=== PATIENT | male | born 1935 | race Caucasian/White ===

== ENCOUNTER 2016-07-08 11:50 | Observation (INO) ==
[2016-07-08] MEDS ORDERED: 0.9 % Sodium Chloride 1,000 ML ONE (11:58)
[2016-07-08 12:08] LABS: Basophils # 0.1 K/mcL (0.0-0.2); Basophils % 0.5 %; Eosinophils # 0.1 K/mcL (0.0-0.6); Hematocrit 37.6 % (37.5-50.1); Hemoglobin 12.3 g/dL (12.9-16.9); Immature Granulocytes % 4.4 % (0-4); Lymphocytes # 1.1 K/mcL (0.6-4.6); Lymphocytes % 11.1 %; Mean Corpuscular HGB Conc 32.7 g/dL (31.6-35.5); Mean Corpuscular Hemoglobin 31.6 pg (28.0-33.3); Mean Corpuscular Volume 96.7 fL (83.0-100.0); Mean Platelet Volume 10.1 fL (9.4-12.4); Monocytes # 0.7 K/mcL (0.0-1.3); Monocytes % 6.9 %; Neutrophils # 7.6 K/mcL (1.6-8.9); Platelet Count 264 K/mcL (140-400); Red Blood Count 3.89 M/mcL (4.19-5.50); Red Cell Distribution Width 14.6 % (11.5-14.5); Segmented Neutrophils % 76.1 %
[2016-07-08 12:12] LABS: INR 1.3; Prothrombin Time 13.6 Seconds (9.4-12.1)
[2016-07-08 12:14] LABS: Activated Partial Thrombo Time 24.8 Seconds (26.0-36.0)
[2016-07-08] MEDS ORDERED: 0.9 % Sodium Chloride 1,000 ML IVC ONE ×2 (12:16→14:57)
--- NOTE | 2016-07-08 12:17 | Emergency Department Note ---
Disposition Clinical Impression: Syncope, Lumbar transverse process fracture, Lumbar vertebral fracture, Frail elderly, Hypotension, Anemia, Renal failure, Aortic aneurysm, Renal cyst, Pneumobilia, Cerebrovascular disease Disposition: Admitted As Inpatient Condition: Fair Referrals: NO,PCP [Non-Partnered Physician] - Forms: ED Satisfaction Letter General Adult HPI - General Chief complaint: ED Syncope Stated complaint: syncope Time Seen by Provider: 07/08/16 11:57 Source: EMS Limitations: no limitations - History of Present Illness HPI Narrative: 80-year-old male was feeling well this morning, he attended [facility] with his . Apparently he stood up and had a syncopal event. The patient became unresponsive but then revived. There is no history of demetri seizure-like activity. The patient's reports there was a nurse at the [facility] who was at the scene. The was worried about a stroke but the states the nurse at the scene did not think the patient had a stroke. The patient has back pain status post syncope. Per his he has had some sort of large vessel repair in his chest or abdomen. He is not known to be anticoagulated. The patient complains of back pain. There is no history of unilateral arm weakness or numbness no slurred speech or confusion no history of demetri head injury no paresis. No lacerations or bleeding. The patient has had no chest pain shortness breath or abdominal pain no leg swelling or pain no upper or lower extremity pain or injury. No bleeding. The patient was feeling very well this morning and had no antecedent complaints. There is no history of coughing up blood or leg swelling or pain. No coolness or blueness of the extremities. The patient's reports that he appears to be pale. He came in by EMS. Pain Scale: 3 - Related Data Home Medications Medication Instructions Recorded Confirmed Alendronate Sodium [Fosamax] 70 mg PO QWEEK 04/09/15 04/09/15 Aspirin 81 mg PO DAILY 04/09/15 04/09/15 Donepezil [Aricept] 10 mg PO DAILY 04/09/15 04/09/15 InFLIXimab [Remicade] 300 mg IV [id number] 04/09/15 04/09/15 Lisinopril [Zestril] 20 mg PO DAILY 04/09/15 04/09/15 Methotrexate 0.8 ml SQ QWEEK 04/09/15 04/09/15 Metoprolol [Lopressor] 25 mg PO BID 04/09/15 04/09/15 Naproxen Sod/Diphenhydram HCl 1 tab PO BID 04/09/15 04/09/15 [Aleve Pm Caplet] Oxycodone HCl [Oxaydo] 1 - 2 tab-cap PO PRN PRN 04/09/15 04/09/15 Sertraline [Zoloft] 100 mg PO DAILY 04/09/15 04/09/15 Trospium Chloride 20 mg PO HS 04/09/15 04/09/15 Previous Rx's Medication Instructions Recorded Levofloxacin [Levaquin] 500 mg PO DAILY #7 tablet 04/09/15 HYDROcodone/Acet 5/325 mg [[place] 1 tab PO Q6H PRN #20 tab 05/16/16 5-325 mg] Allergies Allergy/AdvReac Type Severity Reaction Status Date / Time No Known Allergies Allergy Verified 04/09/15 02:11 All systems ED: reviewed and negative except as stated. Past Medical History - Past Medical History Medical history: Reports: cancer, coronary artery disease, hyperlipidemia, hypertension, RA, other Surgical history: Reports: non-contributory Psychiatric history: Reports: depression - Social History Smoking Status: Never smoker Smokeless Tobacco Status: No Alcohol use: Reports: occasionally Drug use: Reports: none Physical Exam - General Limitations: no limitations General appearance: alert, in no apparent distress - Head Head exam: atraumatic, normocephalic, normal inspection - Eye Eye exam: Present: normal appearance, PERRL, EOMI, miosis. Absent: scleral icterus, conjunctival injection - ENT ENT exam: normal exam, normal oropharynx, mucous membranes moist, normal external ear exam (Hearing aids bilaterally) - Neck Neck exam: Present: normal inspection, full ROM, trachea midline - Chest Chest inspection: Present: normal inspection, symmetric chest wall rise. Absent : tenderness - Respiratory Respiratory exam: Present: normal lung sounds bilaterally. Absent: respiratory distress, prolonged expiratory phase - Cardiovascular Cardiovascular exam: Present: regular rate, normal rhythm, normal heart sounds - Abdominal Exam Abdominal exam: Present: soft, Non-Tender, normal bowel sounds. Absent: tenderness, distention, guarding, rebound, rigidity, trauma, pulsatile mass - Extremities Exam Extremities exam: Present: normal inspection, full ROM, normal capillary refill. Absent: tenderness, pedal edema, joint swelling, calf tenderness - Expanded Lower Extremity Exam Hip/Pelvis exam: Present: full ROM. Absent: tenderness Upper leg exam: Present: full ROM. Absent: tenderness Knee exam: Present: full ROM. Absent: tenderness Lower leg exam: Present: full ROM. Absent: tenderness, Homans' sign Foot/toe exam: Present: full ROM. Absent: tenderness Neurovascular/Tendon exam: Present: normal capillary refill. Absent: motor deficit, sensory deficit, tendon deficit, extremity cold to touch, pallor - Back Exam Back exam: Present: normal inspection, full ROM, tenderness. Absent: CVA tenderness (R), CVA tenderness (L) - Neurological Exam Neurological exam: Present: alert, oriented X3, CN II-XII intact. Absent: motor sensory deficit - Psychiatric Psychiatric exam: Present: normal affect, normal mood - Skin Skin exam: Present: warm, dry, intact, normal color. Absent: rash, cyanosis, diaphoresis, erythema, pallor, mottled Course Vital Signs Temperature 97.7 F 07/08/16 11:51 Pulse Rate 65 07/08/16 11:51 Respiratory Rate 18 07/08/16 11:51 Blood Pressure 85/54 07/08/16 11:51 O2 Sat by Pulse Oximetry 93 07/08/16 11:51 Temperature 97.7 F 07/08/16 11:51 Pulse Rate 65 07/08/16 11:51 Respiratory Rate 18 07/08/16 11:51 Blood Pressure 85/54 07/08/16 11:51 O2 Sat by Pulse Oximetry 93 07/08/16 11:51 Oxygen Delivery Oxygen Delivery Room Air Medical Decision Making - [facility] Narrative Medical decision making narrative: The patient is elderly and had a syncopal event, his blood pressure was noted to be low here. The patient was given IV fluids, his imaging reveals lumbar compression fracture as well as lumbar spinous process fractures. The patient has a known history of aortic aneurysm, no evidence of dissection at this time. The patient was given fentanyl in the ED for pain control. Based on his syncopal event, multiple comorbidities, acute spinal fractures, and persistent hypotension, I thought it would be appropriate to admit the patient to the hospital. I discussed the case with the hospitalist on all was accepted the patient to their care. - Lab Data Lab results reviewed: Yes I reviewed the patient's lab results. Result diagrams: 07/08/16 12:00 07/08/16 12:00 Lab Results 07/08/16 07/08/16 07/08/16 Range/Units 12:00 12:00 12:00 WBC 10.0 (4.3-11.1) K/mcL RBC 3.89 L (4.19-5.50) M/mcL Hgb 12.3 L (12.9-16.9) g/dL Hct 37.6 (37.5-50.1) % MCV 96.7 (83.0-100.0) fL MCH 31.6 (28.0-33.3) pg MCHC 32.7 (31.6-35.5) g/dL RDW 14.6 H (11.5-14.5) % Plt Count 264 (140-400) K/mcL MPV 10.1 (9.4-12.4) fL Immature Gran % 4.4 H (0-4) % Seg Neutrophils % 76.1 % Lymphocytes % 11.1 % Monocytes % 6.9 % Eosinophils % 1.0 % Basophils % 0.5 % Neutrophils # 7.6 (1.6-8.9) K/mcL Lymphocytes # 1.1 (0.6-4.6) K/mcL Monocytes # 0.7 (0.0-1.3) K/mcL Eosinophils # 0.1 (0.0-0.6) K/mcL Basophils # 0.1 (0.0-0.2) K/mcL PT 13.6 H (9.4-12.1) Seconds INR 1.3 APTT 24.8 L (26.0-36.0) Seconds Sodium 139 (136-145) mEq/L Potassium 3.9 (3.5-4.5) mEq/L Chloride 105 (98-109) mEq/L Carbon Dioxide 23 (19-29) mEq/L BUN 14 (8-26) mg/dL Creatinine 1.40 H (0.72-1.25) mg/dL Est GFR ( Amer) 59 L (> 60) Est GFR (Non-Af Amer) 49 L (> 60) BUN/Creatinine Ratio 10 (6-26) Glucose 118 H (70-99) mg/dL Calculated Osmolality 290 (280-300) Lactic Acid (0.5-2.2) mmol/L Calcium 8.7 (8.6-10.8) mg/dL Total Bilirubin 0.8 (0.2-1.2) mg/dL Direct Bilirubin 0.3 (0.0-0.5) mg/dL Indirect Bilirubin 0.5 (0.0-1.2) mg/dL AST 20 (5-34) Units/L ALT 20 (0-55) Units/L Alkaline Phosphatase 64 (38-126) Units/L Troponin I (0-0.03) ng/mL C-Reactive Protein (Less than 5) mg/L Serum Total Protein 6.3 (6.0-8.3) g/dL Albumin 2.7 L (3.5-5.0) g/dL Globulin 3.6 H (2.4-3.5) g/dL Albumin/Globulin Ratio 0.8 L (1.1-2.2) 07/08/16 07/08/16 07/08/16 Range/Units 12:00 12:00 12:00 WBC (4.3-11.1) K/mcL RBC (4.19-5.50) M/mcL Hgb (12.9-16.9) g/dL Hct (37.5-50.1) % MCV (83.0-100.0) fL MCH (28.0-33.3) pg MCHC (31.6-35.5) g/dL RDW (11.5-14.5) % Plt Count (140-400) K/mcL MPV (9.4-12.4) fL Immature Gran % (0-4) % Seg Neutrophils % % Lymphocytes % % Monocytes % % Eosinophils % % Basophils % % Neutrophils # (1.6-8.9) K/mcL Lymphocytes # (0.6-4.6) K/mcL Monocytes # (0.0-1.3) K/mcL Eosinophils # (0.0-0.6) K/mcL Basophils # (0.0-0.2) K/mcL PT (9.4-12.1) Seconds INR APTT (26.0-36.0) Seconds Sodium (136-145) mEq/L Potassium (3.5-4.5) mEq/L Chloride (98-109) mEq/L Carbon Dioxide (19-29) mEq/L BUN (8-26) mg/dL Creatinine (0.72-1.25) mg/dL Est GFR ( Amer) (> 60) Est GFR (Non-Af Amer) (> 60) BUN/Creatinine Ratio (6-26) Glucose (70-99) mg/dL Calculated Osmolality (280-300) Lactic Acid 1.7 (0.5-2.2) mmol/L Calcium (8.6-10.8) mg/dL Total Bilirubin (0.2-1.2) mg/dL Direct Bilirubin (0.0-0.5) mg/dL Indirect Bilirubin (0.0-1.2) mg/dL AST (5-34) Units/L ALT (0-55) Units/L Alkaline Phosphatase (38-126) Units/L Troponin I 0.00 (0-0.03) ng/mL C-Reactive Protein 33 H (Less than 5) mg/L Serum Total Protein (6.0-8.3) g/dL Albumin (3.5-5.0) g/dL Globulin (2.4-3.5) g/dL Albumin/Globulin Ratio (1.1-2.2) - Radiology Data Radiology results reviewed: Yes I reviewed the patient's radiology results.
[2016-07-08 12:21] LABS: Albumin 2.7 g/dL (3.5-5.0); Albumin/Globulin Ratio 0.8 (1.1-2.2); Bilirubin,Direct 0.3 mg/dL (0.0-0.5); Bilirubin,Indirect 0.5 mg/dL (0.0-1.2); Bilirubin,Total 0.8 mg/dL (0.2-1.2); Calcium 8.7 mg/dL (8.6-10.8); Globulin 3.6 g/dL (2.4-3.5); Potassium 3.9 mEq/L (3.5-4.5); Total Protein 6.3 g/dL (6.0-8.3)
[2016-07-08] MEDS ORDERED: Ondansetron 4 MG/2 ML VIAL IVP ONE (13:37)
[2016-07-08] MEDS ORDERED: *HR* FentaNYL (PF) 100 MCG/2 ML VIAL IVP ONE (13:38)
[2016-07-08 15:19] LABS: Bilirubin,Urine Negative (Negative); Blood,Urine Negative (Negative); Clarity,Urine Clear (Clear); Color,Urine Dark Yellow (Yellow); Glucose,Urine (UA) Normal (Normal); Ketones,Urine Negative (Negative); Leukocyte Esterase,Urine Negative (Negative); Nitrite,Urine Negative (Negative); PH,Urine 6.5 pH Units (5.0-8.0); Protein,Urine 30 mg/dL (Neg-Trace); Specific Gravity,Urine > 1.030 (1.010-1.025); Urobilinogen,Urine Normal (Normal)
[2016-07-08 15:20] LABS: Hyaline Casts,Urine None Seen per lpf (None-Few)
[2016-07-08 15:46] LABS: Squamous Epithelial Cell,Urine Few per lpf (None-Few)
[2016-07-08 15:47] LABS: Bacteria,Urine Few per hpf (None-Few); RBC,Urine 0-3 per hpf (0-3); WBC,Urine 0-3 per hpf (0-3)
[2016-07-08] MEDS ORDERED: Naloxone 0.4 MG/ML INJ IVP PRN (17:56)
[2016-07-08] MEDS ORDERED: Nitroglycerin 0.4 MG TAB.SUBL SL PRN (18:00)
--- NOTE | 2016-07-08 18:17 | Internal Med History&Physical ---
<Faith Nick - Last Filed: 07/08/16 20:08> Date of Encounter: 07/08/16 Time of Encounter: 18:06 Assessment and Plan (1) Syncope Current visit: Yes Status: Acute 1 patient experienced syncopal episode with positional change. 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 According to cardiology notes stress test was positive for ischemia , inferior wall and inferior septum. Suspected related to recent rib fracture. He had evidence of coronary artery calcification on recent chest CT at that time aggressive medical therapy with aspirin and beta raphael and low-dose nitrate therapy was initiated. Patient is on lisinopril metoprolol as well as Isorbid. Upon presentation to the ER patient's blood pressure was 85 systolic EKG sinus rhythm with multiple PVCs. Suspected this episode was related to orthostatic changes , and medications. We will hold antihypertensives for now. Obtain orthostatic vitals 2 we will give IV fluids 3 place patient on fall precautions 4 continuous cardiac monitoring 5 consult cardiology 6 patient to follow-up with [facility] concerning aneurysms as outpatient 7 cardiac echo Qualifiers: Syncope type: unspecified Qualified Code(s): R55 - Syncope and collapse (2) Hypotension Current visit: No Status: Acute 1 patient is on lisinopril I cervicitis as well as metoprolol. He did experience an episode of syncope today during positional change. Upon presentation his systolic pressure is 85. We will hold antihypertensives for now-we will reevaluate and initiate antihypertensives once back to baseline 2 we will give IV fluids 3 plus patient on fall precautions Qualifiers: Hypotension type: hypotension due to drug Qualified Code(s): I95.2 - Hypotension due to drugs (3) CAD (coronary artery disease) Current visit: Yes Status: Acute 1 patient has history of coronary disease he is chest pain free we will continue with aspirin and statin we will hold lisinopril, nitrates and beta raphael for now due to hypotension and syncope. 2 cardiac diet Qualifiers: Coronary Disease-Associated Artery/Lesion type: [place] artery [place] vs. 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 Will have patient follow-up and monitor as outpatient with [facility] Qualifiers: Aortic location: abdominal aorta Presence of rupture: without rupture Qualified Code(s): I71.4 - Abdominal aortic aneurysm, without rupture (6) Lumbar transverse process fracture Current visit: Yes Status: Acute 1 continue with pain medications 2 PT consult 3 consult spine as needed Qualifiers: Encounter type: initial encounter Fracture type: closed Qualified Code(s) : S32.008A - Other fracture of unspecified lumbar vertebra, initial encounter for closed fracture (7) DVT prophylaxis Current visit: Yes Status: Acute GABRIEL coppola Internal Medicine - H&P: HPI Chief complaint: syncope Admitted From: Emergency Dept Plans for Post Hospital Care: Home History of present illness: Mr. 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 Information obtained from medical record. Apparently the patient was [facility] this [facility] when he stood up and experienced a syncopal episode. He was unresponsive however revived within a few minutes, awake and appropriate. He did not display any seizure activity or loss of bowel or bladder during the episode. Patient denies any chest pain palpitations lightheadedness dizziness prior to the episode. He did complain of back pain status post syncope. He experienced no arm weakness numbness or speech confusion or headache injury. Denies any recent illness fevers chills nausea vomiting chest pain cough or shortness of breath. He presented to ER with above complaints. CT of patient' s head was negative for any intercurrent abnormalities. Cervical spine was negative. Lumbar spine revealed acute supine endplate fracture of L1. CTA chest abdomen revealed stable [place] type B dissection of descending thoracic aorta similar in comparison with prior exam. Stable mild basilar airspace disease.. Multiple left renal cysts. Atherosclerotic disease of the abdominal aorta with a 2.8 cm infrarenal AAA. Acute fractures of the right transverse process of L1 and L2. Mild wedge compression deformities of this. End plates of L3 and L4 which are likely chronic. Lab work was unremarkable troponin 0. Patient was given IV fluids as well as pain medication. EKG did reveal sinus rhythm with PVCs which appears to be similar to previous EKG. Patient was admitted for further workup and evaluation. Presently patient denies any chest pain shortness of breath and lightheadedness. He is alert appropriate following commands, cranial nerves II through XII intact equal strength 4. Sinus rhythm on the monitor hemodynamic stable at this time. Reviewed with Dr Thomas who agrees with plan Past Med Surg Social Fam HX - Past Medical History Medical history: cancer, coronary artery disease, hyperlipidemia, hypertension, RA, other Psychiatric history: depression - Past Surgical History Surgical History: non-contributory - Social History Smoking Status: Never smoker Smokeless Tobacco Status: No Alcohol use: occasionally Drug use: none - Family History Son Living Status: Still Living Hx Family Endocrine Disorder: Yes (dm) Internal Medicine - H&P: Meds Alendronate Sodium [Fosamax] 70 mg PO QWEEK 04/09/15 [History] Aspirin 81 mg PO DAILY 04/09/15 [History] Donepezil [Aricept] 10 mg PO DAILY 04/09/15 [History] Methotrexate 0.8 ml SQ QWEEK 04/09/15 [History] Metoprolol [Lopressor] 25 mg PO BID 04/09/15 [History] Sertraline [Zoloft] 100 mg PO DAILY 04/09/15 [History] Cholecalciferol (D-3) [Vitamin D] 1,000 unit PO DAILY 07/08/16 [History] Isosorbide MONOnitrate (24 HR) [Imdur] 30 mg PO DAILY 07/08/16 [History] Lisinopril [Zestril] 10 mg PO DAILY PRN 07/08/16 [History] Nitroglycerin [Nitrostat] 0.4 mg SL Q5M PRN 07/08/16 [History] [place]-3/Dha/Epa/Fish Oil [Fish Oil 1,000 mg Softgel] 1,000 mg PO DAILY 07/08/16 [History] Simvastatin [Zocor] 20 mg PO HS 07/08/16 [History] riTUXimab [Rituxan] 100 mg IV [id number] 07/08/16 [History] Allergies No Known Allergies Allergy (Verified 04/09/15 02:11) All Systems PM: A 10-system review of systems was performed and is negative for pertinent findings except as documented above in the HPI. - Constitutional Constitutional: no chills, no fever(s), no night sweats - Cardiovascular Cardiovascular ROS IM: syncope, no chest pain, no diaphoresis, no dyspnea, no lightheadedness, no palpitations - Respiratory Respiratory: no cough, no dyspnea, no wheezing, no excessive phlegm production - Gastrointestinal Gastrointestinal: no abdominal pain, no diarrhea, no hematemesis, no hematochezia, no melena, no nausea, no vomiting - Musculoskeletal Musculoskeletal ROS IM: back pain - Integumentary Integumentary IM: no rash, no unusual bruising - Neurological Neurological ROS: weakness - Constitutional Vitals: Temp Pulse Resp BP Pulse Ox 98.3 F 87 16 118/63 97 07/08/16 17:10 07/08/16 17:10 07/08/16 17:10 07/08/16 17:10 07/08/16 17:10 General appearance: Present: A&O X 3 - Head Head exam: Present: atraumatic, normocephalic - Neck Neck exam general surgery: Present: supple, trachea midline. Absent: lymphadenopathy - Respiratory Respiratory exam: Present: CTAB. Absent: accessory muscle use, rales, rhonchi, wheezes - Cardiovascular Cardiovascular exam: Present: RRR, +S1, +S2. Absent: diastolic murmur, gallop, rubs, systolic murmur - GI/Abdominal GI/Abdominal exam: Present: normal bowel sounds, soft, no peritoneal signs. Absent: distended, tenderness - Extremities Exam Extremities exam: Present: warm, radial pulses palpable and symetrical. Absent : calf tenderness, cyanotic, pedal edema - Neurological Exam Neurological exam: Present: CN II-XII intact, oriented X3, no focal deficits, strengths equal and symetr throughout. Absent: pronater drift, facial droop, speech deficit - Skin Skin exam: Present: dry, intact Internal Med - H&P Results - Labs CBC & Chem 7: 07/08/16 12:00 07/08/16 12:00 - EKG Data EKG shows normal: sinus rhythm - EKG Data Prior EKG available for review: yes When compared to previous EKG: there is no significant change EKG comments: 07/08/16 18:28 Frequent PVCs - Diagnostic Studies Other Images Additional comments: Head CT 07/08/16 12:01 IMPRESSION: No evidence of acute intracranial hemorrhage or mass effect. Stable mild cerebral white matter disease. D/ / Troy Abdalla MD / Troy Abdalla MD Interpreting Provider: Troy Abdalla MD Thoracic Spine CT 07/08/16 12:11 IMPRESSION: No evidence of acute fracture or subluxation in the thoracic spine. D/ / Troy Abdalla MD / Troy Abdalla MD Interpreting Provider: Troy Abdalla MD Lumbar Spine CT 07/08/16 12:12 IMPRESSION: Extensive osteopenia limits evaluation. Suspect acute superior endplate fracture of L1 without significant height loss or dorsal osseous retropulsion. D/ / Troy Abdalla MD / Troy Abdalla MD Interpreting Provider: Troy Abdalla MD Abdomen/Pelvis CTA 07/08/16 12:15 IMPRESSION: 1. 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 There is no evidence of thoracic aortic leak or rupture. 2. Stable mild bibasilar airspace disease likely reflects atelectasis, less likely aspiration or pneumonia. 3. No acute abnormality within the abdomen or pelvis. 4. Mild nonspecific left-sided pneumobilia. 5. Nonvisualization of the right kidney, likely either surgically or congenitally absent. 6. Multiple left renal cysts. 7. Atherosclerotic disease of the abdominal aorta, with a 2.8 cm infrarenal AAA. Further follow-up of this abnormality is as suggested below. 8. Acute fractures of the right transverse processes of L1 and L2. There are mild wedge compression deformities of the superior endplates of L3 and L4, which are likely chronic, however, will be fully detailed on today's lumbar CT report. RECOMMENDATIONS: Managing Abdominal Aortic Aneurysms 2.6-2.9 cm: 5 year follow up. Reference: Meera et al. The care of patients with an abdominal aortic aneurysm: The Society of Vascular Surgery practice guidelines. Journal of Vascular Surgery. Vol 50, Number 85. Khosa et al. Managing Incidental Findings on Abdominal and Pelvic CT and MRI, Part 2: White Paper of the ACR Incidental Findings Committee II on Vascular Findings. J Am Donya Radiol 2013;10:789-794 D/ / 07/08/2016 14:29:39 Bart Rios MD / Neema Ahuja Interpreting Provider: Bart Rios MD Chest CTA 07/08/16 12:15 IMPRESSION: 1. 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 There is no evidence of thoracic aortic leak or rupture. 2. Stable mild bibasilar airspace disease likely reflects atelectasis, less likely aspiration or pneumonia. 3. No acute abnormality within the abdomen or pelvis. 4. Mild nonspecific left-sided pneumobilia. 5. Nonvisualization of the right kidney, likely either surgically or congenitally absent. 6. Multiple left renal cysts. 7. Atherosclerotic disease of the abdominal aorta, with a 2.8 cm infrarenal AAA. Further follow-up of this abnormality is as suggested below. 8. Acute fractures of the right transverse processes of L1 and L2. There are mild wedge compression deformities of the superior endplates of L3 and L4, which are likely chronic, however, will be fully detailed on today's lumbar CT report. RECOMMENDATIONS: Managing Abdominal Aortic Aneurysms 2.6-2.9 cm: 5 year follow up. Reference: Meera et al. The care of patients with an abdominal aortic aneurysm: The Society of Vascular Surgery practice guidelines. Journal of Vascular Surgery. Vol 50, Number 85. Khosa et al. Managing Incidental Findings on Abdominal and Pelvic CT and MRI, Part 2: White Paper of the ACR Incidental Findings Committee II on Vascular Findings. J Am Donya Radiol 2013;10:789-794 D/ / 07/08/2016 14:29:39 Bart Rios MD / Neema Ahuja Interpreting Provider: Bart Rios MD Cervical Spine CT 07/08/16 12:16 IMPRESSION: 1. No evidence of an acute fracture in the cervical spine. D/ / 07/08/2016 14:19:44 Luigi Pack MD / Neema Ahuja Interpreting Provider: Luigi Pack MD <Chet Thomas - Last Filed: 07/08/16 21:53> Date of Encounter: 07/08/16 - Constitutional Vitals: Temp Pulse Resp BP Pulse Ox 98.6 F 70 16 119/69 93 07/08/16 20:50 07/08/16 20:50 07/08/16 20:50 07/08/16 20:50 07/08/16 20:50 General appearance: Present: A&O X 3, no acute distress - Head Head exam: Present: atraumatic, normocephalic - Expanded Head Exam Head exam expanded: Absent: abrasion, contusion, general tenderness - Respiratory Respiratory exam: Present: CTAB - Cardiovascular Cardiovascular exam: Present: RRR, +S1, +S2. Absent: diastolic murmur, JVD, systolic murmur - GI/Abdominal GI/Abdominal exam: Present: soft. Absent: tenderness - Neurological Exam Neurological exam: Present: alert, CN II-XII intact, oriented X3, no focal deficits Internal Med - H&P Results - Labs CBC & Chem 7: 07/08/16 12:00 07/08/16 12:00 Labs: Cardiac Enzymes 07/08/16 Range/Units 18:43 Troponin I 0.00 (0-0.03) ng/mL - EKG Data Prior EKG available for review: yes EKG comments: 07/08/16 21:48 Sinus rhythm with PVC's - Attending Attestation I discussed the patient COEUR D'ALENE, PMH, ROS, lab data, and exam findings with Faith Nick. I then saw and examined patient independently as well. Patient is comfortable and has no complaints. He denies any presyncopal symptoms. His BP was low upon arrival to ER. History suggests orthostatic hypotension likely related to his new meds. I agree with Faith's plan to hold Lisinopril and Imdur. I agree with ECHO and cardiology consultation given recent + stress test. Patient may not tolerate medical management and may warrant LHC. However , I'll defer to cardiology. Other than my comments and noted exam findings, I agree with Faith's assessment and plan.
[2016-07-08] MEDS: 0.9 % Sodium Chloride 1,000 ML IVC SCH (18:41)
[2016-07-08] MEDS ORDERED: Acetaminophen 325 MG TABLET PO PRN (20:09)
[2016-07-08] MEDS ORDERED: *HR* HYDROcodone/Acet 5/325 mg TABLET PO PRN (20:09)
[2016-07-09 01:16] LABS: BUN/Creatinine Ratio 12 (6-26); Blood Urea Nitrogen 14 mg/dL (8-26); Calcium 7.9 mg/dL (8.6-10.8); Carbon Dioxide 21 mEq/L (19-29); Chloride 108 mEq/L (98-109); Glucose 81 mg/dL (70-99); Osmolality,Calculated 282 (280-300); Sodium 136 mEq/L (136-145); eGFR For African Americans > 60 (> 60); eGFR For Non-African Americans > 60 (> 60)
[2016-07-09 01:26] LABS: Basophils % 0.3 %; Eosinophils # 0.1 K/mcL (0.0-0.6); Hematocrit 29.3 % (37.5-50.1); Hemoglobin 9.7 g/dL (12.9-16.9); Immature Granulocytes % 1.7 % (0-4); Lymphocytes % 10.7 %; Mean Corpuscular HGB Conc 33.1 g/dL (31.6-35.5); Mean Corpuscular Hemoglobin 31.9 pg (28.0-33.3); Mean Corpuscular Volume 96.4 fL (83.0-100.0); Mean Platelet Volume 10.6 fL (9.4-12.4); Monocytes # 0.7 K/mcL (0.0-1.3); Monocytes % 7.6 %; Neutrophils # 7.6 K/mcL (1.6-8.9); Platelet Count 177 K/mcL (140-400); Red Blood Count 3.04 M/mcL (4.19-5.50); Red Cell Distribution Width 14.4 % (11.5-14.5); Segmented Neutrophils % 78.7 %
[2016-07-09 05:57] LABS: Hematocrit 30.2 % (37.5-50.1)
[2016-07-09] MEDS: Cholecalciferol (D-3) 1,000 UNIT TABLET PO SCH (08:40)
[2016-07-09] MEDS: Aspirin 81 MG TAB.CHEW PO SCH (08:40)
[2016-07-09] MEDS ORDERED: (Omega-3/Dha/Epa/Fish Oil [Fish Oil 1,000 Mg Softgel] PO SCH (09:00)
[2016-07-09] MEDS: 0.9 % Sodium Chloride 1,000 ML IVC SCH (09:06)
--- NOTE | 2016-07-09 11:10 | Cardiology Consult Note ---
Addendum entered and electronically signed by Brad Tai CNP 07/09/16 14:19: Echo resulted--EF 50-55%, mild diastolic dysfunction. Mild TR and RI. Anticipate sign off once seen by Dr. Moyer. If systolic BP is persistently <100, then recommend decreasing his BB. Will schedule outpt follow-up with Dr. Marlena De Santiago in 2-3 weeks. Continue keeping BP log. Carotid dopplers ordered- -not yet complete. Original Note: Date of Encounter: 07/09/16 Time of Encounter: 11:02 Assessment and Plan (1) Syncope Current Visit: Yes Status: Acute Syncope likely vasovagal. Syncopal event was upon standing. BP was 85/54 on presentation. Orthostatic vitals were obtained--positive at 4AM. BP was 112/56 lying, 115/59 sitting, 94/47 standing. Orthostatics negative at 10AM. Recommend IV hydration and increased PO hydration at home, as reports he does not drink much water. 24 hour tele reviewed--AVG HR 71, PVCs, but no significant pauses or ventricular arrhythmias noted. Echo pending to evaluate structure and function. Most recent echo 03/29/15 EF 50 % with mild diastolic dysfunction. Recent stress test 06/05/16 could not rule out ischemia. Visual evidence of TID. Medical management was recommended and Imdur was started 30mg daily. Pt has been chest pain free. Does report exertional dyspnea, but no worsening. BP was noted to be lower since starting Imdur. Will discontinue Imdur. Check carotid dopplers. Carotid duplex 03/2015 showed a left mid ICA severe 60- 79% stenosis by velocity criteria but no significant plaque. Await echo results for further recommendations. 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 BP controlled. Follows with [facility]S at [facility] as outpatient (3) Carotid stenosis Current Visit: Yes Status: Chronic 03/2015 carotid dopplers showed left mid ICA severe 60-79% stenosis by velocity criteria, but no significant plaque. Recheck carotid dopplers. Reports has not been checked since 12/2015 at [facility]. Follows with PVS at [facility]. Continue ASA, Statin. Qualifiers: Laterality: left Qualified Code(s): I65.22 - Occlusion and stenosis of left carotid artery Discussion w patient/family: The assessment and plan as outlined above was discussed with the patient and/or family members who expressed understanding and agreement. All questions were answered. Thank you for involving us in the care of your patient. Please call with any questions. I will discuss all the above with Dr. Moyer and make changes as necessary. History of Present Illness Consult date: 07/09/16 Requesting physician: Chet Thomas Consult reason: syncope Chief complaint: syncope History of present illness: Mr. Escalona is a 80 year old male with PMH of HTN, dissecting aneurysm thoracic aorta [place] type B, RA, HLD, congenital solitary kidney. Patient was at [employer] yesterday morning when he stood up and experienced a syncopal episode. He is unsure if he had dizziness or lightheadedness, stating he does not remember anything from the event. He was unresponsive, but regained consciousness within a few minutes. He did not display any seizure activity or loss of bowel or bladder during the episode. He denies chest pain. Reports exertional dyspnea, but no recent worsening. CT of head was negative for any acute abnormalities. Cervical spine was negative. Lumbar spine revealed acute supine endplate fracture of L1. CTA chest abdomen revealed stable [place] type B dissection of descending thoracic aorta similar in comparison with prior exam. Atherosclerotic disease of the abdominal aorta with a 2.8 cm infrarenal AAA. Acute fractures of the right transverse process of L1 and L2. Mild wedge compression deformities of this. End plates of L3 and L4 which are likely chronic. BP was 85/54 on presentation to ED. Troponins negative x 3. Recent stress test 06/05/16 showed hypoperfusion on rest and stress images in the inferior wall, inferior septum and inferolateral ang with normal wall motion, findings of which are consistent with artifact. However, there may be mild worsening of perfusion on stress images. Ischemia cannot be ruled out on this study. Visual evidence of TID. Pt saw Dr. Marlena De Santiago 06/20/16 and Imdur was started--recommended medical therapy as initial tx, as CP was thought to be mostly secondary to rib fractures, although his anginal equivalent may be dyspnea. After starting Imdur, reports BP was lower than usual and he also had the flu, was not eating or drinking much. Over the past week she reports appetite has improved and BP has been okay, only one reading <100 systolic. Past Med Surg Social Fam HX - Past Medical History Medical history: cancer, coronary artery disease, hyperlipidemia, hypertension, RA, other Psychiatric history: depression - Past Surgical History Surgical History: non-contributory - Social History Smoking Status: Never smoker Smokeless Tobacco Status: No Alcohol use: occasionally Drug use: none - Family History Son Living Status: Still Living Hx Family Endocrine Disorder: Yes (dm) Medications and Allergies Alendronate Sodium [Fosamax] 70 mg PO QWEEK 04/09/15 [History] Aspirin 81 mg PO DAILY 04/09/15 [History] Donepezil [Aricept] 10 mg PO DAILY 04/09/15 [History] Methotrexate 0.8 ml SQ QWEEK 04/09/15 [History] Metoprolol [Lopressor] 25 mg PO BID 04/09/15 [History] Sertraline [Zoloft] 100 mg PO DAILY 04/09/15 [History] Cholecalciferol (D-3) [Vitamin D] 1,000 unit PO DAILY 07/08/16 [History] Isosorbide MONOnitrate (24 HR) [Imdur] 30 mg PO DAILY 07/08/16 [History] Lisinopril [Zestril] 10 mg PO DAILY PRN 07/08/16 [History] Nitroglycerin [Nitrostat] 0.4 mg SL Q5M PRN 07/08/16 [History] [place]-3/Dha/Epa/Fish Oil [Fish Oil 1,000 mg Softgel] 1,000 mg PO DAILY 07/08/16 [History] Simvastatin [Zocor] 20 mg PO HS 07/08/16 [History] riTUXimab [Rituxan] 100 mg IV [id number] 07/08/16 [History] Allergies No Known Allergies Allergy (Verified 04/09/15 02:11) All Systems Review: A 10-system review of systems was performed and is negative for pertinent findings except as documented above in the HPI. - Cardiovascular Cardiovascular: dyspnea on exertion, syncope - Respiratory Respiratory: dyspnea - Musculoskeletal Musculoskeletal: back pain - Neurological Neurological: syncope Physical Examination Vital Signs, Last 4 Hours Temp Pulse Resp BP BP BP BP 07/09/16 10:34 110/55 96/51 96/55 04/10/17 08:05 98.6 F 72 18 126/72 Pulse Ox 07/09/16 10:34 07/09/16 08:05 95 Vital Signs Temp Pulse Resp BP BP BP BP 07/09/16 10:34 110/55 96/51 96/55 07/09/16 08:05 98.6 F 72 18 126/72 07/09/16 06:43 98.8 F 72 18 129/74 07/09/16 04:58 94/47 07/09/16 04:57 115/59 07/09/16 04:56 98.7 F 69 18 112/56 07/09/16 00:00 98.6 F 74 18 124/67 07/08/16 20:50 98.6 F 70 16 119/69 07/08/16 17:10 98.3 F 87 16 118/63 07/08/16 16:30 18 97/77 07/08/16 14:21 68 18 97/77 07/08/16 13:21 62 18 95/72 07/08/16 11:51 97.7 F 65 18 85/54 Pulse Ox 07/09/16 10:34 07/09/16 08:05 95 07/09/16 06:43 95 07/09/16 04:58 07/09/16 04:57 07/09/16 04:56 96 07/09/16 00:00 94 07/08/16 20:50 93 07/08/16 17:10 97 07/08/16 16:30 07/08/16 14:21 97 07/08/16 13:21 97 07/08/16 11:51 93 Intake and Output 07/08/16 07/09/16 07/09/16 23:59 07:59 15:59 Intake Total 1200 / 1200 1190 / 1190 Output Total 150 / 150 100 / 100 Balance 1050 / 1050 -100 / -100 1190 / 1190 Intake: IV Fluids 1000 / 1000 950 / 950 0.9 % Sodium Chloride 1, 1000 / 1000 950 / 950 000 ML @ 75 mls/hr IVC . [id number] ТАТЬЯНА Rx#: [id number] Oral 200 / 200 240 / 240 Output: Urine 150 / 150 100 / 100 Other: Meal Breakfast Percent of Meal Consumed 50% # Voids 1 Blood Glucose* 72 General: Conversant, No Apparent Distress HEENT: Atraumatic, Normocephaly, Mucus Membranes Moist Neck: No JVD, Normal carotid pulses Cardiac: Reg Rate and Rhythm, Normal S1 and S2, No Murmur Lungs: Normal Breath Sounds, No Wheeze, Rales, Rhonchi Neuro: Alert and responsive, No focal deficits noted Abdomen: Soft, Non-Tender Skin: No rashes noted on visualized skin Musculoskeletal: No Chest Wall Tenderness Extremities: No Clubbing, No Cyanosis, No Edema, Normal Pulses Results 07/09/16 05:34 07/09/16 00:55 Lab Results 07/08/16 07/09/16 07/09/16 18:43 00:55 00:55 WBC 9.7 Hgb 9.7 L D Hct 29.3 L Plt Count 177 Sodium Potassium Chloride Carbon Dioxide BUN Creatinine Glucose Calcium Troponin I 0.00 0.00 07/09/16 07/09/16 00:55 05:34 WBC Hgb 10.0 L Hct 30.2 L Plt Count Sodium 136 Potassium 4.0 Chloride 108 Carbon Dioxide 21 BUN 14 Creatinine 1.15 Glucose 81 Calcium 7.9 L Troponin I Short CBC 07/09/16 07/09/16 07/08/16 Range/Units 05:34 00:55 12:00 WBC 9.7 10.0 (4.3-11.1) K/mcL Hgb 10.0 L 9.7 L D 12.3 L (12.9-16.9) g/dL Hct 30.2 L 29.3 L 37.6 (37.5-50.1) % Plt Count 177 264 (140-400) K/mcL Neutrophils # 7.6 7.6 (1.6-8.9) K/mcL BMP 07/09/16 07/08/16 Range/Units 00:55 12:00 Sodium 136 139 (136-145) mEq/L Potassium 4.0 3.9 (3.5-4.5) mEq/L Chloride 108 105 (98-109) mEq/L Carbon Dioxide 21 23 (19-29) mEq/L BUN 14 14 (8-26) mg/dL Creatinine 1.15 1.40 H (0.72-1.25) mg/dL Glucose 81 118 H (70-99) mg/dL Calcium 7.9 L 8.7 (8.6-10.8) mg/dL Cardiac Enzymes 07/09/16 07/08/16 07/08/16 Range/Units 00:55 18:43 12:00 Troponin I 0.00 0.00 0.00 (0-0.03) ng/mL Liver Function 07/08/16 Range/Units 12:00 Total Bilirubin 0.8 (0.2-1.2) mg/dL Direct Bilirubin 0.3 (0.0-0.5) mg/dL AST 20 (5-34) Units/L ALT 20 (0-55) Units/L Alkaline Phosphatase 64 (38-126) Units/L Albumin 2.7 L (3.5-5.0) g/dL Urine 07/08/16 Range/Units 14:45 Urine Color Dark Yellow (Yellow) Urine Clarity Clear (Clear) Urine pH 6.5 (5.0-8.0) pH Units Ur Specific [place] > 1.030 H (1.010-1.025) Urine Protein 30 H (Neg-Trace) mg/dL Urine Glucose (UA) Normal (Normal) mg/dL Impressions Head CT 07/08/16 12:01 IMPRESSION: No evidence of acute intracranial hemorrhage or mass effect. Stable mild cerebral white matter disease. D/ / Troy Abdalla MD / Troy Abdalla MD Interpreting Provider: Troy Abdalla MD Thoracic Spine CT 07/08/16 12:11 IMPRESSION: No evidence of acute fracture or subluxation in the thoracic spine. D/ / Troy Abdalla MD / Troy Abdalla MD Interpreting Provider: Troy Abdalla MD Lumbar Spine CT 07/08/16 12:12 IMPRESSION: Extensive osteopenia limits evaluation. Suspect acute superior endplate fracture of L1 without significant height loss or dorsal osseous retropulsion. D/ / Troy Abdalla MD / Troy Abdalla MD Interpreting Provider: Troy Abdalla MD Abdomen/Pelvis CTA 07/08/16 12:15 IMPRESSION: 1. Stable [place] type B dissection of the descending thoracic aorta, which appears similar in comparison with prior exams, and no evidence of intrathoracic or intra-abdominal extension. There is no evidence of thoracic aortic leak or rupture. 2. Stable mild bibasilar airspace disease likely reflects atelectasis, less likely aspiration or pneumonia. 3. No acute abnormality within the abdomen or pelvis. 4. Mild nonspecific left-sided pneumobilia. 5. Nonvisualization of the right kidney, likely either surgically or congenitally absent. 6. Multiple left renal cysts. 7. Atherosclerotic disease of the abdominal aorta, with a 2.8 cm infrarenal AAA. Further follow-up of this abnormality is as suggested below. 8. Acute fractures of the right transverse processes of L1 and L2. There are mild wedge compression deformities of the superior endplates of L3 and L4, which are likely chronic, however, will be fully detailed on today's lumbar CT report. RECOMMENDATIONS: Managing Abdominal Aortic Aneurysms 2.6-2.9 cm: 5 year follow up. Reference: Meera et al. The care of patients with an abdominal aortic aneurysm: The Society of Vascular Surgery practice guidelines. Journal of Vascular Surgery. Vol 50, Number 85. Jay et al. Managing Incidental Findings on Abdominal and Pelvic CT and MRI, Part 2: White Paper of the ACR Incidental Findings Committee II on Vascular Findings. J Am Donya Radiol 2013;10:789-794 D/ / 07/08/2016 14:29:39 Bart Rios MD / Neema Ahuja Interpreting Provider: Bart Rios MD Chest CTA 07/08/16 12:15 IMPRESSION: 1. Stable [place] type B dissection of the descending thoracic aorta, which appears similar in comparison with prior exams, and no evidence of intrathoracic or intra-abdominal extension. There is no evidence of thoracic aortic leak or rupture. 2. Stable mild bibasilar airspace disease likely reflects atelectasis, less likely aspiration or pneumonia. 3. No acute abnormality within the abdomen or pelvis. 4. Mild nonspecific left-sided pneumobilia. 5. Nonvisualization of the right kidney, likely either surgically or congenitally absent. 6. Multiple left renal cysts. 7. Atherosclerotic disease of the abdominal aorta, with a 2.8 cm infrarenal AAA. Further follow-up of this abnormality is as suggested below. 8. Acute fractures of the right transverse processes of L1 and L2. There are mild wedge compression deformities of the superior endplates of L3 and L4, which are likely chronic, however, will be fully detailed on today's lumbar CT report. RECOMMENDATIONS: Managing Abdominal Aortic Aneurysms 2.6-2.9 cm: 5 year follow up. Reference: Meera et al. The care of patients with an abdominal aortic aneurysm: The Society of Vascular Surgery practice guidelines. Journal of Vascular Surgery. Vol 50, Number 85. Jay et al. Managing Incidental Findings on Abdominal and Pelvic CT and MRI, Part 2: White Paper of the ACR Incidental Findings Committee II on Vascular Findings. J Am Donya Radiol 2013;10:789-794 D/ / 07/08/2016 14:29:39 Bart Rios MD / Neema Ahuja Interpreting Provider: Bart Rios MD Cervical Spine CT 07/08/16 12:16 IMPRESSION: 1. No evidence of an acute fracture in the cervical spine. D/ / 07/08/2016 14:19:44 Luigi Pack MD / Neema Ahuja Interpreting Provider: Luigi Pack MD Active Medications Acetaminophen (Tylenol) 650 mg PO Q6HR PRN PRN Reason: Mild Pain/Fever Stop: 01/07/17 20:10 Acetaminophen/Hydrocodone Bitart ([place] 5-325 Mg) 1 tab PO Q6HR PRN PRN Reason: Moderate Pain Stop: 01/07/17 20:10 Last Admin: 07/08/16 21:08 Dose: 1 tab Aspirin (Aspirin) 81 mg PO DAILY ТАТЬЯНА Stop: 10/10/17 09:01 Last Admin: 07/09/16 08:40 Dose: 81 mg Donepezil HCl (Aricept) 10 mg PO DAILY ТАТЬЯНА Stop: 01/08/17 09:01 Last Admin: 07/09/16 08:40 Dose: 10 mg Sodium Chloride (0.9 % Sodium Chloride) 1,000 mls @ 75 mls/hr IVC .[id number] ТАТЬЯНА Stop: 01/07/17 18:01 Last Admin: 07/09/16 09:06 Dose: 75 mls/hr Metoprolol Tartrate (Lopressor) 25 mg PO BID ТАТЬЯНА Stop: 01/08/17 09:01 Last Admin: 07/09/16 08:40 Dose: 25 mg Naloxone HCl (Narcan) 0.4 mg IVP Q2MIN PRN PRN Reason: Opioid Reversal Stop: 01/07/17 17:57 Nitroglycerin (Nitroglycerin) 0.4 mg SL Q5M PRN PRN Reason: Chest Pain Stop: 01/07/17 18:01 Pharmacy Profile Note (Patient Taking Own Medication) 0 each PO DAILY ТАТЬЯНА Stop: 01/08/17 09:01 Last Admin: 07/09/16 08:41 Dose: Not Given Sertraline HCl (Zoloft) 100 mg PO DAILY [facility] Stop: 01/08/17 09:01 Last Admin: 07/09/16 08:40 Dose: 100 mg Simvastatin (Zocor) 20 mg PO HS ТАТЬЯНА PRN Reason: Protocol Stop: 01/07/17 21:01 Last Admin: 07/08/16 21:02 Dose: 20 mg Vitamin D (Vitamin D) 1,000 unit PO DAILY ТАТЬЯНА Stop: 01/08/17 09:01 Last Admin: 07/09/16 08:40 Dose: 1,000 unit - Imaging and Cardiology Chest Xray: report reviewed Stress Test: report reviewed Echo: pending - EKG Interpretation EKG results cardiology: personally reviewed, other (24 hour tele AVG HR 71, SR, PVCs, no significant pauses) Consult Discharge Plan - Plan Referrals: Marlena Babcock MD [Primary Care Provider] -
--- NOTE | 2016-07-09 13:30 | ECHO - Doppler Report ---
Echocardiogram Name: Feliciano Escalona Date of Study: 07/09/2016 Date: 1935 Ht: 74.0 in Medical Record#: [id number] Age: 80 Wt: 210.0 lb Gender: Male BSA: 2.22 Order #: [id number] Location: [facility] Room #: [facility] Reading Physician: Saad Gudino DO, FAISAL, BEBE BLANCA Water Resource Consultant: Andrea Borja RN Ordering Physician: Faith Nick CNP Primary Physician: Marlena Babcock MD Indications: Syncope Impressions: LVEF 50-55%. Normal LV chamber size, wall thickness and low normal function. Mild left ventricular diastolic dysfunction. Atypical septal motion of unclear etiology. Normal right ventricular structure and function. Mild tricuspid regurgitation. Mild pulmonary hypertension. Estimated RVSP is 42 mmHg. Left Ventricular Wall Motion: Rest Echo Findings All wall segments showed normal motion. Findings: Study Quality * Technically adequate exam. ECG Findings * Normal sinus rhythm. Left Ventricle * LVEF 50-55%. * Normal LV chamber size, wall thickness and low normal function. * Mild left ventricular diastolic dysfunction. * Atypical septal motion of unclear etiology. Right Ventricle * Normal right ventricular structure and function. Left Atrium * Not well visualized. Right Atrium * Not well visualized. Interatrial Septum * Interatrial septum not well evaluated. Aortic Valve * Trileaflet aortic valve with normal function. * No aortic stenosis. * Trace aortic regurgitation. Mitral Valve * Normal mitral valve structure and function. * No mitral stenosis. * No mitral regurgitation. Tricuspid Valve * Normal tricuspid valve structure. * Mild tricuspid regurgitation. * Mild pulmonary hypertension. * Estimated RVSP is 42 mmHg. * Estimated RA pressure is 5 mmHg. Pulmonic Valve * Pulmonic valve not well visualized. * Trace pulmonic regurgitation. Aorta * Normally sized aortic root. Pericardium * The pericardium appears normal. IVC * The IVC is not well evaluated. Pulmonary Artery * Pulmonary artery not well visualized. History Hypertension Family History of CAD 03/29/2015 a Previous Echo was performed. Measurements: BP: 126/ 72 2D Normal Values IVSd: 1.30 cm 0.6 - 1.0 cm LVIDd: 4.00 cm 3.7 - 5.6 cm LVPWd: 1.30 cm 0.6 - 1.1 cm LVIDs: 2.80 cm 1.5 - 3.6 cm LA: 3.20 cm 2.0 - 4.0cm %FS: 30.00 cm >25 % LVOT Diam: 2.00 cm LA volume: Mitral Valve Peak E:.64 m/sec Peak A:.77 m/sec E/A Ratio:0.8 Peak E' Lat Jonathan:8.77 cm/s Peak E' Med Jonathan:6.43 cm/s E/E' Lat Ratio:7.3 E/E' Med Ratio:9.9 Aortic Valve AI pressure Half-time: 564.00 msec Tricuspid Valve TV Regurg Peak Grad: 37.00mmHg TV Regurg Peak Jonathan: 3.06m/sec Updated by Saad Gudino DO, FACChace, BEBE BLANCA on 07/09/2016 1:25:23 PM electronically signed on 07/09/2016 1:25:50 PM with status of Final Wall Motion Jhaveri: 1=Normal, 2=Hypokinesis, 3=Akinesis, 4=Dyskinesis, 5=Aneurysmal, 6=Hyperkinetic, X=Not Visualized (Blank)=Missing
--- NOTE | 2016-07-09 16:03 | Internal Med Progress Note ---
Date of Encounter: 07/09/16 Time of Encounter: 10:20 - Assessment and plan (1) Syncope Current Visit: Yes Status: Acute Assessment and plan: Likely vasovagal 2D echo report noted Imdur discontinued cardiology consultation appreciated awaiting carotid dopplers no recurrent episodes reported will continue to monitor Qualifiers: Syncope type: unspecified Qualified Code(s): R55 - Syncope and collapse (2) Hypotension Current Visit: No Status: Acute Assessment and plan: resolved at this time discontinued home dose of Imdur restarted home medications with parameters continue to closely monitor Qualifiers: Hypotension type: hypotension due to drug Qualified Code(s): I95.2 - Hypotension due to drugs (3) Lumbar transverse process fracture Current Visit: Yes Status: Chronic Assessment and plan: continue home pain medications Qualifiers: Encounter type: initial encounter Fracture type: closed Qualified Code(s) : S32.008A - Other fracture of unspecified lumbar vertebra, initial encounter for closed fracture (4) CAD (coronary artery disease) Current Visit: Yes Status: Chronic Assessment and plan: no signs of angina present at this time cardiology input appreciated continue home medications at this time Qualifiers: Coronary Disease-Associated Artery/Lesion type: [place] artery [place] vs. 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 Resting in bed with present at bedside. Reports of having decreased BP readings since initiation of Imdur. No prior episodes of syncope reported. Denies any headache, lightheadedness, chest pain, palpatations, sob at this time. Patient to undergo cardiac work, if negative, likely d/c in am. - Constitutional Vitals: Temp Pulse Resp BP Pulse Ox 98.9 F 71 18 144/81 97 07/09/16 14:30 07/09/16 14:30 07/09/16 14:30 07/09/16 14:30 07/09/16 14:30 General appearance: Present: A&O X 3, no acute distress - Head Head exam: Present: atraumatic, normocephalic - Eye Eye exam: Present: conjuntiva pink, sclera anicteric - Respiratory Respiratory exam: Present: CTAB. Absent: accessory muscle use, rales, rhonchi, wheezes - Cardiovascular Cardiovascular exam: Present: RRR, +S1, +S2. Absent: diastolic murmur, gallop, rubs, systolic murmur - GI/Abdominal GI/Abdominal exam: Present: normal bowel sounds, soft, no peritoneal signs. Absent: distended, tenderness - Extremities Exam Extremities exam: Present: warm, radial pulses palpable and symetrical. Absent : calf tenderness, cyanotic, pedal edema - Neurological Exam Neurological exam: Present: alert, oriented X3 - Psychiatric Psychiatric exam: Present: normal affect, normal mood Internal Medicine: Result - Labs CBC & Chem 7: 07/09/16 05:34 07/09/16 00:55 Labs: Short CBC 07/09/16 07/09/16 Range/Units 00:55 05:34 WBC 9.7 (4.3-11.1) K/mcL Hgb 9.7 L D 10.0 L (12.9-16.9) g/dL Hct 29.3 L 30.2 L (37.5-50.1) % Plt Count 177 (140-400) K/mcL Neutrophils # 7.6 (1.6-8.9) K/mcL BMP 07/09/16 00:55 Sodium 136 Potassium 4.0 Chloride 108 Carbon Dioxide 21 BUN 14 Creatinine 1.15 Glucose 81 Calcium 7.9 L Cardiac Enzymes 07/08/16 07/09/16 Range/Units 18:43 00:55 Troponin I 0.00 0.00 (0-0.03) ng/mL - ABG Interpretation ABG results: PT/INR, D-dimer PT 13.6 Seconds (9.4-12.1) H 07/08/16 12:00 - VTE Documentation of Mechanical Device: Graduated compression elastic hosiery Consult Discharge Plan - Plan Referrals: Marlena Babcock MD [Primary Care Provider] -
--- NOTE | 2016-07-09 17:47 | Electrocardiograph Report ---
[place] [id number] Test Date: 2016-07-08 Pat Name: Feliciano Escalona Department: 103 Room: 3A11 Gender: M [employer]: : 1935 Requested By: oDnis Robb Order Number: [id number] Reading MD: Boo De Santiago Measurements Intervals [place] Rate: 62 P: 61 IN: 174 QRS: 14 QRSD: 105 T: 38 QT: 390 QTc: 396 Interpretive Statements SINUS RHYTHM WITH OCCASIONAL VENTRICULAR PREMATURE COMPLEXES Electronically Signed On 07-09-2016 17:46:18 EDT by Boo De Santiago
[2016-07-10] MEDS: 0.9 % Sodium Chloride 1,000 ML IVC SCH (02:46)
[2016-07-10 05:37] LABS: Basophils # 0.1 K/mcL (0.0-0.2); Basophils % 0.5 %; Eosinophils # 0.2 K/mcL (0.0-0.6); Eosinophils % 1.9 %; Hematocrit 32.6 % (37.5-50.1); Hemoglobin 10.9 g/dL (12.9-16.9); Immature Granulocytes % 1.8 % (0-4); Lymphocytes # 0.9 K/mcL (0.6-4.6); Lymphocytes % 7.9 %; Mean Corpuscular HGB Conc 33.4 g/dL (31.6-35.5); Mean Corpuscular Hemoglobin 31.9 pg (28.0-33.3); Mean Corpuscular Volume 95.3 fL (83.0-100.0); Monocytes % 8.8 %; Neutrophils # 8.8 K/mcL (1.6-8.9); Platelet Count 167 K/mcL (140-400); Red Blood Count 3.42 M/mcL (4.19-5.50); Red Cell Distribution Width 14.3 % (11.5-14.5); Segmented Neutrophils % 79.1 %
[2016-07-10 06:01] LABS: BUN/Creatinine Ratio 10 (6-26); Blood Urea Nitrogen 10 mg/dL (8-26); Calcium 8.2 mg/dL (8.6-10.8); Carbon Dioxide 20 mEq/L (19-29); Chloride 105 mEq/L (98-109); Glucose 81 mg/dL (70-99); Magnesium 1.5 mg/dL (1.6-2.6); Osmolality,Calculated 276 (280-300); Phosphorous 1.7 mg/dL (2.3-4.7); Potassium 3.7 mEq/L (3.5-4.5); Sodium 134 mEq/L (136-145); eGFR For African Americans > 60 (> 60); eGFR For Non-African Americans > 60 (> 60)
--- NOTE | 2016-07-10 09:01 | Discharge Summary ---
Date of Encounter: 07/10/16 Time of Encounter: 08:30 - Discharge Diagnosis (1) Syncope Priority: Primary Status: Acute Qualifiers: Syncope type: unspecified Qualified Code(s): R55 - Syncope and collapse (2) Dehydration Priority: Primary Status: Acute (3) Hypotension Priority: Primary Status: Acute Qualifiers: Hypotension type: orthostatic hypotension Qualified Code(s): I95.1 - Orthostatic hypotension (4) Acute kidney injury Priority: Primary Status: Acute (5) Dementia Priority: Secondary Status: Chronic Qualifiers: Dementia type: unspecified type Dementia behavioral disturbance: without behavioral disturbance Qualified Code(s): F03.90 - Unspecified dementia without behavioral disturbance (6) Carotid stenosis Priority: Secondary Status: Chronic Qualifiers: Laterality: left Qualified Code(s): I65.22 - Occlusion and stenosis of left carotid artery (7) Dissecting aneurysm of thoracic aorta, [place]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 (8) Hypertension Priority: Secondary Status: Chronic Qualifiers: Hypertension type: essential hypertension Qualified Code(s): I10 - Essential (primary) hypertension (9) Lumbar transverse process fracture Priority: Secondary Status: Chronic Qualifiers: Encounter type: initial encounter Fracture type: closed Qualified Code(s) : S32.008A - Other fracture of unspecified lumbar vertebra, initial encounter for closed fracture (10) Rheumatoid arthritis Priority: Secondary Status: Chronic Qualifiers: Rheumatoid arthritis location: unspecified site Rheumatoid factor presence : unspecified presence Qualified Code(s): M06.9 - Rheumatoid arthritis, unspecified - Discharge Medications Prescriptions: Cane - Quad [QUAD CANE] 1 each .ROUTE AD #1 each Lisinopril [Zestril] 2.5 mg PO HS #30 tablet Walker W Wheels [WHEELED WALKER] 1 each .ROUTE AD #1 each Home Medications: Alendronate Sodium [Fosamax] 70 mg PO QWEEK 04/09/15 [History] Aspirin 81 mg PO DAILY 04/09/15 [History] Donepezil [Aricept] 10 mg PO DAILY 04/09/15 [History] Methotrexate 0.8 ml SQ QWEEK 04/09/15 [History] Metoprolol [Lopressor] 25 mg PO BID 04/09/15 [History] Sertraline [Zoloft] 100 mg PO DAILY 04/09/15 [History] Cholecalciferol (D-3) [Vitamin D] 1,000 unit PO DAILY 07/08/16 [History] Nitroglycerin [Nitrostat] 0.4 mg SL Q5M PRN 07/08/16 [History] [place]-3/Dha/Epa/Fish Oil [Fish Oil 1,000 mg Softgel] 1,000 mg PO DAILY 07/08/16 [History] Simvastatin [Zocor] 20 mg PO HS 07/08/16 [History] riTUXimab [Rituxan] 100 mg IV [id number] 07/08/16 [History] Cane - Quad [QUAD CANE] 1 each .ROUTE AD #1 each 07/10/16 [Rx] Lisinopril [Zestril] 2.5 mg PO HS #30 tablet 07/10/16 [Rx] Walker W Wheels [WHEELED WALKER] 1 each .ROUTE AD #1 each 07/10/16 [Rx] Allergies/Adverse Reactions: Allergies No Known Allergies Allergy (Verified 04/09/15 02:11) Procedures/tests Complete & Pending: Procedures Performed prior 72 hours Category Date Time Status ECG 12 lead ECG [ECG] AM 0600 Y 07/09/16 06:00 Ordered EV carotid duplex imaging BI Routine Y 07/10/16 11:50 Completed EV echocardiogram Routine Y 07/09/16 20:05 Completed Date of admission: 07/08/16 15:46 Primary care physician: Marlena Babcock MD Consults: 07/08/16 17:59 Consult to Physical Therapy [CONS] Routine Comment: Evaluate, develop and implement POC 07/08/16 20:05 Consult to Cardiology [CONS] Routine Comment: Consulting Provider: Cardiology Keila Reason for Consult: syncope Time Notified: 20:05 Call Completed: No - Patient Status Disposition: Home Health Service Condition: Good Functional capacity at discharge: uses cane/walker Overall status at discharge: patient is back to baseline - Discharge Instructions Instructions: Syncope (DC), Hypotension (DC) Follow Up With: Marlena Babcock MD [Primary Care Provider] - 07/16/16 10:20 am (f/u in 1 week) Additional Instructions: CHECK YOUR BLOOD PRESSURE AT LEAST TWICE DAILY (SAME TIME EVERY DAY), MAKE A LOG AND BRING NUMBERS TO DOCTOR APPOINTMENT. USE ALWAYS YOUR WALKER FOLLOW UP WITH DOCTOR AT [facility] FOR AORTIC ANEURYSM DRINK FLUIDS AT HOME, AT LEAST 2 LITERS A DAY - Diet and Activity Activity: ambulate only with your walker Diet: low fat, low cholesterol, low salt diet Interval History: Patient denies any chest pain, shortness of breath, or dizziness. He is ambulating to the bathroom without any issues. He is eating well. Hospital course: Mr. Escalona is a 80 year old male with past medical history of CAD, CVA, hypertension and hyperlipidemia who presented after a syncopal episode. He was admitted with diagnoses of hypotension secondary to dehydration and was started with IV fluids. His home dose of oral Imdur was stopped and his lisinopril was decreased to 2.5 mg as needed for systolic blood pressure above 130. Patient had no more syncopal episodes during this hospitalization. Doppler of carotid was unremarkable. Echocardiogram revealed LVEF 50%, mild diastolic dysfunction. Chest CTA shows a stable dissecting aneurysm of the thoracic aorta. PLAN: Patient instructed to drink plenty of fluids. Check blood pressure at least twice daily. Follow-up at [facility] for aortic aneurysm as scheduled. - Time Spent with Patient Total time spent providing and/or coordinating discharge services: - Constitutional Vitals: Temp Pulse Resp BP Pulse Ox 97.6 F 67 16 139/74 94 07/10/16 06:47 07/10/16 06:47 07/10/16 06:47 07/10/16 06:47 07/10/16 06:47 General appearance: Present: cooperative, A&O X 3, pleasant, no acute distress, answers questions appropriately - Eye Eye exam: Present: PERRL, sclera anicteric - Neck Neck exam general surgery: Present: supple, trachea midline. Absent: lymphadenopathy - Respiratory Respiratory exam: Present: CTAB - Cardiovascular Cardiovascular exam: Present: RRR - GI/Abdominal GI/Abdominal exam: Present: normal bowel sounds, soft. Absent: distended, tenderness - Extremities Exam Extremities exam: Absent: pedal edema - Back Exam Back exam: Absent: CVA tenderness (L), CVA tenderness (R) - Neurological Exam Neurological exam: Present: alert, oriented X3, no focal deficits, strengths equal and symetr throughout. Absent: facial droop, speech deficit - Skin Skin exam: Absent: rash - VTE Documentation of Mechanical Device: Graduated compression elastic hosiery
[2016-07-10] MEDS ORDERED: Magnesium Oxide 400 MG TABLET PO STA (09:10)
[2016-07-10] MEDS: Aspirin 81 MG TAB.CHEW PO SCH (09:13)
[2016-07-10] MEDS: Cholecalciferol (D-3) 1,000 UNIT TABLET PO SCH (09:13)
--- NOTE | 2016-07-10 09:16 | Physician Discharge Referral ---
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 For more information, call the [place] Tobacco Quit Line at 5-171-[facility]-NOW. - Diet/Nutrition Diet/Nutrition Orders: No Added Salt (REBECCA), Cardiac - Activity Activity Orders: Walker - Services Needed Following services are medically necessary services: Physical Therapy, Occupational Therapy - Transfer Medications Prescriptions: Lisinopril [Zestril] 2.5 mg PO HS #30 tablet Home Medications: Alendronate Sodium [Fosamax] 70 mg PO QWEEK 04/09/15 [History] Aspirin 81 mg PO DAILY 04/09/15 [History] Donepezil [Aricept] 10 mg PO DAILY 04/09/15 [History] Methotrexate 0.8 ml SQ QWEEK 04/09/15 [History] Metoprolol [Lopressor] 25 mg PO BID 04/09/15 [History] Sertraline [Zoloft] 100 mg PO DAILY 04/09/15 [History] Cholecalciferol (D-3) [Vitamin D] 1,000 unit PO DAILY 07/08/16 [History] Nitroglycerin [Nitrostat] 0.4 mg SL Q5M PRN 07/08/16 [History] [place]-3/Dha/Epa/Fish Oil [Fish Oil 1,000 mg Softgel] 1,000 mg PO DAILY 07/08/16 [History] Simvastatin [Zocor] 20 mg PO HS 07/08/16 [History] riTUXimab [Rituxan] 100 mg IV [id number] 07/08/16 [History] Lisinopril [Zestril] 2.5 mg PO HS #30 tablet 07/10/16 [Rx] Allergies/Adverse Reactions: Allergies No Known Allergies Allergy (Verified 04/09/15 02:11) Certification: Further, I certify that my clinical findings support that this patient is homebound (i.e. absences from home require considerable and taxing effort and are for medical reasons or orthodox services or infrequently or short duration when for other reasons) because: Homebound Reason: Patient requires assistance of a person or device to safely leave home Attestation: My signature below is to certify that this patient is under my care and that I, or nurse practitioner, or a physician's assistant executive housekeeper working with me, has a face-to -face encounter with this patient.
[2016-07-10 11:23] VITALS: BP 139/74
--- NOTE | 2016-07-10 18:08 | Carotid Imaging Report ---
Carotid Duplex Patient Name:Feliciano Escalona Order Number:[id number] Procedure Date:07/10/2016 Date:1935ge:80 yrs Gender:Male Lt BP:139 / 84 mmHg Rt.BP:131 / 82 mmHgHeart Rate: Location:[facility] Room #: 3A11 Change Person:Andrea Borja RN Referring MD:Brad Tai CNP mechanical manufacturing technician:Marlena Babcock MD Reading MD:Iker Leal MD Primary Indications:Syncope Risk Factors Yes/No Hypertension Yes Diabetes No Hypercholesterolemia Yes Smoker Previous No Hx of TIA No Hx of CVA No Anticoagulants No Hx of CAD/PTCA Yes Previous Vascular Surgery No Impressions: The bilateral carotid arteries have minimal plaque throughout. Recommendations: Test completed on 07/10/2016 at 7:45:00 am. Findings Carotid Duplex: Right: The right proximal common carotid artery has a PSV of 71 cm/s and a EDV of 9 cm/s. There is nonstenotic plaque in the right mid common carotid artery with a PSV of 52 cm/s and a EDV of 8 cm/s. There is smooth homogeneous plaque. There is nonstenotic plaque in the right distal common carotid artery with a PSV of 39 cm/s and a EDV of 11 cm/s. There is smooth homogeneous plaque. There is nonstenotic plaque in the right bifurcation with a PSV of 38 cm/s and a EDV of 10 cm/s. There is smooth homogeneous plaque. The right proximal internal carotid artery has a PSV of 58 cm/s and a EDV of 16 cm/s. The right mid internal carotid artery has a PSV of 71 cm/s and a EDV of 21 cm/s. The right distal internal carotid artery has a PSV of 79 cm/s and a EDV of 22 cm/s. The right eca has a PSV of 106 cm/s and a EDV of 13 cm/s. The right vertebral artery has a PSV of 64 cm/s and a EDV of 15 cm/s. Left: The left proximal common carotid artery has a PSV of 75 cm/s and a EDV of 11 cm/s. There is nonstenotic plaque in the left mid common carotid artery with a PSV of 50 cm/s and a EDV of 9 cm/s. There is smooth homogeneous plaque. There is nonstenotic plaque in the left distal common carotid artery with a PSV of 60 cm/s and a EDV of 10 cm/s. There is smooth homogeneous plaque. There is nonstenotic plaque in the left bifurcation with a PSV of 52 cm/s and a EDV of 10 cm/s. There is smooth homogeneous plaque. The left proximal internal carotid artery has a PSV of 44 cm/s and a EDV of 11 cm/s. The left mid internal carotid artery has a PSV of 93 cm/s and a EDV of 27 cm/s. The left distal internal carotid artery has a PSV of 102 cm/s and a EDV of 34 cm/s. The left eca has a PSV of 103 cm/s and a EDV of 9 cm/s. The left vertebral artery has a PSV of 47 cm/s and a EDV of 11 cm/s. Prior Study: Changes noted compared to prior study dated: 03/30/2015. Carotid Results Right PSV EDV Assessment Proximal CCA 71 9 Normal Mid CCA 52 8 Non Stenotic Plaque Distal CCA 39 11 Non Stenotic Plaque Bifurcation 38 10 Non Stenotic Plaque Proximal ICA 58 16 Normal Mid ICA 71 21 Normal Distal ICA 79 22 Normal ECA 106 13 Normal Vertebral Artery 64 15 Normal Left PSV EDV Assessment Proximal CCA 75 11 Normal Mid CCA 50 9 Non Stenotic Plaque Distal CCA 60 10 Non Stenotic Plaque Bifurcation 52 10 Non Stenotic Plaque Proximal ICA 44 11 Normal Mid ICA 93 27 Normal Distal ICA 102 34 Normal ECA 103 9 Normal Vertebral Artery 47 11 Normal Ratio's Right ICA/CCA Ratio: 1.52 ICA/CCA Values: 79/52 Left ICA/CCA Ratio: 2.04 ICA/CCA Values: 102/50 Updated by Iker Leal MD on 07/10/2016 6:02:25 PM electronically signed on 07/10/2016 6:02:46 PM with status of Final
== END 2016-07-10 13:19 | disposition home health service (06) ==
LOC: EMEROO 11:50 → 3NENU 11:50 → SUATTDRO 15:46 → 3NENU 16:35 → 3ANU 07-09 15:25
PROVIDERS: ADMIT Nurse Practitioner Acute Care; ATTEND Internal Medicine

== ENCOUNTER 2018-10-08 15:26 | Inpatient (IN) ==
[2018-10-08] MEDS ORDERED: 0.9 % Sodium Chloride 1,000 ML IVC ONE (15:38)
--- NOTE | 2018-10-08 15:58 | Emergency Department Note ---
Disposition Clinical Impression: Generalized weakness Sepsis Qualifiers: Sepsis type: sepsis due to unspecified organism Qualified Code(s): A41.9 - Sepsis, unspecified organism Disposition: Admitted As Inpatient Condition: Fair Referrals: Brayden Quinonez MD [Primary Care Provider] - Time of Disposition: 15:58 General Adult HPI - General Chief complaint: ED Weakness Stated complaint: Weakness Time Seen by Provider: 10/08/18 15:37 Source: patient Mode of arrival: wheelchair Limitations: altered mental status Nursing Notes Reviewed: Yes Vital Signs Reviewed: Yes - History of Present Illness HPI Narrative: Attestation note: Patient was seen with the emergency medicine resident/nurse practitioner/physician endodontic assistant/transitional resident/medical student: Dr. WILMA BIRD. I was present for the significant portions of the performance and interpretation of procedures and EKGs. I have personally performed a face to face evaluation on this patient. I have reviewed and agree with history and physical examination patient management and disposition. BRIEFLY: A 2-year-old male brought in by for profound weakness normal exam of torsion getting out of the car adhesive diaper because he so weak to get around had fever up to 100.9. Patient is just kind of fatigued but not somnolent undergo sepsis workup. Patient will be admitted. Provided 45 minutes critical care service this patient. Disposition pending Pain Scale: 0 - Related Data Home Medications Medication Instructions Recorded Confirmed Aspirin 81 mg PO DAILY 04/09/15 05/27/18 Donepezil [Aricept] 10 mg PO HS 04/09/15 05/27/18 Methotrexate 0.5 mg SQ QWEEK 04/09/15 05/27/18 Sertraline [Zoloft] 100 mg PO DAILY 04/09/15 05/27/18 Cholecalciferol (D-3) [Vitamin D] 1,000 unit PO DAILY 07/08/16 05/27/18 Simvastatin [Zocor] 20 mg PO HS 07/08/16 05/27/18 riTUXimab [Rituxan] 100 mg IV [id number] 07/08/16 05/27/18 Cyanocobalamin (Vitamin B-12) 1,000 mcg PO DAILY 05/27/18 05/27/18 [Vitamin B12] Denosumab [Prolia (For Outpatient 60 mg SQ 05/27/18 Infusion)] Folic Acid 0.8 mg PO DAILY 05/27/18 05/27/18 Previous Rx's Medication Instructions Recorded Metoprolol [Lopressor] 12.5 mg PO BID #30 tablet 06/01/18 Allergies Allergy/AdvReac Type Severity Reaction Status Date / Time No Known Allergies Allergy Verified 09/20/17 15:00 Past Medical History - Past Medical History Medical history: Reports: atrial fibrillation, coronary artery disease, dementia, hyperlipidemia, hypertension, RA Surgical history: Reports: non-contributory Psychiatric history: Reports: depression - Social History Smoking Status: Never smoker Smokeless Tobacco Status: No Alcohol use: Reports: rarely Drug use: Reports: none Physical Exam - General Limitations: altered mental status General appearance: alert Course Vital Signs Temperature 100.9 F H 10/08/18 15:33 Pulse Rate 101 10/08/18 15:33 Respiratory Rate 24 10/08/18 15:33 Blood Pressure 94/77 10/08/18 15:33 O2 Sat by Pulse Oximetry 99 10/08/18 15:33 Temperature 100.9 F H 10/08/18 15:33 Pulse Rate 101 10/08/18 15:33 Respiratory Rate 24 10/08/18 15:33 Blood Pressure 94/77 10/08/18 15:33 O2 Sat by Pulse Oximetry 99 10/08/18 15:33 Oxygen Delivery Oxygen Delivery Room Air
[2018-10-08 16:13] LABS: Basophils % 0.3 %
[2018-10-08 16:15] LABS: Eosinophils % 5.4 %; Immature Granulocytes % 3.6 % (0-4); Immature Platelets 9.5 % (1.1-6.1); Lymphocytes % 7.2 %; Monocytes % 5.1 %; Red Cell Distribution Width 16.6 % (11.5-14.5); Segmented Neutrophils % 78.4 %
[2018-10-08 16:18] LABS: Eosinophils # 0.2 K/mcL (0.0-0.6); Hematocrit 30.3 % (37.5-50.1); Lymphocytes # 0.3 K/mcL (0.6-4.6); Mean Corpuscular Volume 105.9 fL (83.0-100.0); Monocytes # 0.2 K/mcL (0.0-1.3); Neutrophils # 2.7 K/mcL (1.6-8.9); Red Blood Count 2.86 M/mcL (4.19-5.50); White Blood Count 3.5 K/mcL (4.3-11.1)
[2018-10-08 16:24] LABS: INR 1.3; Prothrombin Time 14.9 Seconds (9.4-12.1)
[2018-10-08] MEDS ORDERED: Acetaminophen 325 MG TABLET PO ONE (16:29)
[2018-10-08 16:33] LABS: BUN/Creatinine Ratio 16 (6-26); Blood Urea Nitrogen 22 mg/dL (8-23); Carbon Dioxide 24 mEq/L (23-29); Chloride 106 mEq/L (98-107); Glucose 108 mg/dL (70-105); Osmolality,Calculated 286 (280-300); Potassium 3.8 mEq/L (3.5-5.1); Sodium 136 mEq/L (136-145); Troponin I < 0.03 ng/mL (< 0.04); eGFR For African Americans > 60 (> 60); eGFR For Non-African Americans 51 (> 60)
[2018-10-08 16:36] LABS: Platelet Count 82 K/mcL (140-400)
--- NOTE | 2018-10-08 16:36 | Emergency Department Note ---
Disposition Clinical Impression: Generalized weakness, Thrombocytopenia Sepsis Qualifiers: Sepsis type: sepsis due to unspecified organism Qualified Code(s): A41.9 - Se psis, unspecified organism Right middle lobe pneumonia Qualifiers: Pneumonia type: due to unspecified organism Qualified Code(s): J18.1 - Lobar pneumonia, unspecified organism Disposition: Admitted As Inpatient Condition: Fair Referrals: Brayden Quinonez MD [Primary Care Provider] - Forms: ED Satisfaction Letter Time of Disposition: 17:14 General Adult HPI - General Chief complaint: ED Weakness Stated complaint: Weakness Time Seen by Provider: 10/08/18 15:37 Source: patient Mode of arrival: wheelchair Limitations: altered mental status Nursing Notes Reviewed: Yes Vital Signs Reviewed: Yes - History of Present Illness HPI Narrative: Patient is an 82-year-old male with a past medical history including atrial fibrillation not on anticoagulation or antiplatelet therapy, coronary artery disease, hypertension, dementia, presenting with his with a chief complaint of generalized weakness. states as of lately, his heart rate has been running around 100 and his blood pressures have been low. She states systolic is 90-100. She has followed up with his food photographer, Dr. Mancia, about this. She states for the past week she notes increasing generalized weakness. She is having a difficult time ambulating the patient from room to room. She is put on diapers she has a difficult time getting him to the bathroom. He is not incontinent she states. She denies any fevers, cough, chest pain, abdominal pain, nausea or vomiting, diarrhea, blood in his stool. She states she just appears to be generally weak. He had an appointment today for his rheumatoid arthritis in [place]. When they got home, she had a difficult time getting him out of the car so she called EMS to bring him here for further evaluation. On arrival, he is febrile. When asking the patient if he is in any pain, he denies any pain. He denies any acute complaints and states he feels fine. Notes a history of melanoma, no chemotherapy or cancer. Full Code Pain Scale: 0 - Related Data Home Medications Medication Instructions Recorded Confirmed Aspirin 81 mg PO DAILY 04/09/15 05/27/18 Donepezil [Aricept] 10 mg PO HS 04/09/15 05/27/18 Methotrexate 0.5 mg SQ QWEEK 04/09/15 05/27/18 Sertraline [Zoloft] 100 mg PO DAILY 04/09/15 05/27/18 Cholecalciferol (D-3) [Vitamin D] 1,000 unit PO DAILY 07/08/16 05/27/18 Simvastatin [Zocor] 20 mg PO HS 07/08/16 05/27/18 riTUXimab [Rituxan] 100 mg IV [id number] 07/08/16 05/27/18 Cyanocobalamin (Vitamin B-12) 1,000 mcg PO DAILY 05/27/18 05/27/18 [Vitamin B12] Denosumab [Prolia (For Outpatient 60 mg SQ 05/27/18 Infusion)] Folic Acid 0.8 mg PO DAILY 05/27/18 05/27/18 Previous Rx's Medication Instructions Recorded Metoprolol [Lopressor] 12.5 mg PO BID #30 tablet 06/01/18 Allergies Allergy/AdvReac Type Severity Reaction Status Date / Time No Known Allergies Allergy Verified 09/20/17 15:00 All systems ED: reviewed and negative except as stated. Review of Systems: As Per HPI Constitutional: Reports: weakness. Denies: fever, chills Eyes: Denies: vision change ENT ED: Denies: congestion Cardiovascular: Denies: chest pain, palpitations Respiratory: Denies: cough, dyspnea Gastrointestinal: Denies: abdominal pain, nausea, vomiting, diarrhea Genitourinary: Denies: dysuria, hematuria Neurological: Denies: weakness, numbness Past Medical History - Past Medical History Attestation: Yes The following information was validated with the patient. Source: patient Medical history: Reports: atrial fibrillation, coronary artery disease, dementia, hyperlipidemia, hypertension, RA Surgical history: Reports: non-contributory Psychiatric history: Reports: depression - Social History Smoking Status: Never smoker Smokeless Tobacco Status: No Alcohol use: Reports: rarely Drug use: Reports: none Physical Exam - General Limitations: altered mental status General appearance: alert, in no apparent distress - Head Head exam: atraumatic, normocephalic - Eye Eye exam: Present: normal appearance, PERRL, EOMI. Absent: nystagmus - ENT ENT exam: normal exam, mucous membranes dry, other (oreo crumbs around mouth) - Neck Neck exam: Present: normal inspection, trachea midline - Chest Chest inspection: Present: normal inspection, symmetric chest wall rise - Respiratory Respiratory exam: Present: normal lung sounds bilaterally. Absent: respiratory distress, wheezes - Cardiovascular Cardiovascular exam: Present: tachycardia, irregular rhythm, other (bialteral radial pulses equal) - Abdominal Exam Abdominal exam: Present: soft, Non-Tender. Absent: distention - Extremities Exam Extremities exam: Present: full ROM, normal capillary refill. Absent: pedal edema, calf tenderness - Neurological Exam Neurological exam: Present: alert, CN II-XII intact, other (Oriented to person and place but not time, states this is his baseline as he has dementia.). Absent: motor sensory deficit - Expanded Neurological Exam Speech: Present: fluid speech Cerebellar function: finger to nose: Normal Motor strength - LUE: 5/5 Motor strength - RUE: 5/5 Motor strength - LLE: 5/5 Motor strength - RLE: 5/5 Upper motor neuron exam: iain neglect: Absent bilaterally Sensory exam upper extremity: light touch: Normal Sensory exam lower extremity: light touch: Normal - Psychiatric Psychiatric exam: Present: normal affect, normal mood - Skin Skin exam: Present: warm, dry. Absent: diaphoresis, pallor Course Vital Signs Temperature 100.9 F H 10/08/18 15:33 Pulse Rate 101 10/08/18 15:33 Respiratory Rate 24 10/08/18 15:33 Blood Pressure 94/77 10/08/18 15:33 O2 Sat by Pulse Oximetry 99 10/08/18 15:33 Temperature 100.9 F H 10/08/18 15:33 Pulse Rate 100 10/08/18 17:07 Respiratory Rate 24 10/08/18 17:07 Blood Pressure 106/56 10/08/18 17:07 O2 Sat by Pulse Oximetry 97 10/08/18 17:07 Oxygen Delivery Oxygen Delivery Room Air Medical Decision Making - [facility] Narrative Medical decision making narrative: Patient is presenting with generalized weakness and is febrile. This has been progressively worsening for the past week. He has a nonfocal neurologic examination. He is alert and oriented to person and place but not time. states this is his baseline. He has dementia and is on donepezil. also states that his heart rate and blood pressure is his baseline. He is in atrial fibrillation with heart rate in the 90s to 100s. We will give him 1 L IV fluid bolus and reevaluate. Do not want to give the 30 mL/kg for sepsis as patient has cardiac dysrhythmia and concerned about fluid overload and CHF. We will obtain CBC, BMP, troponin, EKG, urinalysis, chest x-ray, CT head. Tylenol for fever 16:50 Patient has sepsis secondary to right middle lobe pneumonia. We will start Rocephin and azithromycin for community-acquired pneumonia. CT head shows no acute intracranial abnormality and he has chronic changes. Lactate is normal. We will obtain procalcitonin. He remains stable and has no acute complaints, Blood pressure 105 systolic. 17:[address] Braden, hospitalist, who accepts admission. - Medical Records Medical records reviewed: Yes I reviewed the patient's medical records. - Lab Data Lab results reviewed: Yes I reviewed the patient's lab results. Result diagrams: 10/08/18 15:50 10/08/18 15:50 Lab Results 10/08/18 10/08/18 10/08/18 Range/Units 15:50 15:50 15:50 WBC 3.5 L (4.3-11.1) K/mcL RBC 2.86 L (4.19-5.50) M/mcL Hgb 10.0 L (12.9-16.9) g/dL Hct 30.3 L (37.5-50.1) % MCV 105.9 H (83.0-100.0) fL MCH 35.0 H (28.0-33.3) pg MCHC 33.0 (31.6-35.5) g/dL RDW 16.6 H (11.5-14.5) % Plt Count 82 L (140-400) K/mcL MPV 13.0 H (9.4-12.4) fL Immature Gran % 3.6 (0-4) % Seg Neutrophils % 78.4 % Lymphocytes % 7.2 % Monocytes % 5.1 % Eosinophils % 5.4 % Basophils % 0.3 % Neutrophils # 2.7 (1.6-8.9) K/mcL Lymphocytes # 0.3 L (0.6-4.6) K/mcL Monocytes # 0.2 (0.0-1.3) K/mcL Eosinophils # 0.2 (0.0-0.6) K/mcL Basophils # 0.0 (0.0-0.2) K/mcL Platelet Estimate Decreased L (Normal) Immature Plt Fraction 9.5 H (1.1-6.1) % PT 14.9 H (9.4-12.1) Seconds INR 1.3 Sodium 136 (136-145) mEq/L Potassium 3.8 (3.5-5.1) mEq/L Chloride 106 (98-107) mEq/L Carbon Dioxide 24 (23-29) mEq/L BUN 22 (8-23) mg/dL Creatinine 1.34 H (0.70-1.30) mg/dL Est GFR ( Amer) > 60 (> 60) Est GFR (Non-Af Amer) 51 L (> 60) BUN/Creatinine Ratio 16 (6-26) Glucose 108 H (70-105) mg/dL Calculated Osmolality 286 (280-300) Lactic Acid (0.5-2.2) mmol/L Calcium 8.0 L (8.6-10.3) mg/dL Troponin I < 0.03 (< 0.04) ng/mL Blood Type Antibody Screen 10/08/18 10/08/18 Range/Units 15:50 15:50 WBC (4.3-11.1) K/mcL RBC (4.19-5.50) M/mcL Hgb (12.9-16.9) g/dL Hct (37.5-50.1) % MCV (83.0-100.0) fL MCH (28.0-33.3) pg MCHC (31.6-35.5) g/dL RDW (11.5-14.5) % Plt Count (140-400) K/mcL MPV (9.4-12.4) fL Immature Gran % (0-4) % Seg Neutrophils % % Lymphocytes % % Monocytes % % Eosinophils % % Basophils % % Neutrophils # (1.6-8.9) K/mcL Lymphocytes # (0.6-4.6) K/mcL Monocytes # (0.0-1.3) K/mcL Eosinophils # (0.0-0.6) K/mcL Basophils # (0.0-0.2) K/mcL Platelet Estimate (Normal) Immature Plt Fraction (1.1-6.1) % PT (9.4-12.1) Seconds INR Sodium (136-145) mEq/L Potassium (3.5-5.1) mEq/L Chloride (98-107) mEq/L Carbon Dioxide (23-29) mEq/L BUN (8-23) mg/dL Creatinine (0.70-1.30) mg/dL Est GFR ( Amer) (> 60) Est GFR (Non-Af Amer) (> 60) BUN/Creatinine Ratio (6-26) Glucose (70-105) mg/dL Calculated Osmolality (280-300) Lactic Acid 1.4 (0.5-2.2) mmol/L Calcium (8.6-10.3) mg/dL Troponin I (< 0.04) ng/mL Blood Type O POSITIVE Antibody Screen NEGATIVE - Radiology Data Radiology results reviewed: Yes I reviewed the patient's radiology results. Chest X-Ray 10/08/18 15:39 IMPRESSION: Focal increased opacity within the right midlung, concerning for pneumonia. That should be followed to resolution. D/ / Jose Manuel Alanis MD / Jose Manuel Alanis MD Interpreting Provider: Jose Manuel Alanis MD Head CT 10/08/18 15:39 IMPRESSION: 1. No acute intracranial abnormality. 2. [id number] global parenchymal volume loss with chronic microvascular ischemic changes. 3. Scattered sinusitis including air-fluid levels within the maxillary sinuses bilaterally. 4. Bilateral mastoid effusions. D/ / Nate Lopez MD / Nate Lopez MD Interpreting Provider: Nate Lopez MD
[2018-10-08 16:40] LABS: Platelet Estimate Decreased (Normal)
[2018-10-08] MEDS ORDERED: cefTRIAXone 1,000 MG in Water for inj. (sterile) 10 ML IVP ONE (16:56)
[2018-10-08] MEDS ORDERED: Azithromycin 500 MG in D5% in Water 250 ML IVPB ONE (16:56)
[2018-10-08] MEDS ORDERED: Naloxone 0.4 MG/ML INJ IVP PRN (17:28)
[2018-10-08] MEDS ORDERED: Acetaminophen 325 MG TABLET PO PRN (17:29)
[2018-10-08] MEDS ORDERED: traMADol 50 MG TABLET PO PRN (17:29)
--- NOTE | 2018-10-08 17:30 | Internal Med History&Physical ---
Date of Encounter: 10/08/18 Time of Encounter: 17:45 Internal Medicine - H&P: HPI Chief complaint: Generalized weakness, cough Admitted From: Emergency Dept Plans for Post Hospital Care: Home History of present illness: Mr. Escalona is a 82 year old male patient with history of atrial fibrillation, not on anticoagulation due to high risk for falls, coronary artery disease, hypertension, dementia who presented to the ER with complaints of generalized weakness. This has been going on for the past 2-3 weeks. He initially had an episode of cough and shortness of breath and was placed on ciprofloxacin by his primary care provider for 10 days. He finished that course but his symptoms continued and so he came to the ER. Patient apparently had a fall earlier this morning and has been unable to take care of himself at home. He denies any chest pain or palpitations. He reportedly had a brief episode of chest pain couple of weeks back which resolved after he took nitroglycerin. He followed up with cardiology after that and was recommended outpatient stress test. Patient was noted to have fever on arrival to the ER. He has not had any Hematemesis or melena. No other bleeding reported. No nausea or vomiting. Past Med Surg Social Fam HX - Past Medical History Attestation: Yes The following information was validated with the patient. Source: patient Medical history: atrial fibrillation, coronary artery disease, dementia, hyperlipidemia, hypertension, RA Additional medical history: AAA, Skin cancer Psychiatric history: depression - Past Surgical History Surgical History: non-contributory Additional surgical history: Melanoma removal - Social History Smoking Status: Never smoker Smokeless Tobacco Status: No Alcohol use: rarely Drug use: none - Family History Son Living Status: Still Living Hx Family Endocrine Disorder: Yes (dm) Internal Medicine - H&P: Meds Aspirin 81 mg PO DAILY 04/09/15 [History] Donepezil [Aricept] 10 mg PO HS 04/09/15 [History] Methotrexate 0.5 mg SQ QWEEK 04/09/15 [History] Sertraline [Zoloft] 100 mg PO DAILY 04/09/15 [History] Cholecalciferol (D-3) [Vitamin D] 1,000 unit PO DAILY 07/08/16 [History] Simvastatin [Zocor] 20 mg PO HS 07/08/16 [History] riTUXimab [Rituxan] 100 mg IV [id number] 07/08/16 [History] Cyanocobalamin (Vitamin B-12) [Vitamin B12] 1,000 mcg PO DAILY 05/27/18 [History] Denosumab [Prolia (For Outpatient Infusion)] 60 mg SQ 05/27/18 [History] Folic Acid 0.8 mg PO DAILY 05/27/18 [History] Metoprolol [Lopressor] 12.5 mg PO BID #30 tablet 06/01/18 [Rx] Memantine [Namenda] 10 mg PO BID 10/08/18 [History] Trospium Chloride 20 mg PO BID 10/08/18 [History] Allergy/AdvReac Type Severity Reaction Status Date / Time No Known Allergies Allergy Verified 09/20/17 15:00 All Systems PM: A 10-system review of systems was performed and is negative for pertinent findings except as documented above in the HPI. - Constitutional Constitutional: fatigue, fever(s), malaise, weakness, no chills, no night sweats - EENT Eyes: no change in vision, no discharge, no pain, no photophobia Ears: no ear discharge, no ear pain, no tinnitus Nose, mouth and throat: no dysphagia, no nasal discharge, no neck pain, no sore throat - Cardiovascular Cardiovascular ROS IM: no chest pain, no diaphoresis, no dyspnea, no lightheadedness, no palpitations, no syncope - Respiratory Respiratory: cough, dyspnea, no wheezing, no excessive phlegm production - Gastrointestinal Gastrointestinal: no abdominal pain, no diarrhea, no hematemesis, no hematochezia, no melena, no nausea, no vomiting - Musculoskeletal Musculoskeletal ROS IM: no numbness, no tingling - Integumentary Integumentary IM: no rash, no unusual bruising - Neurological Neurological ROS: no confusion, no convulsions, no focal weakness, no numbness, no tingling, no tremor(s) - Hematologic/Lymphatic Hematologic/Lymphatic: no easy bruising - Constitutional Vitals: Temp Pulse Resp BP Pulse Ox 100.9 F H 100 24 106/56 97 10/08/18 15:33 10/08/18 17:07 10/08/18 17:07 10/08/18 17:07 10/08/18 17:07 General appearance: Present: cooperative, A&O X 2, pleasant, answers questions appropriately Exam: General: Patient is alert, no acute distress, oriented x 2 Head: atraumatic, normocephalic, ENT: Mucous membranes dry Eye: normal appearance, PERRL, no scleral icterus, no conjunctival injection Neck: normal inspection, trachea midline, full ROM, no carotid bruits Chest: normal inspection, symmetric chest rise Respiratory: Coarse breath sounds bilaterally. Cardiovascular: Irregularly irregular rhythm. s1 and s2 normal No clicks, rubs, gallops, or murmurs. No pedal edema Abdomen: Abdomen is soft, nontender. Bowel sounds are present Musculoskeletal: Spontaneously moving all extremities Skin: warm, dry, intact. Neuro: Alert oriented x 2 normal cranial nerves, no focal deficits Psych: Patient's affect is normal Internal Med - H&P Results - Labs CBC & Chem 7: 10/08/18 15:50 10/08/18 15:50 Labs: Short CBC 10/08/18 Range/Units 15:50 WBC 3.5 L (4.3-11.1) K/mcL Hgb 10.0 L (12.9-16.9) g/dL Hct 30.3 L (37.5-50.1) % Plt Count 82 L (140-400) K/mcL Neutrophils # 2.7 (1.6-8.9) K/mcL BMP 10/08/18 15:50 Sodium 136 Potassium 3.8 Chloride 106 Carbon Dioxide 24 BUN 22 Creatinine 1.34 H Glucose 108 H Calcium 8.0 L Cardiac Enzymes 10/08/18 Range/Units 15:50 Troponin I < 0.03 (< 0.04) ng/mL - Impressions ITS Impressions Chest X-Ray 10/08/18 15:39 IMPRESSION: Focal increased opacity within the right midlung, concerning for pneumonia. That should be followed to resolution. D/ / Jose Manuel Alanis MD / Jose Manuel Alanis MD Interpreting Provider: Jose Manuel Alanis MD Head CT 10/08/18 15:39 IMPRESSION: 1. No acute intracranial abnormality. 2. [id number] global parenchymal volume loss with chronic microvascular ischemic changes. 3. Scattered sinusitis including air-fluid levels within the maxillary sinuses bilaterally. 4. Bilateral mastoid effusions. D/ / Nate Lopez MD / Nate Lopez MD Interpreting Provider: Nate Lopez MD - Assessment and Plan (1) Right middle lobe pneumonia Current Visit: Yes Status: Suspected Qualifiers: Pneumonia type: due to Pneumococcus Qualified Code(s): J13 - Pneumonia due to Streptococcus pneumoniae (2) Pancytopenia Current Visit: Yes Status: Acute (3) Generalized weakness Current Visit: Yes Status: Acute (4) Sepsis Current Visit: Yes Status: Suspected Qualifiers: Sepsis type: Pneumococcus Qualified Code(s): A40.3 - Sepsis due to Streptococcus pneumoniae (5) CAD (coronary artery disease) Current Visit: Yes Status: Chronic Qualifiers: Coronary Disease-Associated Artery/Lesion type: [place] artery [place] vs. transplanted heart: [place] heart Associated angina: without angina Qualified Code(s): I25.10 - Atherosclerotic heart disease of [place] coronary artery without angina pectoris (6) Dementia Current Visit: Yes Status: Chronic Qualifiers: Dementia type: unspecified type Dementia behavioral disturbance: without behavioral disturbance Qualified Code(s): F03.90 - Unspecified dementia without behavioral disturbance (7) Hypertension Current Visit: Yes Status: Chronic Qualifiers: Hypertension type: essential hypertension Qualified Code(s): I10 - Essential (primary) hypertension (8) Atrial fibrillation Current Visit: Yes Status: Chronic Qualifiers: Atrial fibrillation type: chronic Qualified Code(s): I48.2 - Chronic atrial fibrillation - Summary of Assessment and Plan Summary of Assessment and Plan: Sepsis with right middle lobe pneumonia: Possibly pneumococcal pneumonia/atypical. Patient has signs and symptoms of pneumonia along with chest x-ray findings of right middle lobe pneumonia. Continue Rocephin and azithromycin. He had completed course ciprofloxacin about 5 days back. Will send urine for streptococcal and legionella antigens. Follow blood cultures. procalcitonin level is elevated at 0.28. Generalized weakness: Likely due to pneumonia. We will consult physical therapy for evaluation. Mild acute kidney injury: Creatinine 1.34. Will treat with gentle IV hydration. Follow renal function closely. Coronary artery disease: Continue aspirin for now. We will monitor platelet levels. Dementia: Continue Aricept and Namenda. Patient apparently has history of delirium during hospital stays. We will monitor and treat accordingly. Pancytopenia: Patient takes methotrexate weekly which may be the cause of his pancytopenia. Hold this week's dose. It could also be due to sepsis. Monitor blood counts closely. Patient's home medication list also states that he takes Rituxan 100 mg IV every 6 months. Will need to clarify when he received this medication last. Chronic atrial fibrillation: Rate controlled. Continue metoprolol. Monitor blood pressure closely. DVT prophylaxis with SCDs alone due to thrombocytopenia. - Time Spent With Patient Total time spent is greater than 50% in coordination of care (as documented) at patient's floor/unit and/or counseling patient:
[2018-10-08 21:34] LABS: Bilirubin,Urine Negative (Negative); Blood,Urine Negative (Negative); Clarity,Urine Clear (Clear); Color,Urine Yellow (Yellow); Glucose,Urine (UA) Normal (Normal); Ketones,Urine Negative (Negative); Leukocyte Esterase,Urine Negative (Negative); Nitrite,Urine Negative (Negative); PH,Urine 6.5 pH Units (5.0-8.0); Protein,Urine Negative (Neg-Trace); Specific Gravity,Urine 1.013 (1.010-1.025); Urobilinogen,Urine Normal (Normal)
[2018-10-09 02:30] LABS: Basophils % 0.4 %; Hemoglobin 9.1 g/dL (12.9-16.9); Red Cell Distribution Width 16.8 % (11.5-14.5)
[2018-10-09 02:32] LABS: Eosinophils # 0.2 K/mcL (0.0-0.6); Eosinophils % 8.8 %; Hematocrit 28.2 % (37.5-50.1); Immature Granulocytes % 5.8 % (0-4); Immature Platelets 8.6 % (1.1-6.1); Lymphocytes # 0.3 K/mcL (0.6-4.6); Lymphocytes % 10.2 %; Mean Corpuscular HGB Conc 32.3 g/dL (31.6-35.5); Mean Corpuscular Volume 105.2 fL (83.0-100.0); Mean Platelet Volume 13.5 fL (9.4-12.4); Monocytes # 0.2 K/mcL (0.0-1.3); Monocytes % 5.5 %; Neutrophils # 1.9 K/mcL (1.6-8.9); Red Blood Count 2.68 M/mcL (4.19-5.50); Segmented Neutrophils % 69.3 %; White Blood Count 2.7 K/mcL (4.3-11.1)
[2018-10-09 02:38] LABS: Platelet Count 63 K/mcL (140-400)
[2018-10-09 02:46] LABS: BUN/Creatinine Ratio 16 (6-26); Blood Urea Nitrogen 20 mg/dL (8-23); Calcium 7.8 mg/dL (8.6-10.3); Carbon Dioxide 24 mEq/L (23-29); Chloride 107 mEq/L (98-107); Glucose 90 mg/dL (70-105); Osmolality,Calculated 286 (280-300); Potassium 4.1 mEq/L (3.5-5.1); Sodium 137 mEq/L (136-145); eGFR For African Americans > 60 (> 60); eGFR For Non-African Americans 56 (> 60)
[2018-10-09 03:04] LABS: Hypochromasia Present (Not Present); Platelet Estimate Decreased (Normal)
[2018-10-09] MEDS ORDERED: Aspirin 81 MG TAB.CHEW PO SCH (09:00)
[2018-10-09] MEDS: Cyanocobalamin (B-12) 1,000 MCG TABLET PO SCH (10:26)
[2018-10-09] MEDS: Folic Acid 1 MG TABLET PO SCH (10:26)
[2018-10-09] MEDS: cefTRIAXone 1,000 MG in Water for inj. (sterile) 10 ML IVP SCH (10:27)
[2018-10-09] MEDS: Azithromycin 250 MG TABLET PO SCH (10:27)
--- NOTE | 2018-10-09 11:14 | Internal Med Progress Note ---
Hospitalist Progress Note - Encounter Date of Encounter: 10/09/18 Time of Encounter: 09:10 - Subjective Interval History: Patient reports feeling better today. Denies any new complaints. No fever reported last night. No nausea/ vomiting. No chest pain. - Exam Vitals: Temp Pulse Resp BP Pulse Ox 98.7 F 90 16 105/67 96 10/09/18 10:20 10/09/18 10:20 10/09/18 10:20 10/09/18 10:20 10/09/18 10:20 Exam: General: Patient is alert, no acute distress, oriented x 3 Respiratory: rhonchi mainly in right lung. Cardiovascular: Regular rate and rhythm. s1 and s2 normal No clicks, rubs, gallops, or murmurs. No pedal edema Abdomen: Abdomen is soft, nontender. Bowel sounds are present Musculoskeletal: Spontaneously moving all extremities Skin: warm, dry, intact. Neuro: Alert oriented x 3 normal cranial nerves, no focal deficits - Assessment and Plan (1) Right middle lobe pneumonia Current Visit: Yes Status: Suspected (2) Pancytopenia Current Visit: Yes Status: Acute (3) Generalized weakness Current Visit: Yes Status: Acute (4) Sepsis Current Visit: Yes Status: Suspected (5) CAD (coronary artery disease) Current Visit: Yes Status: Chronic (6) Dementia Current Visit: Yes Status: Chronic (7) Hypertension Current Visit: Yes Status: Chronic (8) Atrial fibrillation Current Visit: Yes Status: Chronic DVT Prophylaxis: On SCDs alone due to anemia and thrombocytopenia - Summary of Assessment and Plan Summary of Assessment and Plan: Sepsis with right middle lobe pneumonia: Urine antigens negative for legionella and Streptococcus pneumonia. Continue current antibiotics. No new episodes of fever reported. Follow culture results. Generalized weakness: Await physical therapy evaluation.. Mild acute kidney injury: Resolved. Coronary artery disease: Hold aspirin due to persistent thrombocytopenia. Dementia: Continue Aricept and Namenda. Continue to monitor for delirium Pancytopenia: Patient takes methotrexate weekly which may be the cause of his pancytopenia. He also received Prolia yesterday which may cause thrombocytopenia and anemia. We will continue to monitor blood counts. Check peripheral smear. Chronic atrial fibrillation: Rate controlled. Continue metoprolol. Monitor blood pressure closely. Not currently on anticoagulation due to underlying dementia and high risk for fall DVT prophylaxis with SCDs alone due to thrombocytopenia. - Time Spent with Patient Total time spent is greater than 50% in coordination of care (as documented) at patient's floor/unit and/or counseling patient: Internal Medicine: Result - Labs CBC & Chem 7: 10/09/18 01:46 10/09/18 01:46 Labs: Short CBC 10/08/18 10/09/18 Range/Units 15:50 01:46 WBC 3.5 L 2.7 L (4.3-11.1) K/mcL Hgb 10.0 L 9.1 L (12.9-16.9) g/dL Hct 30.3 L 28.2 L (37.5-50.1) % Plt Count 82 L 63 L (140-400) K/mcL Neutrophils # 2.7 1.9 (1.6-8.9) K/mcL BMP 10/08/18 10/09/18 15:50 01:46 Sodium 136 137 Potassium 3.8 4.1 Chloride 106 107 Carbon Dioxide 24 24 BUN 22 20 Creatinine 1.34 H 1.23 Glucose 108 H 90 Calcium 8.0 L 7.8 L Cardiac Enzymes 10/08/18 Range/Units 15:50 Troponin I < 0.03 (< 0.04) ng/mL Urine 10/08/18 Range/Units 21:23 Urine Color Yellow (Yellow) Urine Clarity Clear (Clear) Urine pH 6.5 (5.0-8.0) pH Units Ur Specific [place] 1.013 (1.010-1.025) Urine Protein Negative (Neg-Trace) mg/dL Urine Glucose (UA) Normal (Normal) mg/dL - ABG Interpretation ABG results: PT/INR, D-dimer PT 14.9 Seconds (9.4-12.1) H 10/08/18 15:50 - Impressions Impressions Chest X-Ray 10/08/18 15:39 IMPRESSION: Focal increased opacity within the right midlung, concerning for pneumonia. That should be followed to resolution. D/ / Jose Manuel Alanis MD / Jose Manuel Alanis MD Interpreting Provider: Jose Manuel Alanis MD Head CT 10/08/18 15:39 IMPRESSION: 1. No acute intracranial abnormality. 2. [id number] global parenchymal volume loss with chronic microvascular ischemic changes. 3. Scattered sinusitis including air-fluid levels within the maxillary sinuses bilaterally. 4. Bilateral mastoid effusions. D/ / Nate Lopez MD / Nate Lopez MD Interpreting Provider: Nate Lopez MD Consult Discharge Plan - Plan Referrals: Brayden Quinonez MD [Primary Care Provider] - (1) Right middle lobe pneumonia Qualifiers: Pneumonia type: due to Pneumococcus Qualified Code(s): J13 - Pneumonia due to Streptococcus pneumoniae (4) Sepsis Qualifiers: Sepsis type: Pneumococcus Qualified Code(s): A40.3 - Sepsis due to Streptococcus pneumoniae (5) CAD (coronary artery disease) Qualifiers: Coronary Disease-Associated Artery/Lesion type: [place] artery [place] vs. transplanted heart: [place] heart Associated angina: without angina Qualified Code(s): I25.10 - Atherosclerotic heart disease of [place] coronary artery without angina pectoris (6) Dementia Qualifiers: Dementia type: unspecified type Dementia behavioral disturbance: without behavioral disturbance Qualified Code(s): F03.90 - Unspecified dementia without behavioral disturbance (7) Hypertension Qualifiers: Hypertension type: essential hypertension Qualified Code(s): I10 - Essential (primary) hypertension (8) Atrial fibrillation Qualifiers: Atrial fibrillation type: chronic Qualified Code(s): I48.2 - Chronic atrial fibrillation
[2018-10-09] MEDS ORDERED: *HR* Heparin 5,000 UNIT/ML VIAL SQ SCH (18:00)
[2018-10-10 07:39] LABS: Basophils % 0.9 %; Eosinophils # 0.2 K/mcL (0.0-0.6); Hematocrit 29.3 % (37.5-50.1); Hemoglobin 9.6 g/dL (12.9-16.9); Immature Granulocytes % 4.6 % (0-4); Immature Platelets 7.8 % (1.1-6.1); Lymphocytes # 0.3 K/mcL (0.6-4.6); Lymphocytes % 11.4 %; Mean Corpuscular HGB Conc 32.8 g/dL (31.6-35.5); Mean Corpuscular Hemoglobin 34.4 pg (28.0-33.3); Mean Platelet Volume 12.7 fL (9.4-12.4); Monocytes # 0.2 K/mcL (0.0-1.3); Monocytes % 9.1 %; Neutrophils # 1.4 K/mcL (1.6-8.9); Red Blood Count 2.79 M/mcL (4.19-5.50); Red Cell Distribution Width 16.4 % (11.5-14.5); White Blood Count 2.2 K/mcL (4.3-11.1)
[2018-10-10 08:08] LABS: Platelet Count 62 K/mcL (140-400)
[2018-10-10] MEDS: Azithromycin 250 MG TABLET PO SCH (09:20)
[2018-10-10] MEDS: Folic Acid 1 MG TABLET PO SCH (09:20)
[2018-10-10] MEDS: Cyanocobalamin (B-12) 1,000 MCG TABLET PO SCH (09:20)
[2018-10-10] MEDS: cefTRIAXone 1,000 MG in Water for inj. (sterile) 10 ML IVP SCH (09:21)
--- NOTE | 2018-10-10 16:24 | Internal Med Progress Note ---
Hospitalist Progress Note - Encounter Date of Encounter: 10/10/18 Time of Encounter: 16:22 - Subjective Interval History: Patient is awake and alert. His been having diarrhea since this morning. Continues to have some cough. No episodes of agitation and delirium. - Exam Vitals: Temp Pulse Resp BP Pulse Ox 98.8 F 97 16 92/57 100 10/10/18 15:23 10/10/18 15:23 10/10/18 15:23 10/10/18 15:23 10/10/18 15:23 Exam: General: Patient is alert, no acute distress, oriented x 2 Respiratory: Coarse breath sounds bilaterally Cardiovascular: Regular rate and rhythm. s1 and s2 normal No clicks, rubs, gallops, or murmurs. No pedal edema Abdomen: Abdomen is soft, nontender. Bowel sounds are present Musculoskeletal: Spontaneously moving all extremities Skin: warm, dry, intact. Neuro: Alert oriented x 2 normal cranial nerves, no focal deficits - Assessment and Plan (1) Right middle lobe pneumonia Current Visit: Yes Status: Acute (2) Pancytopenia Current Visit: Yes Status: Acute (3) Generalized weakness Current Visit: Yes Status: Acute (4) Sepsis Current Visit: Yes Status: Suspected (5) CAD (coronary artery disease) Current Visit: Yes Status: Chronic (6) Dementia Current Visit: Yes Status: Chronic (7) Hypertension Current Visit: Yes Status: Chronic (8) Atrial fibrillation Current Visit: Yes Status: Chronic DVT Prophylaxis: On SCDs alone due to anemia and thrombocytopenia - Summary of Assessment and Plan Summary of Assessment and Plan: Sepsis with right middle lobe pneumonia: Blood cultures have been negative. We will continue current antibiotics. Transition to oral antibiotics. Diarrhea: Will check stool for C. difficile as patient has been on antibiotics. Generalized weakness: Physical therapy evaluation pending... Mild acute kidney injury: Resolved. Coronary artery disease: Continue to hold aspirin. Continue statin and beta raphael. Will decrease beta raphael dosage to 12.5 once daily of Toprol-XL. As patient has been having low normal Blood pressure. Dementia: Continue Aricept and Namenda. Continue to monitor for delirium Pancytopenia: Appears to be stabilizing. Peripheral smear reviewed. Most likely related to recent use of prolia and also chronic methotrexate therapy. Would recommend to hold upcoming dose of Rituxan for about 2 weeks. Chronic atrial fibrillation: Remains rate controlled. Patient not on anticoagulation due to high risk for falls and underlying dementia along with thrombocytopenia. DVT prophylaxis with SCDs alone due to thrombocytopenia. - Time Spent with Patient Total time spent is greater than 50% in coordination of care (as documented) at patient's floor/unit and/or counseling patient: Internal Medicine: Result - Labs CBC & Chem 7: 10/10/18 07:13 10/09/18 01:46 Labs: Short CBC 10/10/18 Range/Units 07:13 WBC 2.2 L (4.3-11.1) K/mcL Hgb 9.6 L (12.9-16.9) g/dL Hct 29.3 L (37.5-50.1) % Plt Count 62 L (140-400) K/mcL Neutrophils # 1.4 L (1.6-8.9) K/mcL - ABG Interpretation ABG results: PT/INR, D-dimer PT 14.9 Seconds (9.4-12.1) H 10/08/18 15:50 Consult Discharge Plan - Plan Referrals: Brayden Quinonez MD [Primary Care Provider] - 10/21/18 2:15 pm (1) Right middle lobe pneumonia Qualifiers: Pneumonia type: due to unspecified organism Qualified Code(s): J18.1 - Lobar pneumonia, unspecified organism (4) Sepsis Qualifiers: Sepsis type: Pneumococcus Qualified Code(s): A40.3 - Sepsis due to Streptococcus pneumoniae (5) CAD (coronary artery disease) Qualifiers: Coronary Disease-Associated Artery/Lesion type: [place] artery [place] vs. transplanted heart: [place] heart Associated angina: without angina Qualified Code(s): I25.10 - Atherosclerotic heart disease of [place] coronary artery without angina pectoris (6) Dementia Qualifiers: Dementia type: unspecified type Dementia behavioral disturbance: without behavioral disturbance Qualified Code(s): F03.90 - Unspecified dementia without behavioral disturbance (7) Hypertension Qualifiers: Hypertension type: essential hypertension Qualified Code(s): I10 - Essential (primary) hypertension (8) Atrial fibrillation Qualifiers: Atrial fibrillation type: chronic Qualified Code(s): I48.2 - Chronic atrial fibrillation
[2018-10-11 02:54] LABS: Hemoglobin 9.3 g/dL (12.9-16.9)
[2018-10-11 02:56] LABS: Basophils % 0.4 %; Eosinophils # 0.3 K/mcL (0.0-0.6); Hematocrit 28.5 % (37.5-50.1); Immature Granulocytes % 1.7 % (0-4); Immature Platelets 9.1 % (1.1-6.1); Lymphocytes # 0.2 K/mcL (0.6-4.6); Lymphocytes % 10.3 %; Mean Corpuscular HGB Conc 32.6 g/dL (31.6-35.5); Mean Corpuscular Hemoglobin 34.3 pg (28.0-33.3); Mean Corpuscular Volume 105.2 fL (83.0-100.0); Mean Platelet Volume 13.3 fL (9.4-12.4); Monocytes # 0.2 K/mcL (0.0-1.3); Monocytes % 7.7 %; Neutrophils # 1.6 K/mcL (1.6-8.9); Red Blood Count 2.71 M/mcL (4.19-5.50); Red Cell Distribution Width 16.6 % (11.5-14.5); Segmented Neutrophils % 67.9 %; White Blood Count 2.3 K/mcL (4.3-11.1)
[2018-10-11 03:16] LABS: BUN/Creatinine Ratio 12 (6-26); Blood Urea Nitrogen 14 mg/dL (8-23); Calcium 7.7 mg/dL (8.6-10.3); Carbon Dioxide 24 mEq/L (23-29); Chloride 104 mEq/L (98-107); Glucose 91 mg/dL (70-105); Osmolality,Calculated 278 (280-300); Potassium 3.9 mEq/L (3.5-5.1); Sodium 134 mEq/L (136-145); eGFR For African Americans > 60 (> 60); eGFR For Non-African Americans > 60 (> 60)
[2018-10-11 03:18] LABS: Platelet Count 66 K/mcL (140-400)
[2018-10-11 03:19] LABS: Platelet Estimate Decreased (Normal)
[2018-10-11] MEDS: Azithromycin 250 MG TABLET PO SCH (10:01)
[2018-10-11] MEDS: Folic Acid 1 MG TABLET PO SCH (10:01)
[2018-10-11] MEDS: Cyanocobalamin (B-12) 1,000 MCG TABLET PO SCH (10:02)
[2018-10-11] MEDS: Metoprolol XL (24 HR) Succ 25 MG TAB.ER.24H PO SCH (10:02)
[2018-10-11] MEDS: cefTRIAXone 1,000 MG in Water for inj. (sterile) 10 ML IVP SCH (10:02)
--- NOTE | 2018-10-11 14:35 | Internal Med Progress Note ---
Hospitalist Progress Note - Encounter Date of Encounter: 10/11/18 Time of Encounter: 14:33 - Subjective Interval History: Patient feels better overall. Denies any new complaints. He has not had any further episodes of diarrhea since yesterday morning. Tolerating oral diet well. Does have some cough. No chest pain or palpitations. No nausea or vomi ting. - Exam Vitals: Temp Pulse Resp BP Pulse Ox 97.9 F 95 16 97/67 99 10/11/18 11:42 10/11/18 11:42 10/11/18 11:42 10/11/18 11:42 10/11/18 11:42 Exam: General: Patient is alert, no acute distress, oriented x2 Respiratory: Coarse breath sounds especially over the right lung Cardiovascular: Regular rate and rhythm. s1 and s2 normal No clicks, rubs, gallops, or murmurs. No pedal edema Abdomen: Abdomen is soft, nontender. Bowel sounds are present Musculoskeletal: Spontaneously moving all extremities Skin: warm, dry, intact. Neuro: Alert oriented x 2 normal cranial nerves, no focal deficits - Assessment and Plan (1) Right middle lobe pneumonia Current Visit: Yes Status: Acute (2) Pancytopenia Current Visit: Yes Status: Acute (3) Generalized weakness Current Visit: Yes Status: Acute (4) Sepsis Current Visit: Yes Status: Suspected (5) CAD (coronary artery disease) Current Visit: Yes Status: Chronic (6) Dementia Current Visit: Yes Status: Chronic (7) Hypertension Current Visit: Yes Status: Chronic (8) Atrial fibrillation Current Visit: Yes Status: Chronic DVT Prophylaxis: On SCDs alone due to anemia and thrombocytopenia - Summary of Assessment and Plan Summary of Assessment and Plan: Sepsis with right middle lobe pneumonia: Continue azithromycin and Omnicef. Diarrhea: No further episodes of diarrhea. We will cancel stool studies. Generalized weakness: Patient evaluated by physical therapy and recommended placement to inpatient rehabilitation/swing bed. [employer] worker will work on this on Saturday. Mild acute kidney injury: Resolved. Coronary artery disease: Thrombocytopenia appears to be slowly improving. We will hold aspirin for today. If platelet counts continue to improve, will resume tomorrow. Continue metoprolol and statin. Dementia: Continue Aricept and Namenda. Continue to monitor for delirium Pancytopenia: Appears to be improving, WBC 2.3, platelets 66 today. Recommend to hold next dose of methotrexate and Rituxan Chronic atrial fibrillation: Remains rate controlled. Patient not on anticoagulation due to high risk for falls and underlying dementia along with thrombocytopenia. DVT prophylaxis with SCDs alone due to thrombocytopenia. - Time Spent with Patient Total time spent is greater than 50% in coordination of care (as documented) at patient's floor/unit and/or counseling patient: Internal Medicine: Result - Labs CBC & Chem 7: 10/11/18 02:05 10/11/18 02:05 Labs: Short CBC 10/11/18 Range/Units 02:05 WBC 2.3 L (4.3-11.1) K/mcL Hgb 9.3 L (12.9-16.9) g/dL Hct 28.5 L (37.5-50.1) % Plt Count 66 L (140-400) K/mcL Neutrophils # 1.6 (1.6-8.9) K/mcL BMP 10/11/18 02:05 Sodium 134 L Potassium 3.9 Chloride 104 Carbon Dioxide 24 BUN 14 Creatinine 1.16 Glucose 91 Calcium 7.7 L - ABG Interpretation ABG results: PT/INR, D-dimer PT 14.9 Seconds (9.4-12.1) H 10/08/18 15:50 Consult Discharge Plan - Plan Referrals: Brayden Quinonez MD [Primary Care Provider] - 10/21/18 2:15 pm (1) Right middle lobe pneumonia Qualifiers: Pneumonia type: due to unspecified organism Qualified Code(s): J18.1 - Lobar pneumonia, unspecified organism (4) Sepsis Qualifiers: Sepsis type: Pneumococcus Qualified Code(s): A40.3 - Sepsis due to Streptococcus pneumoniae (5) CAD (coronary artery disease) Qualifiers: Coronary Disease-Associated Artery/Lesion type: [place] artery [place] vs. transplanted heart: [place] heart Associated angina: without angina Qualified Code(s): I25.10 - Atherosclerotic heart disease of [place] coronary artery without angina pectoris (6) Dementia Qualifiers: Dementia type: unspecified type Dementia behavioral disturbance: without behavioral disturbance Qualified Code(s): F03.90 - Unspecified dementia without behavioral disturbance (7) Hypertension Qualifiers: Hypertension type: essential hypertension Qualified Code(s): I10 - Essential (primary) hypertension (8) Atrial fibrillation Qualifiers: Atrial fibrillation type: chronic Qualified Code(s): I48.2 - Chronic atrial fibrillation
[2018-10-11] MEDS ORDERED: Nitroglycerin 0.4 MG TAB.SUBL SL PRN (18:02)
[2018-10-11] MEDS ORDERED: MEMANTINE HCL 10 MG PO SCH (21:00)
[2018-10-11] MEDS: Lactobacillus 1 EACH CAP.SPRINK PO SCH (21:01)
[2018-10-11] MEDS: Cefdinir 300 MG CAPSULE PO SCH (21:01)
[2018-10-12 04:20] LABS: Basophils % 0.7 %; Mean Platelet Volume 13.1 fL (9.4-12.4)
[2018-10-12 04:21] LABS: Eosinophils # 0.4 K/mcL (0.0-0.6); Eosinophils % 14.1 %; Hematocrit 27.7 % (37.5-50.1); Hemoglobin 9.1 g/dL (12.9-16.9); Immature Granulocytes % 7.4 % (0-4); Immature Platelets 9.8 % (1.1-6.1); Lymphocytes # 0.4 K/mcL (0.6-4.6); Mean Corpuscular HGB Conc 32.9 g/dL (31.6-35.5); Mean Corpuscular Hemoglobin 34.2 pg (28.0-33.3); Mean Corpuscular Volume 104.1 fL (83.0-100.0); Monocytes # 0.2 K/mcL (0.0-1.3); Neutrophils # 1.6 K/mcL (1.6-8.9); Red Blood Count 2.66 M/mcL (4.19-5.50); Red Cell Distribution Width 16.5 % (11.5-14.5); Segmented Neutrophils % 57.8 %; White Blood Count 2.8 K/mcL (4.3-11.1)
[2018-10-12 04:25] LABS: Platelet Count 76 K/mcL (140-400)
[2018-10-12 04:39] LABS: BUN/Creatinine Ratio 11 (6-26); Blood Urea Nitrogen 13 mg/dL (8-23); Calcium 7.7 mg/dL (8.6-10.3); Carbon Dioxide 23 mEq/L (23-29); Chloride 103 mEq/L (98-107); Glucose 91 mg/dL (70-105); Osmolality,Calculated 274 (280-300); Potassium 4.1 mEq/L (3.5-5.1); Sodium 132 mEq/L (136-145); eGFR For African Americans > 60 (> 60); eGFR For Non-African Americans > 60 (> 60)
[2018-10-12 05:23] LABS: Platelet Estimate Decreased (Normal); Reactive Lymphocytes Present (Not Present)
[2018-10-12] MEDS: Cefdinir 300 MG CAPSULE PO SCH ×2 (09:35→21:08)
[2018-10-12] MEDS: Cyanocobalamin (B-12) 1,000 MCG TABLET PO SCH (09:35)
[2018-10-12] MEDS: Folic Acid 1 MG TABLET PO SCH (09:36)
[2018-10-12] MEDS: Lactobacillus 1 EACH CAP.SPRINK PO SCH ×2 (09:36→21:08)
[2018-10-12] MEDS: Metoprolol XL (24 HR) Succ 25 MG TAB.ER.24H PO SCH (09:36)
[2018-10-12] MEDS: Azithromycin 250 MG TABLET PO SCH (09:36)
--- NOTE | 2018-10-12 11:02 | Internal Med Progress Note ---
Hospitalist Progress Note - Encounter Date of Encounter: 10/12/18 Time of Encounter: 09:10 - Subjective Interval History: Patient is awake and alert. Denies any new complaints at this time. No chest pain or palpitations. Continues to have cough. No fevers reported overnight - Exam Vitals: Temp Pulse Resp BP Pulse Ox 98.2 F 94 16 114/72 100 10/12/18 08:09 10/12/18 08:09 10/12/18 08:09 10/12/18 08:09 10/12/18 08:09 Exam: General: Patient is alert, no acute distress, oriented x 3 Respiratory: Coarse breath sounds bilaterally Cardiovascular: Regular rate and rhythm. s1 and s2 normal No clicks, rubs, gallops, or murmurs. No pedal edema Abdomen: Abdomen is soft, nontender. Bowel sounds are present Musculoskeletal: Spontaneously moving all extremities Skin: warm, dry, intact. Neuro: Alert oriented x 3 normal cranial nerves, no focal deficits - Assessment and Plan (1) Right middle lobe pneumonia Current Visit: Yes Status: Acute (2) Pancytopenia Current Visit: Yes Status: Acute (3) Generalized weakness Current Visit: Yes Status: Acute (4) Sepsis Current Visit: Yes Status: Suspected (5) CAD (coronary artery disease) Current Visit: Yes Status: Chronic (6) Dementia Current Visit: Yes Status: Chronic (7) Hypertension Current Visit: Yes Status: Chronic (8) Atrial fibrillation Current Visit: Yes Status: Chronic DVT Prophylaxis: On SCDs alone due to anemia and thrombocytopenia - Summary of Assessment and Plan Summary of Assessment and Plan: Sepsis with right middle lobe pneumonia: Continue azithromycin and Omnicef. Complete 7 day course of antibiotics Diarrhea: Appears to have resolved now Generalized weakness: Patient evaluated by physical therapy and recommended placement to inpatient rehabilitation/swing bed. [place] worker will work on this on Saturday. Mild acute kidney injury: Resolved. Coronary artery disease: Improving thrombocytopenia. Will place patient back on aspirin. Continue other medications. Dementia: Continue Namenda and Aricept. No signs of delirium. Pancytopenia: Improving. We will continue to monitor. Hold next dose of methotrexate due to pancytopenia. Chronic atrial fibrillation: Remains rate controlled. Patient not on anticoagulation due to high risk for falls and underlying dementia along with thrombocytopenia. DVT prophylaxis with SCDs alone due to thrombocytopenia. - Time Spent with Patient Total time spent is greater than 50% in coordination of care (as documented) at patient's floor/unit and/or counseling patient: Internal Medicine: Result - Labs CBC & Chem 7: 10/12/18 03:25 10/12/18 03:25 Labs: Short CBC 10/12/18 Range/Units 03:25 WBC 2.8 L (4.3-11.1) K/mcL Hgb 9.1 L (12.9-16.9) g/dL Hct 27.7 L (37.5-50.1) % Plt Count 76 L (140-400) K/mcL Neutrophils # 1.6 (1.6-8.9) K/mcL BMP 10/12/18 03:25 Sodium 132 L Potassium 4.1 Chloride 103 Carbon Dioxide 23 BUN 13 Creatinine 1.16 Glucose 91 Calcium 7.7 L - ABG Interpretation ABG results: PT/INR, D-dimer PT 14.9 Seconds (9.4-12.1) H 10/08/18 15:50 Consult Discharge Plan - Plan Referrals: Brayden Quinonez MD [Primary Care Provider] - 10/21/18 2:15 pm (1) Right middle lobe pneumonia Qualifiers: Pneumonia type: due to unspecified organism Qualified Code(s): J18.1 - Lobar pneumonia, unspecified organism (4) Sepsis Qualifiers: Sepsis type: Pneumococcus Qualified Code(s): A40.3 - Sepsis due to Streptococcus pneumoniae (5) CAD (coronary artery disease) Qualifiers: Coronary Disease-Associated Artery/Lesion type: [place] artery [place] vs. transplanted heart: [place] heart Associated angina: without angina Qualified Code(s): I25.10 - Atherosclerotic heart disease of [place] coronary artery without angina pectoris (6) Dementia Qualifiers: Dementia type: unspecified type Dementia behavioral disturbance: without behavioral disturbance Qualified Code(s): F03.90 - Unspecified dementia without behavioral disturbance (7) Hypertension Qualifiers: Hypertension type: essential hypertension Qualified Code(s): I10 - Essential (primary) hypertension (8) Atrial fibrillation Qualifiers: Atrial fibrillation type: chronic Qualified Code(s): I48.2 - Chronic atrial fibrillation
--- NOTE | 2018-10-12 18:01 | Electrocardiograph Report ---
[facility] Test Date: 2018-10-08 Pat Name: Feliciano Escalona Department: [id number] Room: 3B63 Gender: M Personal Injury Law Specialist: : [id number] Requested By: Yosef Christianson Order Number: [id number] Reading MD: Yrn Cummings Measurements Intervals [place] Rate: 96 P: [place]: QRS: -11 QRSD: 92 T: 47 QT: 342 QTc: 433 Interpretive Statements Atrial fibrillation Electronically Signed On 10-12-2018 17:59:47 EDT by Yrn Cummings
[2018-10-13 05:09] LABS: Hematocrit 30.2 % (37.5-50.1); Hemoglobin 9.8 g/dL (12.9-16.9); Mean Corpuscular HGB Conc 32.5 g/dL (31.6-35.5); Mean Corpuscular Hemoglobin 34.5 pg (28.0-33.3); Mean Corpuscular Volume 106.3 fL (83.0-100.0); Mean Platelet Volume 12.4 fL (9.4-12.4); Platelet Count 109 K/mcL (140-400); Red Blood Count 2.84 M/mcL (4.19-5.50); Red Cell Distribution Width 16.8 % (11.5-14.5)
[2018-10-13 05:32] LABS: Anisocytosis 1+ (Not Present); Eosinophils # 0.2 K/mcL (0.0-0.6); Lymphocytes # 0.8 K/mcL (0.6-4.6); Macrocytosis Present (Not Present); Monocytes # 0.4 K/mcL (0.0-1.3); Neutrophils # 2.6 K/mcL (1.6-8.9)
[2018-10-13 05:33] LABS: Microcytosis Present (Not Present); Platelet Estimate Slight Decrease (Normal)
--- NOTE | 2018-10-13 06:45 | Event Note ---
Date of Encounter: 10/13/18 Time of Encounter: 05:29 Notified by nurse of patient falling while he was in the room with patient. Nurse was able to partially break patients fall but unable to completely prevent it. Patient did not strike head or loose consciousness. Not on anticoagulants. Patient with history of dementia at baseline. Denies any injury or pain. Skin tear noted to left arm. Moves all extremities freely. Nurse to notify of any changes.
[2018-10-13] MEDS: Cyanocobalamin (B-12) 1,000 MCG TABLET PO SCH (08:15)
[2018-10-13] MEDS: Lactobacillus 1 EACH CAP.SPRINK PO SCH (08:15)
[2018-10-13] MEDS: Metoprolol XL (24 HR) Succ 25 MG TAB.ER.24H PO SCH (08:15)
[2018-10-13] MEDS: Cefdinir 300 MG CAPSULE PO SCH (08:15)
[2018-10-13] MEDS: Folic Acid 1 MG TABLET PO SCH (08:15)
[2018-10-13] MEDS: Azithromycin 250 MG TABLET PO SCH (08:15)
[2018-10-13] MEDS ORDERED: Aspirin Enteric Coated 81 MG Tablet PO SCH (09:00)
[2018-10-13 15:19] VITALS: BP 100/64
--- NOTE | 2018-10-13 16:14 | Discharge Summary ---
- NOTES TO OUTPATIENT PROVIDER Notes to Outpatient Provider: Patient with a history of atrial fibrillation, not on anticoagulation due to high risk for falls, coronary artery disease, hypertension, dementia who was hospitalized here for sepsis frompneumonia involving his right middle lobe along with pancytopenia. Patient was treated with IV antibiotics. His symptoms have significantly improved now. He is able to breathe better. His cultures have been negative so far. He continues to be overall and was evaluated by physical therapy who recommended placement to skilled rehabilitation. Patient will complete course of antibiotics. I recommended that he hold his dose of methotrexate for one more week given his pancytopenia and also to postpone treatment with Rituxan. His pancytopenia has improved now and his WBC count is 4. Platelets have also improved to 109. We will need follow-up CBC prior to taking methotrexate and Rituxan. Orders not resulted at time of discharge: Pending orders 10/08/18 15:50 Culture,Blood [BC] Stat Date of Encounter: 10/13/18 Time of Encounter: 16:09 - Discharge Diagnosis (1) Right middle lobe pneumonia Priority: Primary Status: Acute Qualifiers: Pneumonia type: due to unspecified organism Qualified Code(s): J18.1 - Lobar pneumonia, unspecified organism (2) Pancytopenia Priority: Secondary Status: Acute (3) Generalized weakness Priority: Secondary Status: Acute (4) Sepsis Priority: Secondary Status: Suspected Qualifiers: Sepsis type: sepsis due to unspecified organism Qualified Code(s): A41.9 - Sepsis, unspecified organism (5) CAD (coronary artery disease) Priority: Secondary Status: Chronic Qualifiers: Coronary Disease-Associated Artery/Lesion type: [place] artery [place] vs. transplanted heart: [place] heart Associated angina: without angina Qualified Code(s): I25.10 - Atherosclerotic heart disease of [place] coronary artery without angina pectoris (6) Dementia Priority: Secondary Status: Chronic Qualifiers: Dementia type: unspecified type Dementia behavioral disturbance: without behavioral disturbance Qualified Code(s): F03.90 - Unspecified dementia without behavioral disturbance (7) Hypertension Priority: Secondary Status: Chronic Qualifiers: Hypertension type: essential hypertension Qualified Code(s): I10 - Essential (primary) hypertension (8) Atrial fibrillation Priority: Secondary Status: Chronic Qualifiers: Atrial fibrillation type: chronic Qualified Code(s): I48.2 - Chronic atrial fibrillation Hospital course: Mr. Escalona is a 82 year old male Patient with a history of atrial fibrillation, not on anticoagulation due to high risk for falls, coronary artery disease, hypertension, dementia who was hospitalized here for sepsis frompneumonia involving his right middle lobe along with pancytopenia. Patient was treated with IV antibiotics. His symptoms have significantly improved now. He is able to breathe better. His cultures have been negative so far. He continues to be overall and was evaluated by physical therapy who recommended pl acement to skilled rehabilitation. Patient will complete course of antibiotics. I recommended that he hold his dose of methotrexate for one more week given his pancytopenia and also to postpone treatment with Rituxan. His pancytopenia has improved now and his WBC count is 4. Platelets have also improved to 109. We will need follow-up CBC prior to taking methotrexate and Rituxan. Discharge discussed with: patient, nurse - Time Spent with Patient Total time spent providing and/or coordinating discharge services: Time spent: Greater than 30 minutes (35 min) - Discharge Medications Prescriptions: New Cefdinir [Omnicef] 300 mg PO BID #6 capsule Metoprolol XL (24 HR) Succ [Toprol Xl] 12.5 mg PO DAILY #0 tab.er.24h Lactobacillus [Culturelle] 1 each PO BID #0 cap.sprink Continued Sertraline [Zoloft] 100 mg PO DAILY Aspirin 81 mg PO DAILY Methotrexate 0.8 mg SQ AMARO Donepezil [Aricept] 10 mg PO HS Simvastatin [Zocor] 20 mg PO HS Cholecalciferol (D-3) [Vitamin D] 1,000 unit PO DAILY riTUXimab [Rituxan] 1,000 mg IV [id number] Cyanocobalamin (Vitamin B-12) [Vitamin B12] 1,000 mcg PO DAILY Denosumab [Prolia (For Outpatient Infusion)] 60 mg SQ [id number] Folic Acid 0.8 mg PO DAILY Trospium Chloride 20 mg PO BID Calcium Carbonate [Calcium] 1,000 mg PO DAILY Memantine HCl 10 mg PO BID Nitroglycerin [Nitrostat] 0.4 mg SL Q5MIN PRN PRN Reason: Chest Pain Discontinued Metoprolol [Lopressor] 25 mg PO BID Home Medications: Aspirin 81 mg PO DAILY 04/09/15 [History] Donepezil [Aricept] 10 mg PO HS 04/09/15 [History] Methotrexate 0.8 mg SQ AMARO 04/09/15 [History] Sertraline [Zoloft] 100 mg PO DAILY 04/09/15 [History] Cholecalciferol (D-3) [Vitamin D] 1,000 unit PO DAILY 07/08/16 [History] Simvastatin [Zocor] 20 mg PO HS 07/08/16 [History] riTUXimab [Rituxan] 1,000 mg IV [id number] 07/08/16 [History] Cyanocobalamin (Vitamin B-12) [Vitamin B12] 1,000 mcg PO DAILY 05/27/18 [History] Denosumab [Prolia (For Outpatient Infusion)] 60 mg SQ [id number] 05/27/18 [History] Folic Acid 0.8 mg PO DAILY 05/27/18 [History] Trospium Chloride 20 mg PO BID 10/08/18 [History] Calcium Carbonate [Calcium] 1,000 mg PO DAILY 10/10/18 [History] Memantine HCl 10 mg PO BID 10/10/18 [History] Nitroglycerin [Nitrostat] 0.4 mg SL Q5MIN PRN 10/10/18 [History] Cefdinir [Omnicef] 300 mg PO BID #6 capsule 10/13/18 [Rx] Lactobacillus [Culturelle] 1 each PO BID #0 cap.sprink 10/13/18 [Rx] Metoprolol XL (24 HR) Succ [Toprol Xl] 12.5 mg PO DAILY #0 tab.er.24h 10/13/18 [Rx] Allergies/Adverse Reactions: Allergy/AdvReac Type Severity Reaction Status Date / Time No Known Allergies Allergy Verified 09/20/17 15:00 Date of admission: 10/09/18 14:35 Primary care physician: Brayden Quinonez MD Consults: 10/10/18 10:30 Consult to Occupational Therapy [CONS] Routine Comment: Evaluate, develop and implement POC Reason for Consult: possible need for home PT/OT, or ECF/SNF placement Does patient have active BEDREST order?: No Is patient medically & hemodynamically stable?: Yes Consult to Physical Therapy [CONS] Routine Comment: Evaluate, develop and implement POC Reason for Consult: possible need for home PT/OT, or ECF/SNF placement Does patient have active BEDREST order?: No Is patient medically & hemodynamically stable?: Yes 10/10/18 11:47 Consult to Nurse Navigator [CONS] Routine Comment: PNEUMONIA 10/13/18 13:40 Consult to [employer] Librarian [CONS] Routine Reason for SW Consult: PT/OT RECOMMEND SNF Discharging clinician: Adeline Weiner Anticipated date of discharge: 10/13/18 - Constitutional Vitals: Temp Pulse Resp BP Pulse Ox 99.2 F 116 17 100/64 98 10/13/18 15:18 10/13/18 15:18 10/13/18 15:18 10/13/18 15:18 10/13/18 15:18 General appearance: Present: cooperative, A&O X 2, pleasant, answers questions appropriately Exam: General: Patient is alert, no acute distress, oriented x 3 Respiratory: Good respiratory effort. Normal breath sounds. No wheezing or crackles. Cardiovascular: Regular rate and rhythm. s1 and s2 normal No clicks, rubs, gallops, or murmurs. No pedal edema Abdomen: Abdomen is soft, nontender. Bowel sounds are present Musculoskeletal: Spontaneously moving all extremities Skin: warm, dry, intact. Neuro: Alert oriented x 3 normal cranial nerves, no focal deficits - Patient Status Disposition: Transfer SNF Condition: Good Functional capacity at discharge: wheelchair bound Overall status at discharge: patient is progressing back to baseline - Discharge Instructions Instructions: Pneumonia (DC) Follow Up With: Brayden Quinonez MD [Primary Care Provider] - 10/21/18 2:15 pm - Diet and Activity Activity: increase activity as tolerated Diet: low fat, low cholesterol, low salt diet
--- NOTE | 2018-10-13 16:51 | Physician Discharge Referral ---
ExtendedCare Referral Info Provider in Charge after Transfer: PCP Institutional Level of Care: Skilled - Diagnosis (1) Right middle lobe pneumonia Priority: Primary Status: Acute (2) Pancytopenia Priority: Secondary Status: Acute (3) Generalized weakness Priority: Secondary Status: Acute (4) Sepsis Priority: Secondary Status: Suspected (5) CAD (coronary artery disease) Priority: Secondary Status: Chronic (6) Dementia Priority: Secondary Status: Chronic (7) Hypertension Priority: Secondary Status: Chronic (8) Atrial fibrillation Priority: Secondary Status: Chronic Prognosis: Fair Aware of Diagnosis: Patient Aware of Prognosis: Patient - Transfer Medications Prescriptions: Cefdinir [Omnicef] 300 mg PO BID #6 capsule Home Medications: Aspirin 81 mg PO DAILY 04/09/15 [History] Donepezil [Aricept] 10 mg PO HS 04/09/15 [History] Methotrexate 0.8 mg SQ AMARO 04/09/15 [History] Sertraline [Zoloft] 100 mg PO DAILY 04/09/15 [History] Cholecalciferol (D-3) [Vitamin D] 1,000 unit PO DAILY 07/08/16 [History] Simvastatin [Zocor] 20 mg PO HS 07/08/16 [History] riTUXimab [Rituxan] 1,000 mg IV [id number] 07/08/16 [History] Cyanocobalamin (Vitamin B-12) [Vitamin B12] 1,000 mcg PO DAILY 05/27/18 [History] Denosumab [Prolia (For Outpatient Infusion)] 60 mg SQ [id number] 05/27/18 [History] Folic Acid 0.8 mg PO DAILY 05/27/18 [History] Trospium Chloride 20 mg PO BID 10/08/18 [History] Calcium Carbonate [Calcium] 1,000 mg PO DAILY 10/10/18 [History] Memantine HCl 10 mg PO BID 10/10/18 [History] Nitroglycerin [Nitrostat] 0.4 mg SL Q5MIN PRN 10/10/18 [History] Cefdinir [Omnicef] 300 mg PO BID #6 capsule 10/13/18 [Rx] Lactobacillus [Culturelle] 1 each PO BID #0 cap.sprink 10/13/18 [Rx] Metoprolol XL (24 HR) Succ [Toprol Xl] 12.5 mg PO DAILY #0 tab.er.24h 10/13/18 [Rx] Allergies/Adverse Reactions: Allergy/AdvReac Type Severity Reaction Status Date / Time No Known Allergies Allergy Verified 09/20/17 15:00 - Respiratory Orders Oxygen / L per min (Keep sats greater than 88%) Smoking Cessation: Smoking cessation has been advised. For more information, call the [place] Tobacco Quit Line at 7-111-MDDI-NOW. - Lab Orders Lab Orders: CBC (in 1 week) - Advance Directives Code Status: Full Code - Rehabiliation Orders Rehab Potential: Fair Rehab Orders: Evaluation for Physical Therapy, Evaluation for Occupational Therapy - Diet Orders Cardiac CERTIFICATION: I certify that the transfer of the above named patient to an Extended Care Facility is necessary for the continuing treatment of the diagnosis listed. The above information is true and accurate reflection of patient's current condition. Confidential - Redisclosure prohibited without a patient's written consent.
== END 2018-10-13 18:08 | DRG 871 ==
LOC: EMEROOARM 15:26 → 3BNU 15:26 → SUATTDRO 10-09 14:35
PROVIDERS: ADMIT Internal Medicine; ATTEND Internal Medicine

== ENCOUNTER 2018-10-28 11:46 | Inpatient (IN) ==
[2018-10-28 12:26] LABS: Eosinophils # 0.1 K/mcL (0.0-0.6); Hematocrit 20.3 % (37.5-50.1); Mean Corpuscular HGB Conc 31.5 g/dL (31.6-35.5); Mean Corpuscular Hemoglobin 34.4 pg (28.0-33.3); Mean Corpuscular Volume 109.1 fL (83.0-100.0); Mean Platelet Volume 12.3 fL (9.4-12.4); Monocytes # 0.1 K/mcL (0.0-1.3); Platelet Count 106 K/mcL (140-400); Red Blood Count 1.86 M/mcL (4.19-5.50); Red Cell Distribution Width 19.9 % (11.5-14.5)
[2018-10-28 12:35] LABS: INR 1.2; Prothrombin Time 13.2 Seconds (9.4-12.1)
[2018-10-28 12:48] LABS: Albumin 2.9 g/dL (3.5-5.7); Albumin/Globulin Ratio 1.5 (1.1-2.2); Bilirubin,Direct 0.3 mg/dL (0.0-0.2); Bilirubin,Indirect 0.5 mg/dL (0.0-1.2); Bilirubin,Total 0.8 mg/dL (0.3-1.0); Globulin 1.9 g/dL (2.4-3.5); Total Protein 4.8 g/dL (6.4-8.9)
[2018-10-28 12:50] LABS: BUN/Creatinine Ratio 28 (6-26); Blood Urea Nitrogen 31 mg/dL (8-23); C-Reactive Protein 54 mg/L (Less than 10); Calcium 7.8 mg/dL (8.6-10.3); Carbon Dioxide 23 mEq/L (23-29); Chloride 109 mEq/L (98-107); Glucose 116 mg/dL (70-105); Osmolality,Calculated 290 (280-300); Potassium 3.7 mEq/L (3.5-5.1); Sodium 136 mEq/L (136-145); eGFR For African Americans > 60 (> 60); eGFR For Non-African Americans > 60 (> 60)
[2018-10-28 12:53] LABS: White Blood Count 4.7 K/mcL (4.3-11.1)
[2018-10-28 12:54] LABS: Troponin I 0.04 ng/mL (< 0.04)
[2018-10-28 12:57] LABS: Hemoglobin 6.4 g/dL (12.9-16.9)
[2018-10-28 13:15] LABS: Basophils # 0.1 K/mcL (0.0-0.2); Lymphocytes # 0.5 K/mcL (0.6-4.6)
[2018-10-28 13:19] LABS: Anisocytosis 1+ (Not Present); Microcytosis Present (Not Present); Platelet Estimate Decreased (Normal)
[2018-10-28] MEDS ORDERED: levoFLOXacin 750 MG/150 ML 750 MG/150 ML BAG IVPB ONE (14:08)
[2018-10-28] MEDS ORDERED: 0.9 % Sodium Chloride 1,000 ML IVC ONE (14:09)
[2018-10-28] MEDS ORDERED: Ondansetron 4 MG/2 ML VIAL IVP PRN (14:40)
[2018-10-28] MEDS ORDERED: Naloxone 0.4 MG/ML INJ IVP PRN (14:40)
[2018-10-28] MEDS ORDERED: D5% in Lactated Ringers 1,000 ML IVC SCH (15:00)
[2018-10-28] MEDS ORDERED: 0.9 % Sodium Chloride 250 ML ONE (15:18)
[2018-10-28] MEDS ORDERED: Perflutren Lipid Microsphere 1.3 ML in 0.9 % Sodium Chloride 8.7 ML IVP ONE (15:18)
[2018-10-28] MEDS ORDERED: Aminoglycoside Consult 1 EACH MC ONE (16:05)
[2018-10-28 16:42] LABS: Bilirubin,Urine Negative (Negative); Blood,Urine Negative (Negative); Clarity,Urine Clear (Clear); Color,Urine Yellow (Yellow); Glucose,Urine (UA) Normal (Normal); Ketones,Urine Negative (Negative); Leukocyte Esterase,Urine Negative (Negative); Nitrite,Urine Negative (Negative); Protein,Urine Negative (Neg-Trace); Urobilinogen,Urine Normal (Normal)
[2018-10-28] MEDS: Pantoprazole 40 MG VIAL IVP SCH ×2 (18:37→18:41)
[2018-10-28] MEDS: Metoprolol XL (24 HR) Succ 25 MG TAB.ER.24H PO SCH (18:41)
[2018-10-28] MEDS: Cefepime HCl 1,000 MG in Water for inj. (sterile) 10 ML IVP SCH ×2 (18:41→23:45)
[2018-10-28 20:14] LABS: Hemoglobin 6.8 g/dL (12.9-16.9); Mean Platelet Volume 12.2 fL (9.4-12.4)
[2018-10-28 20:16] LABS: Basophils % 0.5 %; Eosinophils # 0.1 K/mcL (0.0-0.6); Eosinophils % 1.5 %; Hematocrit 21.3 % (37.5-50.1); Immature Granulocytes % 3.5 % (0-4); Immature Platelets 7.6 % (1.1-6.1); Lymphocytes # 0.5 K/mcL (0.6-4.6); Lymphocytes % 11.9 %; Mean Corpuscular HGB Conc 31.9 g/dL (31.6-35.5); Mean Corpuscular Hemoglobin 34.5 pg (28.0-33.3); Mean Corpuscular Volume 108.1 fL (83.0-100.0); Monocytes # 0.1 K/mcL (0.0-1.3); Monocytes % 2.5 %; Neutrophils # 3.2 K/mcL (1.6-8.9); Red Blood Count 1.97 M/mcL (4.19-5.50); Red Cell Distribution Width 19.3 % (11.5-14.5); Segmented Neutrophils % 80.1 %
[2018-10-28 20:36] LABS: Platelet Count 83 K/mcL (140-400)
[2018-10-28 20:37] LABS: Platelet Estimate Decreased (Normal)
[2018-10-28 23:50] LABS: Hematocrit 20.5 % (37.5-50.1); Hemoglobin 6.5 g/dL (12.9-16.9)
[2018-10-29 01:09] LABS: Hemoglobin 6.3 g/dL (12.9-16.9)
[2018-10-29 01:11] LABS: Mean Corpuscular HGB Conc 31.5 g/dL (31.6-35.5); Mean Corpuscular Hemoglobin 33.9 pg (28.0-33.3); Mean Corpuscular Volume 107.5 fL (83.0-100.0); Mean Platelet Volume 12.2 fL (9.4-12.4); Red Blood Count 1.86 M/mcL (4.19-5.50); Red Cell Distribution Width 19.6 % (11.5-14.5)
[2018-10-29 01:16] LABS: BUN/Creatinine Ratio 23 (6-26); Blood Urea Nitrogen 21 mg/dL (8-23); Calcium 7.1 mg/dL (8.6-10.3); Carbon Dioxide 21 mEq/L (23-29); Chloride 111 mEq/L (98-107); Glucose 96 mg/dL (70-105); Magnesium 1.9 mg/dL (1.6-2.6); Osmolality,Calculated 287 (280-300); Phosphorous 2.2 mg/dL (2.7-4.5); Potassium 3.9 mEq/L (3.5-5.1); Sodium 137 mEq/L (136-145); eGFR For African Americans > 60 (> 60); eGFR For Non-African Americans > 60 (> 60)
[2018-10-29] MEDS ORDERED: 0.9 % Sodium Chloride 500 ML ONE (02:47)
[2018-10-29] MEDS: Pantoprazole 40 MG VIAL IVP SCH ×2 (05:07→16:56)
[2018-10-29] MEDS ORDERED: Furosemide 40 MG/4 ML VIAL IVP ONE (08:04)
[2018-10-29] MEDS: Cefepime HCl 1,000 MG in Water for inj. (sterile) 10 ML IVP SCH (08:38)
[2018-10-29 08:40] LABS: Hematocrit 23.4 % (37.5-50.1); Hemoglobin 7.4 g/dL (12.9-16.9)
[2018-10-29] MEDS: Metoprolol XL (24 HR) Succ 25 MG TAB.ER.24H PO SCH (08:40)
[2018-10-29] MEDS ORDERED: levoFLOXacin 750 MG/150 ML 750 MG/150 ML BAG IVPB SCH (09:00)
[2018-10-29 12:02] LABS: Hematocrit 26.3 % (37.5-50.1); Hemoglobin 8.4 g/dL (12.9-16.9)
[2018-10-29] MEDS ORDERED: E-Z-PAQUE (BARIUM SULF) SUSP 1 BOTTLE PO ONE (13:00)
[2018-10-29] MEDS ORDERED: E-Z-HD (BARIUM SULF) SUSPENSION PO ONE (13:00)
[2018-10-29] MEDS ORDERED: 0.9 % Sodium Chloride 250 ML ONE (13:59)
[2018-10-29] MEDS: cefTRIAXone 2,000 MG in Water for inj. (sterile) 20 ML IVP SCH (16:55)
[2018-10-29] MEDS: MetroNIDAZOLE 500 MG/100 ML 500 MG/100 ML BAG IVPB SCH (16:55)
[2018-10-29 19:26] LABS: Hematocrit 24.9 % (37.5-50.1); Hemoglobin 8.2 g/dL (12.9-16.9)
[2018-10-29] MEDS ORDERED: Dextrose Gel 15 GM/37.5 ML TUBE PO PRN ×2 (19:29)
[2018-10-29] MEDS: *HR* Dextrose 50 % in Water (Syg) 50 ML SYRINGE IVP PRN ×2 (20:08→22:58)
[2018-10-29] MEDS: DilTIAZem 50 MG in 0.9 % Sodium Chloride 40 ML IVC SCH (21:38)
[2018-10-30] MEDS: MetroNIDAZOLE 500 MG/100 ML 500 MG/100 ML BAG IVPB SCH ×3 (00:29→17:53)
[2018-10-30] MEDS: D5% in Water 1,000 ML IVC PRN (01:40)
[2018-10-30 03:40] LABS: Hemoglobin 8.3 g/dL (12.9-16.9)
[2018-10-30 03:42] LABS: Hematocrit 25.2 % (37.5-50.1); Immature Platelets 7.6 % (1.1-6.1); Mean Corpuscular HGB Conc 32.9 g/dL (31.6-35.5); Mean Corpuscular Hemoglobin 32.8 pg (28.0-33.3); Mean Corpuscular Volume 99.6 fL (83.0-100.0); Mean Platelet Volume 12.8 fL (9.4-12.4); Red Blood Count 2.53 M/mcL (4.19-5.50); Red Cell Distribution Width 21.5 % (11.5-14.5); White Blood Count 4.5 K/mcL (4.3-11.1)
[2018-10-30 04:01] LABS: BUN/Creatinine Ratio 16 (6-26); Blood Urea Nitrogen 17 mg/dL (8-23); Calcium 6.9 mg/dL (8.6-10.3); Carbon Dioxide 20 mEq/L (23-29); Chloride 109 mEq/L (98-107); Glucose 87 mg/dL (70-105); Osmolality,Calculated 283 (280-300); Potassium 3.3 mEq/L (3.5-5.1); Sodium 136 mEq/L (136-145); eGFR For African Americans > 60 (> 60); eGFR For Non-African Americans > 60 (> 60)
[2018-10-30] MEDS: Pantoprazole 40 MG VIAL IVP SCH ×2 (05:27→17:55)
[2018-10-30] MEDS: DilTIAZem 50 MG in 0.9 % Sodium Chloride 40 ML IVC SCH (06:46)
[2018-10-30] MEDS ORDERED: Aspirin 81 MG TAB.CHEW PO SCH (09:00)
[2018-10-30] MEDS ORDERED: Water for inj. (sterile) 20 ML IV ONE (17:46)
[2018-10-30] MEDS: cefTRIAXone 2,000 MG in Water for inj. (sterile) 20 ML IVP SCH (17:54)
[2018-10-31] MEDS: D5% in Water 1,000 ML IVC PRN (00:05)
[2018-10-31] MEDS: MetroNIDAZOLE 500 MG/100 ML 500 MG/100 ML BAG IVPB SCH ×3 (01:24→18:18)
[2018-10-31 01:40] LABS: Bilirubin,Urine Negative (Negative); Blood,Urine Negative (Negative); Clarity,Urine Clear (Clear); Color,Urine Yellow (Yellow); Glucose,Urine (UA) Normal (Normal); Ketones,Urine 15 mg/dL (Negative); Leukocyte Esterase,Urine Negative (Negative); Nitrite,Urine Negative (Negative); PH,Urine 6.5 pH Units (5.0-8.0); Protein,Urine Trace mg/dL (Neg-Trace); Specific Gravity,Urine 1.019 (1.010-1.025); Urobilinogen,Urine Normal (Normal)
[2018-10-31 05:14] LABS: BUN/Creatinine Ratio 16 (6-26); Blood Urea Nitrogen 15 mg/dL (8-23); Calcium 6.8 mg/dL (8.6-10.3); Carbon Dioxide 19 mEq/L (23-29); Chloride 107 mEq/L (98-107); Glucose 103 mg/dL (70-105); Osmolality,Calculated 279 (280-300); Potassium 3.4 mEq/L (3.5-5.1); Sodium 134 mEq/L (136-145); eGFR For African Americans > 60 (> 60); eGFR For Non-African Americans > 60 (> 60)
[2018-10-31] MEDS: Pantoprazole 40 MG VIAL IVP SCH ×2 (06:01→18:18)
[2018-10-31] MEDS: DilTIAZem 50 MG in 0.9 % Sodium Chloride 40 ML IVC SCH ×2 (09:27→14:52)
[2018-10-31] MEDS ORDERED: D5% in Water 500 ML IVC SCH (12:30)
[2018-10-31] MEDS: cefTRIAXone 2,000 MG in Water for inj. (sterile) 20 ML IVP SCH (14:51)
[2018-11-01] MEDS: MetroNIDAZOLE 500 MG/100 ML 500 MG/100 ML BAG IVPB SCH ×3 (00:48→16:49)
[2018-11-01] MEDS: DilTIAZem 50 MG in 0.9 % Sodium Chloride 40 ML IVC SCH ×2 (00:54→08:35)
[2018-11-01] MEDS: Pantoprazole 40 MG VIAL IVP SCH ×2 (06:10→16:49)
[2018-11-01 07:00] LABS: BUN/Creatinine Ratio 11 (6-26); Blood Urea Nitrogen 10 mg/dL (8-23); Calcium 6.7 mg/dL (8.6-10.3); Carbon Dioxide 19 mEq/L (23-29); Chloride 106 mEq/L (98-107); Glucose 88 mg/dL (70-105); Osmolality,Calculated 274 (280-300); Potassium 3.5 mEq/L (3.5-5.1); Sodium 133 mEq/L (136-145); eGFR For African Americans > 60 (> 60); eGFR For Non-African Americans > 60 (> 60)
[2018-11-01] MEDS: D5% in 0.9% NACL 1,000 ML IVC SCH (13:48)
[2018-11-01 14:12] LABS: Basophils % 0.4 %; Eosinophils # 0.1 K/mcL (0.0-0.6); Eosinophils % 1.5 %; Hematocrit 26.2 % (37.5-50.1); Hemoglobin 8.6 g/dL (12.9-16.9); Immature Granulocytes % 1.3 % (0-4); Lymphocytes # 0.4 K/mcL (0.6-4.6); Lymphocytes % 8.2 %; Mean Corpuscular HGB Conc 32.8 g/dL (31.6-35.5); Mean Corpuscular Hemoglobin 33.2 pg (28.0-33.3); Mean Corpuscular Volume 101.2 fL (83.0-100.0); Mean Platelet Volume 12.2 fL (9.4-12.4); Monocytes # 0.2 K/mcL (0.0-1.3); Monocytes % 3.8 %; Neutrophils # 4.5 K/mcL (1.6-8.9); Nucleated Red Blood Cells 0.4 /100 WBC (0); Platelet Count 64 K/mcL (140-400); Red Blood Count 2.59 M/mcL (4.19-5.50); Red Cell Distribution Width 20.3 % (11.5-14.5); Segmented Neutrophils % 84.8 %; White Blood Count 5.3 K/mcL (4.3-11.1)
[2018-11-01] MEDS: cefTRIAXone 2,000 MG in Water for inj. (sterile) 20 ML IVP SCH (16:49)
[2018-11-02] MEDS: MetroNIDAZOLE 500 MG/100 ML 500 MG/100 ML BAG IVPB SCH ×2 (01:02→07:49)
[2018-11-02] MEDS: DilTIAZem 50 MG in 0.9 % Sodium Chloride 40 ML IVC SCH (01:04)
[2018-11-02] MEDS: Pantoprazole 40 MG VIAL IVP SCH ×2 (05:31→16:46)
[2018-11-02] MEDS: D5% in 0.9% NACL 1,000 ML IVC SCH ×2 (05:31→16:45)
[2018-11-03] MEDS: Pantoprazole 40 MG VIAL IVP SCH ×2 (05:17→18:10)
[2018-11-03] MEDS: D5% in 0.9% NACL 1,000 ML IVC SCH ×2 (05:17→21:56)
[2018-11-04 04:18] LABS: Hemoglobin 9.2 g/dL (12.9-16.9)
[2018-11-04 04:20] LABS: Hematocrit 28.1 % (37.5-50.1); Immature Platelets 6.5 % (1.1-6.1); Mean Corpuscular HGB Conc 32.7 g/dL (31.6-35.5); Mean Corpuscular Hemoglobin 33.2 pg (28.0-33.3); Mean Corpuscular Volume 101.4 fL (83.0-100.0); Mean Platelet Volume 12.6 fL (9.4-12.4); Red Blood Count 2.77 M/mcL (4.19-5.50); Red Cell Distribution Width 21.7 % (11.5-14.5); White Blood Count 4.2 K/mcL (4.3-11.1)
[2018-11-04 04:38] LABS: BUN/Creatinine Ratio 7 (6-26); Blood Urea Nitrogen 5 mg/dL (8-23); Calcium 6.7 mg/dL (8.6-10.3); Carbon Dioxide 21 mEq/L (23-29); Chloride 112 mEq/L (98-107); Glucose 109 mg/dL (70-105); Osmolality,Calculated 286 (280-300); Potassium 3.1 mEq/L (3.5-5.1); Sodium 139 mEq/L (136-145); eGFR For African Americans > 60 (> 60); eGFR For Non-African Americans > 60 (> 60)
[2018-11-04] MEDS: Pantoprazole 40 MG VIAL IVP SCH ×2 (06:14→17:04)
[2018-11-04] MEDS: D5% in 0.9% NACL 1,000 ML IVC SCH ×2 (09:55→23:15)
[2018-11-04] MEDS: *HR* Metoprolol 5 MG/5 ML VIAL IVP SCH (17:04)
[2018-11-05] MEDS: *HR* Metoprolol 5 MG/5 ML VIAL IVP SCH ×5 (00:47→23:19)
[2018-11-05] MEDS: Pantoprazole 40 MG VIAL IVP SCH ×2 (06:12→17:17)
[2018-11-05 06:37] LABS: Hematocrit 29.1 % (37.5-50.1)
[2018-11-05 06:39] LABS: Hemoglobin 9.4 g/dL (12.9-16.9); Immature Platelets 8.5 % (1.1-6.1); Mean Corpuscular HGB Conc 32.3 g/dL (31.6-35.5); Mean Corpuscular Hemoglobin 33.1 pg (28.0-33.3); Mean Corpuscular Volume 102.5 fL (83.0-100.0); Mean Platelet Volume 11.6 fL (9.4-12.4); Red Blood Count 2.84 M/mcL (4.19-5.50); Red Cell Distribution Width 22.5 % (11.5-14.5); White Blood Count 4.2 K/mcL (4.3-11.1)
[2018-11-05 07:00] LABS: BUN/Creatinine Ratio 9 (6-26); Blood Urea Nitrogen 6 mg/dL (8-23); Calcium 6.7 mg/dL (8.6-10.3); Carbon Dioxide 22 mEq/L (23-29); Chloride 111 mEq/L (98-107); Glucose 117 mg/dL (70-105); Magnesium 1.7 mg/dL (1.6-2.6); Osmolality,Calculated 287 (280-300); Potassium 3.5 mEq/L (3.5-5.1); Sodium 139 mEq/L (136-145); eGFR For African Americans > 60 (> 60); eGFR For Non-African Americans > 60 (> 60)
[2018-11-05] MEDS: D5% in 0.9% NACL 1,000 ML IVC SCH (14:08)
[2018-11-06] MEDS: Pantoprazole 40 MG VIAL IVP SCH ×2 (06:21→17:41)
[2018-11-06] MEDS: *HR* Metoprolol 5 MG/5 ML VIAL IVP SCH ×3 (06:21→17:41)
[2018-11-06 06:34] LABS: Eosinophils # 0.2 K/mcL (0.0-0.6); Eosinophils % 5.7 %; Hematocrit 29.9 % (37.5-50.1); Hemoglobin 9.7 g/dL (12.9-16.9); Immature Granulocytes % 1.8 % (0-4); Lymphocytes # 0.9 K/mcL (0.6-4.6); Lymphocytes % 22.4 %; Mean Corpuscular HGB Conc 32.4 g/dL (31.6-35.5); Mean Corpuscular Hemoglobin 32.9 pg (28.0-33.3); Mean Corpuscular Volume 101.4 fL (83.0-100.0); Mean Platelet Volume 12.6 fL (9.4-12.4); Monocytes # 0.4 K/mcL (0.0-1.3); Neutrophils # 2.3 K/mcL (1.6-8.9); Platelet Count 128 K/mcL (140-400); Red Blood Count 2.95 M/mcL (4.19-5.50); Red Cell Distribution Width 22.7 % (11.5-14.5); Segmented Neutrophils % 59.1 %; White Blood Count 3.9 K/mcL (4.3-11.1)
[2018-11-06 06:55] LABS: Anisocytosis 2+ (Not Present); Platelet Estimate Decreased (Normal)
[2018-11-06 06:59] LABS: BUN/Creatinine Ratio 11 (6-26); Blood Urea Nitrogen 8 mg/dL (8-23); Calcium 6.8 mg/dL (8.6-10.3); Carbon Dioxide 22 mEq/L (23-29); Chloride 110 mEq/L (98-107); Glucose 99 mg/dL (70-105); Osmolality,Calculated 286 (280-300); Potassium 3.6 mEq/L (3.5-5.1); Sodium 139 mEq/L (136-145); eGFR For African Americans > 60 (> 60); eGFR For Non-African Americans > 60 (> 60)
[2018-11-06 07:00] LABS: % Iron Saturation 19 % (20-55); Iron 37 mcg/dL (65-175); Transferrin 139 mg/dL (203-362)
[2018-11-06 07:14] LABS: Ferritin 187 ng/mL (20-250)
[2018-11-06 08:26] LABS: VBG Ionized Calcium 1.01 mmol/L (1.15-1.35)
[2018-11-07] MEDS: *HR* Metoprolol 5 MG/5 ML VIAL IVP SCH ×3 (00:56→11:49)
[2018-11-07] MEDS: Pantoprazole 40 MG VIAL IVP SCH ×2 (05:35→17:31)
[2018-11-07] MEDS ORDERED: Lidocaine -MPF 2% 2 ML VIAL ONE ×2 (08:18→09:30)
[2018-11-07] MEDS ORDERED: Propofol 500 MG/50 ML INFUS..BTL ONE (08:18)
[2018-11-07] MEDS ORDERED: *HR* FentaNYL (PF) 100 MCG/2 ML VIAL ONE (08:43)
[2018-11-07] MEDS ORDERED: *HR* PHENYLEPHRINE 1,000 MCG/10 ML SYRINGE IVP ONE (08:54)
[2018-11-07] MEDS ORDERED: Acetaminophen IV 500 MG/50 ML INFUS..BTL IVPB STA (15:11)
[2018-11-07] MEDS: Ciprofloxacin HCL Soln 5 ML BOTTLE RIGHT EYE SCH ×2 (17:31→20:22)
[2018-11-07] MEDS ORDERED: *HR* Metoprolol 5 MG/5 ML VIAL IVP ONE (18:47)
[2018-11-07] MEDS ORDERED: Ketorolac 15 MG/ML VIAL IVP ONE (18:49)
[2018-11-07] MEDS ORDERED: 0.9 % Sodium Chloride 1,000 ML IVC SCH (19:00)
[2018-11-07] MEDS: Lactobacillus 1 EACH CAP.SPRINK GTUBE SCH (20:21)
[2018-11-08] MEDS: Ciprofloxacin HCL Soln 5 ML BOTTLE RIGHT EYE SCH ×7 (01:07→22:43)
[2018-11-08] MEDS: Pantoprazole 40 MG VIAL IVP SCH (06:25)
[2018-11-08 06:41] LABS: Hematocrit 31.9 % (37.5-50.1); Hemoglobin 10.1 g/dL (12.9-16.9)
[2018-11-08 07:05] LABS: BUN/Creatinine Ratio 19 (6-26); Blood Urea Nitrogen 18 mg/dL (8-23); Calcium 6.9 mg/dL (8.6-10.3); Carbon Dioxide 23 mEq/L (23-29); Chloride 111 mEq/L (98-107); Glucose 107 mg/dL (70-105); Osmolality,Calculated 286 (280-300); Sodium 137 mEq/L (136-145); eGFR For African Americans > 60 (> 60); eGFR For Non-African Americans > 60 (> 60)
[2018-11-08] MEDS ORDERED: Calcium Gluconate 1gm/50mL 1 GM/50 ML BAG IVPB ONE (07:30)
[2018-11-08] MEDS: Lactobacillus 1 EACH CAP.SPRINK GTUBE SCH ×2 (09:25→20:11)
[2018-11-08] MEDS: Cyanocobalamin (B-12) 1,000 MCG TABLET GTUBE SCH (09:25)
[2018-11-08] MEDS: Folic Acid 1 MG TABLET GTUBE SCH (09:25)
[2018-11-08] MEDS: Cholecalciferol (D-3) 1,000 UNIT (25MCG) TABLET PO SCH (09:26)
[2018-11-08 15:59] LABS: Bacteria,Urine None Seen per hpf (None-Few); Bilirubin,Urine Negative (Negative); Blood,Urine Negative (Negative); Clarity,Urine Clear (Clear); Color,Urine Yellow (Yellow); Glucose,Urine (UA) Normal (Normal); Hyaline Casts,Urine None Seen per lpf (None-Few); Ketones,Urine Negative (Negative); Leukocyte Esterase,Urine Small (Negative); Nitrite,Urine Negative (Negative); PH,Urine 7.5 pH Units (5.0-8.0); Protein,Urine Trace mg/dL (Neg-Trace); Specific Gravity,Urine 1.016 (1.010-1.025); Squamous Epithelial Cell,Urine Moderate per lpf (None-Few); Urobilinogen,Urine Normal (Normal); WBC,Urine 0-3 per hpf (0-3)
[2018-11-08] MEDS ORDERED: cefTRIAXone 1,000 MG in Water for inj. (sterile) 10 ML IVP SCH (17:00)
[2018-11-09] MEDS: Ciprofloxacin HCL Soln 5 ML BOTTLE RIGHT EYE SCH ×6 (03:39→23:23)
[2018-11-09 06:53] LABS: BUN/Creatinine Ratio 20 (6-26); Blood Urea Nitrogen 16 mg/dL (8-23); Carbon Dioxide 23 mEq/L (23-29); Chloride 109 mEq/L (98-107); Glucose 118 mg/dL (70-105); Osmolality,Calculated 288 (280-300); Potassium 3.9 mEq/L (3.5-5.1); Sodium 138 mEq/L (136-145); eGFR For African Americans > 60 (> 60); eGFR For Non-African Americans > 60 (> 60)
[2018-11-09] MEDS: Folic Acid 1 MG TABLET GTUBE SCH (08:58)
[2018-11-09] MEDS: Lactobacillus 1 EACH CAP.SPRINK GTUBE SCH ×2 (08:58→20:07)
[2018-11-09] MEDS: Cholecalciferol (D-3) 1,000 UNIT (25MCG) TABLET PO SCH (08:58)
[2018-11-09] MEDS: Cyanocobalamin (B-12) 1,000 MCG TABLET GTUBE SCH (08:58)
[2018-11-09] MEDS: Nystatin POWDER 30 GM BOTTLE TP SCH ×2 (16:29→20:07)
[2018-11-10] MEDS: Ciprofloxacin HCL Soln 5 ML BOTTLE RIGHT EYE SCH ×3 (04:36→12:50)
[2018-11-10] MEDS: Cyanocobalamin (B-12) 1,000 MCG TABLET GTUBE SCH (08:25)
[2018-11-10] MEDS: Folic Acid 1 MG TABLET GTUBE SCH (08:26)
[2018-11-10] MEDS: Lactobacillus 1 EACH CAP.SPRINK GTUBE SCH (08:26)
[2018-11-10] MEDS: Cholecalciferol (D-3) 1,000 UNIT (25MCG) TABLET PO SCH (08:26)
[2018-11-10] MEDS: Nystatin POWDER 30 GM BOTTLE TP SCH (08:49)
[2018-11-10] MEDS ORDERED: Aspirin 81 MG TAB.CHEW PO SCH (09:15)
[2018-11-10 11:41] VITALS: BP 97/68
[2018-11-10] MEDS ORDERED: Nystatin SUSP 5 ML UD.LIQ PO SCH (13:00)
== END 2018-11-10 16:53 | DRG 177 ==
LOC: 2NENU 11:46 → EMEROOARM 11:46 → SUATTDRO 16:04 → 2NENU 17:44 → SUATTDRO 10-30 12:20
PROVIDERS: ADMIT Internal Medicine; ATTEND Internal Medicine

== ENCOUNTER 2018-11-18 22:21 | Inpatient (IN) ==
[2018-11-18] MEDS ORDERED: 0.9 % Sodium Chloride 1,000 ML IVC ONE ×2 (22:34→22:56)
[2018-11-18] MEDS ORDERED: Isovue-370 500 ML BOTTLE IVP ONE (22:35)
[2018-11-18] MEDS ORDERED: 0.9 % Sodium Chloride 250 ML IVC ONE (22:56)
[2018-11-18] MEDS ORDERED: 0.9 % Sodium Chloride 250 ML ONE (23:00)
[2018-11-18] MEDS ORDERED: *HR* Norepinephrine 4 MG/4 ML VIAL IVC ONE (23:00)
[2018-11-18] MEDS ORDERED: 0.9 % Sodium Chloride 1,000 ML IVC SCH (23:15)
[2018-11-18 23:16] LABS: Basophils # 0.1 K/mcL (0.0-0.2); Basophils % 1.2 %; Eosinophils # 0.1 K/mcL (0.0-0.6); Eosinophils % 1.8 %; Hematocrit 30.3 % (37.5-50.1); Hemoglobin 9.7 g/dL (12.9-16.9); Immature Granulocytes % 2.2 % (0-4); Lymphocytes % 12.7 %; Mean Corpuscular Hemoglobin 33.2 pg (28.0-33.3); Mean Corpuscular Volume 103.8 fL (83.0-100.0); Mean Platelet Volume 12.4 fL (9.4-12.4); Monocytes # 1.6 K/mcL (0.0-1.3); Monocytes % 20.1 %; Neutrophils # 4.8 K/mcL (1.6-8.9); Platelet Count 203 K/mcL (140-400); Red Blood Count 2.92 M/mcL (4.19-5.50); Red Cell Distribution Width 20.1 % (11.5-14.5); White Blood Count 7.8 K/mcL (4.3-11.1)
[2018-11-18 23:19] LABS: VBG HCO3 25 mEq/L (21-27); VBG PCO2 37 mmHg (41-51); VBG PH 7.43 pH Units (7.32-7.42); VBG PO2 96 mmHg (25-50)
[2018-11-18 23:24] LABS: INR 1.4; Prothrombin Time 16.1 Seconds (9.4-12.1)
[2018-11-18 23:26] LABS: Activated Partial Thrombo Time 36.9 Seconds (26.0-36.0)
[2018-11-18] MEDS ORDERED: levoFLOXacin 750 MG/150 ML 750 MG/150 ML BAG IVPB ONE (23:30)
[2018-11-18] MEDS ORDERED: Piperacillin/Tazobactam 3.375 GM in 0.9 % Sodium Chloride Mini Bag 100 ML IVPB ONE (23:30)
[2018-11-18 23:37] LABS: Alanine Aminotransferase 8 Units/L (7-52); Albumin 2.8 g/dL (3.5-5.7); Albumin/Globulin Ratio 1.3 (1.1-2.2); Alkaline Phosphatase 67 Units/L (34-104); Aspartate Amino Transferase 17 Units/L (13-39); BUN/Creatinine Ratio 24 (6-26); Bilirubin,Direct 0.3 mg/dL (0.0-0.2); Bilirubin,Indirect 0.5 mg/dL (0.0-1.2); Bilirubin,Total 0.8 mg/dL (0.3-1.0); Blood Urea Nitrogen 29 mg/dL (8-23); Calcium 7.7 mg/dL (8.6-10.3); Carbon Dioxide 24 mEq/L (23-29); Chloride 107 mEq/L (98-107); Globulin 2.1 g/dL (2.4-3.5); Glucose 91 mg/dL (70-105); Magnesium 2.1 mg/dL (1.6-2.6); Osmolality,Calculated 291 (280-300); Phosphorous 2.9 mg/dL (2.7-4.5); Potassium 3.9 mEq/L (3.5-5.1); Sodium 138 mEq/L (136-145); Total Protein 4.9 g/dL (6.4-8.9); eGFR For African Americans > 60 (> 60); eGFR For Non-African Americans 56 (> 60)
[2018-11-18 23:38] LABS: Troponin I < 0.03 ng/mL (< 0.04)
[2018-11-19 00:24] LABS: Anisocytosis 2+ (Not Present); Hypochromasia Present (Not Present); Platelet Estimate Normal (Normal)
[2018-11-19] MEDS ORDERED: 0.9 % Sodium Chloride 1,000 ML IVC ONE (00:50)
[2018-11-19] MEDS: 0.9 % Sodium Chloride 1,000 ML IVC SCH ×5 (01:01→20:36)
[2018-11-19] MEDS: Norepinephrine 4 MG in 0.9 % Sodium Chloride 250 ML IVC SCH ×2 (01:33→23:25)
[2018-11-19 02:38] LABS: Bilirubin,Urine Negative (Negative); Blood,Urine Negative (Negative); Clarity,Urine Clear (Clear); Color,Urine Yellow (Yellow); Glucose,Urine (UA) Normal (Normal); Ketones,Urine Negative (Negative); Leukocyte Esterase,Urine Negative (Negative); Nitrite,Urine Negative (Negative); PH,Urine 7.5 pH Units (5.0-8.0); Protein,Urine Trace mg/dL (Neg-Trace); Specific Gravity,Urine > 1.030 (1.010-1.025); Urobilinogen,Urine Normal (Normal)
[2018-11-19] MEDS ORDERED: Naloxone 0.4 MG/ML INJ IVP PRN (04:21)
[2018-11-19] MEDS ORDERED: Vancomycin 500 MG in 0.9 % Sodium Chloride Mini Bag 100 ML IVPB ONE (05:09)
[2018-11-19] MEDS ORDERED: Ipratropium/Albuterol Neb 3 ML ONE (05:14)
[2018-11-19] MEDS: Ipratropium/Albuterol Neb 3 ML IH SCH ×4 (05:16→21:51)
[2018-11-19] MEDS ORDERED: MetroNIDAZOLE 500 MG/100 ML 500 MG/100 ML BAG IVPB SCH (06:00)
[2018-11-19 06:14] LABS: Basophils # 0.1 K/mcL (0.0-0.2); Basophils % 1.1 %; Eosinophils # 0.1 K/mcL (0.0-0.6); Eosinophils % 1.7 %; Hematocrit 29.9 % (37.5-50.1); Hemoglobin 9.4 g/dL (12.9-16.9); Immature Granulocytes % 2.7 % (0-4); Lymphocytes # 1.1 K/mcL (0.6-4.6); Lymphocytes % 13.2 %; Mean Corpuscular HGB Conc 31.4 g/dL (31.6-35.5); Mean Corpuscular Volume 104.9 fL (83.0-100.0); Mean Platelet Volume 12.1 fL (9.4-12.4); Monocytes # 1.1 K/mcL (0.0-1.3); Monocytes % 13.5 %; Neutrophils # 5.6 K/mcL (1.6-8.9); Platelet Count 220 K/mcL (140-400); Red Blood Count 2.85 M/mcL (4.19-5.50); Red Cell Distribution Width 20.2 % (11.5-14.5); Segmented Neutrophils % 67.8 %; White Blood Count 8.2 K/mcL (4.3-11.1)
[2018-11-19 06:28] LABS: BUN/Creatinine Ratio 22 (6-26); Blood Urea Nitrogen 24 mg/dL (8-23); Calcium 7.2 mg/dL (8.6-10.3); Carbon Dioxide 21 mEq/L (23-29); Chloride 110 mEq/L (98-107); Glucose 86 mg/dL (70-105); Osmolality,Calculated 293 (280-300); Potassium 3.8 mEq/L (3.5-5.1); Sodium 140 mEq/L (136-145); eGFR For African Americans > 60 (> 60); eGFR For Non-African Americans > 60 (> 60)
[2018-11-19] MEDS ORDERED: Aminoglycoside Consult 1 EACH MC ONE (08:33)
[2018-11-19] MEDS: Pantoprazole 40 MG VIAL IVP SCH (08:43)
[2018-11-19] MEDS: Cyanocobalamin (B-12) 1,000 MCG TABLET PO SCH ×2 (08:56→10:45)
[2018-11-19] MEDS: Nystatin SUSP 5 ML UD.LIQ BC SCH ×4 (08:56→20:36)
[2018-11-19] MEDS: Nystatin POWDER 30 GM BOTTLE TP SCH ×3 (09:03→20:36)
[2018-11-19] MEDS: Piperacillin/Tazobactam 3.375 GM in 0.9 % Sodium Chloride Mini Bag 100 ML IVPB SCH ×3 (09:14→23:24)
[2018-11-19] MEDS: Acetylcysteine 10% 2 ML INHSOL IH SCH ×4 (10:42→21:51)
[2018-11-19] MEDS ORDERED: *HR* Dextrose 50 % in Water (Syg) 50 ML SYRINGE IVP PRN (11:09)
[2018-11-19] MEDS ORDERED: D5% in Water 1,000 ML IVC PRN (11:09)
[2018-11-19] MEDS ORDERED: Dextrose Gel 15 GM/37.5 ML TUBE PO PRN ×2 (11:09)
[2018-11-19] MEDS ORDERED: Piperacillin/Tazobactam 3.375 GM VIAL ONE (16:19)
[2018-11-20] MEDS ORDERED: hydrOXYzine pamoate 25 MG CAPSULE PO PRN ×2 (00:15→18:48)
[2018-11-20] MEDS: Acetylcysteine 10% 2 ML INHSOL IH SCH ×4 (03:52→22:34)
[2018-11-20] MEDS: Ipratropium/Albuterol Neb 3 ML IH SCH ×4 (03:52→22:33)
[2018-11-20] MEDS ORDERED: *HR* FentaNYL (PF) 100 MCG/2 ML VIAL IVP ONE (04:04)
[2018-11-20] MEDS: 0.9 % Sodium Chloride 1,000 ML IVC SCH ×2 (04:14→15:24)
[2018-11-20] MEDS ORDERED: *HR* LORazepam 2 MG/ML VIAL IVP ONE (04:42)
[2018-11-20] MEDS ORDERED: *HR* LORazepam 2 MG/ML VIAL ONE (04:46)
[2018-11-20] MEDS: Nystatin SUSP 5 ML UD.LIQ BC SCH ×5 (08:28→22:07)
[2018-11-20] MEDS: Cyanocobalamin (B-12) 1,000 MCG TABLET PO SCH (08:28)
[2018-11-20] MEDS: Piperacillin/Tazobactam 3.375 GM in 0.9 % Sodium Chloride Mini Bag 100 ML IVPB SCH ×2 (08:28→15:48)
[2018-11-20] MEDS: Pantoprazole 40 MG VIAL IVP SCH (08:28)
[2018-11-20] MEDS: Nystatin POWDER 30 GM BOTTLE TP SCH ×3 (08:29→22:21)
[2018-11-20] MEDS: Folic Acid 1 MG TABLET GTUBE SCH (12:38)
[2018-11-20] MEDS ORDERED: *HR* Dextrose 50 % in Water (Syg) 50 ML SYRINGE IVP PRN (18:48)
[2018-11-20] MEDS ORDERED: Naloxone 0.4 MG/ML INJ IVP PRN (18:48)
[2018-11-20] MEDS ORDERED: Dextrose Gel 15 GM/37.5 ML TUBE PO PRN ×2 (18:48)
[2018-11-20] MEDS ORDERED: D5% in Water 1,000 ML IVC PRN (18:48)
[2018-11-21] MEDS: Piperacillin/Tazobactam 3.375 GM in 0.9 % Sodium Chloride Mini Bag 100 ML IVPB SCH ×3 (00:06→15:34)
[2018-11-21] MEDS: Ipratropium/Albuterol Neb 3 ML IH SCH ×4 (04:11→22:56)
[2018-11-21] MEDS: Acetylcysteine 10% 2 ML INHSOL IH SCH ×4 (04:12→22:56)
[2018-11-21 07:22] LABS: Basophils # 0.1 K/mcL (0.0-0.2); Basophils % 0.8 %; Eosinophils # 0.1 K/mcL (0.0-0.6); Eosinophils % 2.2 %; Hematocrit 28.3 % (37.5-50.1); Hemoglobin 8.8 g/dL (12.9-16.9); Immature Granulocytes % 1.2 % (0-4); Lymphocytes # 0.7 K/mcL (0.6-4.6); Lymphocytes % 11.1 %; Mean Corpuscular HGB Conc 31.1 g/dL (31.6-35.5); Mean Corpuscular Hemoglobin 33.1 pg (28.0-33.3); Mean Corpuscular Volume 106.4 fL (83.0-100.0); Mean Platelet Volume 12.5 fL (9.4-12.4); Monocytes # 0.5 K/mcL (0.0-1.3); Monocytes % 8.8 %; Neutrophils # 4.6 K/mcL (1.6-8.9); Platelet Count 161 K/mcL (140-400); Red Blood Count 2.66 M/mcL (4.19-5.50); Red Cell Distribution Width 20.3 % (11.5-14.5); Segmented Neutrophils % 75.9 %
[2018-11-21 07:53] LABS: VBG HCO3 19 mEq/L (21-27); VBG PCO2 41 mmHg (41-51); VBG PH 7.28 pH Units (7.32-7.42); VBG PO2 46 mmHg (25-50)
[2018-11-21] MEDS: Nystatin SUSP 5 ML UD.LIQ BC SCH ×4 (08:43→20:59)
[2018-11-21] MEDS: Folic Acid 1 MG TABLET GTUBE SCH (08:43)
[2018-11-21] MEDS: Cyanocobalamin (B-12) 1,000 MCG TABLET GTUBE SCH (08:43)
[2018-11-21] MEDS: Nystatin POWDER 30 GM BOTTLE TP SCH ×3 (08:44→21:00)
[2018-11-21 08:49] LABS: BUN/Creatinine Ratio 14 (6-26); Blood Urea Nitrogen 13 mg/dL (8-23); Calcium 6.7 mg/dL (8.6-10.3); Carbon Dioxide 18 mEq/L (23-29); Chloride 112 mEq/L (98-107); Glucose 108 mg/dL (70-105); Osmolality,Calculated 293 (280-300); Potassium 3.7 mEq/L (3.5-5.1); Sodium 141 mEq/L (136-145); eGFR For African Americans > 60 (> 60); eGFR For Non-African Americans > 60 (> 60)
[2018-11-21] MEDS ORDERED: Pantoprazole 40 MG VIAL IVP SCH (09:00)
[2018-11-21] MEDS ORDERED: Calcium Gluconate 1gm/50mL 1 GM/50 ML BAG IVPB ONE (09:59)
[2018-11-21] MEDS: MethylPREDNISolone 40 MG/ML VIAL IVP SCH (18:08)
[2018-11-22] MEDS: Piperacillin/Tazobactam 3.375 GM in 0.9 % Sodium Chloride Mini Bag 100 ML IVPB SCH ×3 (00:11→16:38)
[2018-11-22] MEDS: Acetylcysteine 10% 2 ML INHSOL IH SCH ×4 (03:29→22:17)
[2018-11-22] MEDS: Ipratropium/Albuterol Neb 3 ML IH SCH ×4 (03:29→22:17)
[2018-11-22 07:14] LABS: Basophils % 0.3 %; Hematocrit 28.4 % (37.5-50.1); Hemoglobin 8.8 g/dL (12.9-16.9); Immature Granulocytes % 1.9 % (0-4); Lymphocytes # 0.2 K/mcL (0.6-4.6); Lymphocytes % 6.6 %; Mean Corpuscular Hemoglobin 32.8 pg (28.0-33.3); Mean Platelet Volume 12.4 fL (9.4-12.4); Monocytes # 0.1 K/mcL (0.0-1.3); Monocytes % 2.8 %; Neutrophils # 2.8 K/mcL (1.6-8.9); Platelet Count 158 K/mcL (140-400); Red Blood Count 2.68 M/mcL (4.19-5.50); Red Cell Distribution Width 19.9 % (11.5-14.5); Segmented Neutrophils % 88.4 %; White Blood Count 3.2 K/mcL (4.3-11.1)
[2018-11-22 07:36] LABS: BUN/Creatinine Ratio 14 (6-26); Blood Urea Nitrogen 13 mg/dL (8-23); Calcium 7.1 mg/dL (8.6-10.3); Carbon Dioxide 19 mEq/L (23-29); Chloride 113 mEq/L (98-107); Glucose 252 mg/dL (70-105); Osmolality,Calculated 301 (280-300); Phosphorous 1.5 mg/dL (2.7-4.5); Potassium 3.9 mEq/L (3.5-5.1); Sodium 141 mEq/L (136-145); eGFR For African Americans > 60 (> 60); eGFR For Non-African Americans > 60 (> 60)
[2018-11-22] MEDS ORDERED: Calcium Gluconate 1gm/50mL 1 GM/50 ML BAG IVPB ONE (07:38)
[2018-11-22] MEDS: MethylPREDNISolone 40 MG/ML VIAL IVP SCH (08:01)
[2018-11-22] MEDS: Nystatin SUSP 5 ML UD.LIQ BC SCH ×4 (08:01→20:57)
[2018-11-22] MEDS: Cyanocobalamin (B-12) 1,000 MCG TABLET GTUBE SCH (08:02)
[2018-11-22] MEDS: Folic Acid 1 MG TABLET GTUBE SCH (08:02)
[2018-11-22] MEDS: Nystatin POWDER 30 GM BOTTLE TP SCH ×3 (08:03→20:57)
[2018-11-23] MEDS ORDERED: hydrOXYzine pamoate 25 MG CAPSULE PO PRN (00:31)
[2018-11-23] MEDS: Piperacillin/Tazobactam 3.375 GM in 0.9 % Sodium Chloride Mini Bag 100 ML IVPB SCH ×3 (00:37→16:40)
[2018-11-23 02:21] LABS: Basophils % 0.1 %; Hematocrit 28.1 % (37.5-50.1); Hemoglobin 8.7 g/dL (12.9-16.9); Immature Granulocytes % 1.7 % (0-4); Lymphocytes # 0.6 K/mcL (0.6-4.6); Lymphocytes % 8.1 %; Mean Corpuscular Hemoglobin 32.3 pg (28.0-33.3); Mean Corpuscular Volume 104.5 fL (83.0-100.0); Mean Platelet Volume 12.5 fL (9.4-12.4); Monocytes # 0.5 K/mcL (0.0-1.3); Monocytes % 6.2 %; Neutrophils # 6.4 K/mcL (1.6-8.9); Platelet Count 183 K/mcL (140-400); Red Blood Count 2.69 M/mcL (4.19-5.50); Red Cell Distribution Width 19.9 % (11.5-14.5); Segmented Neutrophils % 83.9 %; White Blood Count 7.6 K/mcL (4.3-11.1)
[2018-11-23 02:41] LABS: BUN/Creatinine Ratio 18 (6-26); Blood Urea Nitrogen 16 mg/dL (8-23); Calcium 7.2 mg/dL (8.6-10.3); Carbon Dioxide 22 mEq/L (23-29); Chloride 114 mEq/L (98-107); Glucose 152 mg/dL (70-105); Magnesium 2.1 mg/dL (1.6-2.6); Osmolality,Calculated 300 (280-300); Phosphorous 1.8 mg/dL (2.7-4.5); Potassium 3.9 mEq/L (3.5-5.1); Sodium 143 mEq/L (136-145); eGFR For African Americans > 60 (> 60); eGFR For Non-African Americans > 60 (> 60)
[2018-11-23] MEDS: Ipratropium/Albuterol Neb 3 ML IH SCH ×4 (03:38→19:49)
[2018-11-23] MEDS: Acetylcysteine 10% 2 ML INHSOL IH SCH ×4 (03:38→19:49)
[2018-11-23] MEDS: Nystatin SUSP 5 ML UD.LIQ BC SCH ×4 (08:55→21:39)
[2018-11-23] MEDS: MethylPREDNISolone 40 MG/ML VIAL IVP SCH (08:55)
[2018-11-23] MEDS: Folic Acid 1 MG TABLET GTUBE SCH (08:55)
[2018-11-23] MEDS: Cyanocobalamin (B-12) 1,000 MCG TABLET GTUBE SCH (08:55)
[2018-11-23] MEDS: Nystatin POWDER 30 GM BOTTLE TP SCH ×3 (12:38→21:39)
[2018-11-23] MEDS: Ferrous Sulfate Oral Soln 300 MG/5 ML UDC GTUBE SCH (12:43)
[2018-11-24] MEDS: Piperacillin/Tazobactam 3.375 GM in 0.9 % Sodium Chloride Mini Bag 100 ML IVPB SCH ×2 (00:29→08:16)
[2018-11-24] MEDS: Ipratropium/Albuterol Neb 3 ML IH SCH ×2 (03:12→10:48)
[2018-11-24] MEDS: Acetylcysteine 10% 2 ML INHSOL IH SCH ×2 (03:13→10:48)
[2018-11-24 04:55] LABS: Basophils % 0.1 %; Hematocrit 28.5 % (37.5-50.1); Hemoglobin 8.7 g/dL (12.9-16.9); Immature Granulocytes % 1.9 % (0-4); Lymphocytes # 0.5 K/mcL (0.6-4.6); Lymphocytes % 4.9 %; Mean Corpuscular HGB Conc 30.5 g/dL (31.6-35.5); Mean Corpuscular Hemoglobin 32.5 pg (28.0-33.3); Mean Corpuscular Volume 106.3 fL (83.0-100.0); Mean Platelet Volume 11.5 fL (9.4-12.4); Monocytes # 0.4 K/mcL (0.0-1.3); Monocytes % 4.5 %; Neutrophils # 8.4 K/mcL (1.6-8.9); Platelet Count 169 K/mcL (140-400); Red Blood Count 2.68 M/mcL (4.19-5.50); Segmented Neutrophils % 88.6 %; White Blood Count 9.5 K/mcL (4.3-11.1)
[2018-11-24 05:16] LABS: BUN/Creatinine Ratio 24 (6-26); Blood Urea Nitrogen 20 mg/dL (8-23); Calcium 7.3 mg/dL (8.6-10.3); Carbon Dioxide 21 mEq/L (23-29); Chloride 115 mEq/L (98-107); Glucose 155 mg/dL (70-105); Magnesium 2.2 mg/dL (1.6-2.6); Osmolality,Calculated 304 (280-300); Phosphorous 1.6 mg/dL (2.7-4.5); Potassium 4.3 mEq/L (3.5-5.1); Sodium 144 mEq/L (136-145); eGFR For African Americans > 60 (> 60); eGFR For Non-African Americans > 60 (> 60)
[2018-11-24 07:26] VITALS: BP 108/76
[2018-11-24] MEDS: Cyanocobalamin (B-12) 1,000 MCG TABLET GTUBE SCH (08:17)
[2018-11-24] MEDS: Folic Acid 1 MG TABLET GTUBE SCH (08:17)
[2018-11-24] MEDS: Ferrous Sulfate Oral Soln 300 MG/5 ML UDC GTUBE SCH (08:18)
[2018-11-24] MEDS: Nystatin SUSP 5 ML UD.LIQ BC SCH ×2 (08:18→12:03)
[2018-11-24] MEDS: MethylPREDNISolone 40 MG/ML VIAL IVP SCH (08:18)
[2018-11-24] MEDS: Nystatin POWDER 30 GM BOTTLE TP SCH (11:05)
== END 2018-11-24 15:45 | disposition home health service (06) | DRG 871 ==
LOC: EMEROOARM 22:21 → ICNU 22:21 → SUATTDRO 11-19 04:55 → 2NENU 11-20 17:07
PROVIDERS: ADMIT Family Medicine; ATTEND Internal Medicine

== ENCOUNTER 2019-01-13 10:26 | Inpatient (IN) ==
[2019-01-13] MEDS ORDERED: 0.9 % Sodium Chloride 1,000 ML IVC ONE (10:36)
[2019-01-13 11:05] LABS: Basophils # 0.1 K/mcL (0.0-0.2); Basophils % 0.5 %; Eosinophils # 0.1 K/mcL (0.0-0.6); Hematocrit 25.4 % (37.5-50.1); Immature Granulocytes % 0.6 % (0-4); Lymphocytes % 9.8 %; Mean Corpuscular HGB Conc 31.5 g/dL (31.6-35.5); Mean Corpuscular Hemoglobin 32.8 pg (28.0-33.3); Mean Corpuscular Volume 104.1 fL (83.0-100.0); Mean Platelet Volume 12.8 fL (9.4-12.4); Monocytes # 0.8 K/mcL (0.0-1.3); Monocytes % 7.7 %; Neutrophils # 8.3 K/mcL (1.6-8.9); Platelet Count 159 K/mcL (140-400); Red Blood Count 2.44 M/mcL (4.19-5.50); Red Cell Distribution Width 17.9 % (11.5-14.5); Segmented Neutrophils % 80.4 %; White Blood Count 10.4 K/mcL (4.3-11.1)
[2019-01-13 11:19] LABS: INR 2.1; Prothrombin Time 23.8 Seconds (9.4-12.1)
[2019-01-13 11:21] LABS: Activated Partial Thrombo Time 37.1 Seconds (26.0-36.0)
[2019-01-13 11:27] LABS: Alanine Aminotransferase 21 Units/L (7-52); Albumin 3.3 g/dL (3.5-5.7); Albumin/Globulin Ratio 1.3 (1.1-2.2); Alkaline Phosphatase 78 Units/L (34-104); Aspartate Amino Transferase 31 Units/L (13-39); BUN/Creatinine Ratio 45 (6-26); Bilirubin,Direct 0.1 mg/dL (0.0-0.2); Bilirubin,Indirect 0.5 mg/dL (0.0-1.2); Bilirubin,Total 0.6 mg/dL (0.3-1.0); Blood Urea Nitrogen 35 mg/dL (8-23); Calcium 8.7 mg/dL (8.6-10.3); Carbon Dioxide 26 mEq/L (23-29); Chloride 103 mEq/L (98-107); Globulin 2.6 g/dL (2.4-3.5); Glucose 88 mg/dL (70-105); Osmolality,Calculated 287 (280-300); Phosphorous 3.6 mg/dL (2.7-4.5); Potassium 4.9 mEq/L (3.5-5.1); Sodium 135 mEq/L (136-145); Total Protein 5.9 g/dL (6.4-8.9); Troponin I < 0.03 ng/mL (< 0.04); eGFR For African Americans > 60 (> 60); eGFR For Non-African Americans > 60 (> 60)
[2019-01-13 13:16] LABS: Bilirubin,Urine Negative (Negative); Blood,Urine Negative (Negative); Clarity,Urine Clear (Clear); Color,Urine Yellow (Yellow); Glucose,Urine (UA) Normal (Normal); Ketones,Urine Negative (Negative); Leukocyte Esterase,Urine Negative (Negative); Nitrite,Urine Negative (Negative); PH,Urine 7.5 pH Units (5.0-8.0); Protein,Urine Negative (Neg-Trace); Urobilinogen,Urine Normal (Normal)
[2019-01-13] MEDS ORDERED: Naloxone 0.4 MG/ML INJ IVP PRN ×2 (15:10→15:12)
[2019-01-13] MEDS ORDERED: Acetaminophen 325 MG TABLET PO PRN (15:12)
[2019-01-13] MEDS ORDERED: Ondansetron ODT 4 MG TAB.RAPDIS SL PRN (15:12)
[2019-01-13] MEDS: Piperacillin/Tazobactam 3.375 GM in 0.9 % Sodium Chloride Mini Bag 100 ML IVPB SCH ×2 (17:53→23:08)
[2019-01-13] MEDS: 0.9 % Sodium Chloride 1,000 ML IVC SCH (18:02)
[2019-01-14 03:59] LABS: Basophils % 0.4 %; Eosinophils # 0.1 K/mcL (0.0-0.6); Eosinophils % 0.7 %; Hematocrit 22.9 % (37.5-50.1); Hemoglobin 7.2 g/dL (12.9-16.9); Immature Granulocytes % 0.6 % (0-4); Lymphocytes # 0.7 K/mcL (0.6-4.6); Lymphocytes % 8.1 %; Mean Corpuscular HGB Conc 31.4 g/dL (31.6-35.5); Monocytes # 0.6 K/mcL (0.0-1.3); Monocytes % 6.3 %; Neutrophils # 7.6 K/mcL (1.6-8.9); Platelet Count 139 K/mcL (140-400); Red Blood Count 2.18 M/mcL (4.19-5.50); Segmented Neutrophils % 83.9 %
[2019-01-14 04:15] LABS: BUN/Creatinine Ratio 37 (6-26); Blood Urea Nitrogen 29 mg/dL (8-23); Calcium 7.9 mg/dL (8.6-10.3); Carbon Dioxide 21 mEq/L (23-29); Chloride 110 mEq/L (98-107); Glucose 61 mg/dL (70-105); Osmolality,Calculated 288 (280-300); Potassium 4.5 mEq/L (3.5-5.1); Sodium 137 mEq/L (136-145); eGFR For African Americans > 60 (> 60); eGFR For Non-African Americans > 60 (> 60)
[2019-01-14] MEDS: 0.9 % Sodium Chloride 1,000 ML IVC SCH (06:00)
[2019-01-14] MEDS ORDERED: D5% in Water 1,000 ML IVC PRN (07:48)
[2019-01-14] MEDS ORDERED: Dextrose Gel 15 GM/37.5 ML TUBE PO PRN ×2 (07:48)
[2019-01-14 08:18] LABS: Enterococcus by PCR DETECTED (Not Detect); vanA/B Vancomycin-Resist Genes DETECTED (Not Detect)
[2019-01-14 08:19] LABS: Acinetobacter baumannii by PCR Not Detected (Not Detect); Candida albicans by PCR Not Detected (Not Detect); Candida glabrata by PCR Not Detected (Not Detect); Candida krusei by PCR Not Detected (Not Detect); Candida parapsilosis by PCR Not Detected (Not Detect); Candida tropicalis by PCR Not Detected (Not Detect); Enterobacter cloacae Cmplx PCR Not Detected (Not Detect); Enterobacteriaceae by PCR Not Detected (Not Detect); Escherichia coli by PCR Not Detected (Not Detect); Klebsiella oxytoca by PCR Not Detected (Not Detect); Klebsiella pneumoniae by PCR Not Detected (Not Detect); Proteus by PCR Not Detected (Not Detect); Pseudomonas aeruginosa by PCR Not Detected (Not Detect); Serratia marcescens by PCR Not Detected (Not Detect); Staphylococcus aureus by PCR Not Detected (Not Detect); Staphylococcus by PCR Not Detected (Not Detect); Streptococcus agalactiae(B)PCR Not Detected (Not Detect); Streptococcus by PCR Not Detected (Not Detect); Streptococcus pneumoniae PCR Not Detected (Not Detect); Streptococcus pyogenes (A) PCR Not Detected (Not Detect)
[2019-01-14] MEDS ORDERED: 0.9 % Sodium Chloride 250 ML IVC SCH (08:45)
[2019-01-14] MEDS: Piperacillin/Tazobactam 3.375 GM in 0.9 % Sodium Chloride Mini Bag 100 ML IVPB SCH ×3 (09:59→23:47)
[2019-01-14] MEDS ORDERED: Isovue-370 500 ML BOTTLE IVP ONE (12:07)
[2019-01-14] MEDS: D5% in Lactated Ringers 1,000 ML IVC SCH ×2 (12:39→23:47)
[2019-01-14] MEDS: Insulin LISPRO 300 UNITS/3 ML VIAL SQ SCH ×3 (12:49→23:37)
[2019-01-14] MEDS: Pantoprazole 40 MG VIAL IVP SCH (12:51)
[2019-01-14 17:13] LABS: Hematocrit 24.6 % (37.5-50.1); Hemoglobin 7.9 g/dL (12.9-16.9); Mean Corpuscular HGB Conc 32.1 g/dL (31.6-35.5); Mean Corpuscular Hemoglobin 33.8 pg (28.0-33.3); Mean Corpuscular Volume 105.1 fL (83.0-100.0); Mean Platelet Volume 11.9 fL (9.4-12.4); Platelet Count 137 K/mcL (140-400); Red Blood Count 2.34 M/mcL (4.19-5.50); Red Cell Distribution Width 19.5 % (11.5-14.5)
[2019-01-14 17:16] LABS: White Blood Count 14.9 K/mcL (4.3-11.1)
[2019-01-14] MEDS: Nystatin Cream 15 GM TUBE TP SCH (20:58)
[2019-01-15 00:53] LABS: Hematocrit 24.6 % (37.5-50.1); Hemoglobin 7.8 g/dL (12.9-16.9); Mean Corpuscular HGB Conc 31.7 g/dL (31.6-35.5); Mean Corpuscular Hemoglobin 33.5 pg (28.0-33.3); Mean Corpuscular Volume 105.6 fL (83.0-100.0); Mean Platelet Volume 12.2 fL (9.4-12.4); Platelet Count 141 K/mcL (140-400); Red Blood Count 2.33 M/mcL (4.19-5.50); Red Cell Distribution Width 19.6 % (11.5-14.5); White Blood Count 10.8 K/mcL (4.3-11.1)
[2019-01-15] MEDS: Insulin LISPRO 300 UNITS/3 ML VIAL SQ SCH ×3 (05:45→18:00)
[2019-01-15] MEDS ORDERED: Furosemide 20 MG/2 ML VIAL IVP ONE (07:28)
[2019-01-15] MEDS: Piperacillin/Tazobactam 3.375 GM in 0.9 % Sodium Chloride Mini Bag 100 ML IVPB SCH ×2 (09:17→17:16)
[2019-01-15] MEDS: Pantoprazole 40 MG VIAL IVP SCH (09:32)
[2019-01-15] MEDS: Nystatin Cream 15 GM TUBE TP SCH ×2 (09:35→21:24)
[2019-01-15 14:22] LABS: Basophils % 0.2 %; Eosinophils # 0.2 K/mcL (0.0-0.6); Eosinophils % 1.8 %; Hematocrit 26.1 % (37.5-50.1); Hemoglobin 8.1 g/dL (12.9-16.9); Immature Granulocytes % 0.8 % (0-4); Lymphocytes # 0.7 K/mcL (0.6-4.6); Lymphocytes % 8.1 %; Mean Corpuscular Hemoglobin 32.7 pg (28.0-33.3); Mean Corpuscular Volume 105.2 fL (83.0-100.0); Mean Platelet Volume 12.4 fL (9.4-12.4); Monocytes # 0.6 K/mcL (0.0-1.3); Monocytes % 6.3 %; Neutrophils # 7.3 K/mcL (1.6-8.9); Platelet Count 131 K/mcL (140-400); Red Blood Count 2.48 M/mcL (4.19-5.50); Red Cell Distribution Width 19.4 % (11.5-14.5); Segmented Neutrophils % 82.8 %; White Blood Count 8.8 K/mcL (4.3-11.1)
[2019-01-15] MEDS: D5% in Lactated Ringers 1,000 ML IVC SCH (14:33)
[2019-01-16] MEDS: Insulin LISPRO 300 UNITS/3 ML VIAL SQ SCH ×4 (00:15→18:21)
[2019-01-16] MEDS: Piperacillin/Tazobactam 3.375 GM in 0.9 % Sodium Chloride Mini Bag 100 ML IVPB SCH ×3 (00:15→16:47)
[2019-01-16 02:15] LABS: BUN/Creatinine Ratio 20 (6-26); Blood Urea Nitrogen 17 mg/dL (8-23); Calcium 7.5 mg/dL (8.6-10.3); Carbon Dioxide 25 mEq/L (23-29); Chloride 110 mEq/L (98-107); Glucose 78 mg/dL (70-105); Magnesium 1.8 mg/dL (1.6-2.6); Osmolality,Calculated 288 (280-300); Potassium 3.6 mEq/L (3.5-5.1); Sodium 139 mEq/L (136-145); eGFR For African Americans > 60 (> 60); eGFR For Non-African Americans > 60 (> 60)
[2019-01-16 02:19] LABS: Basophils % 0.1 %; Eosinophils # 0.2 K/mcL (0.0-0.6); Eosinophils % 2.7 %; Hematocrit 24.6 % (37.5-50.1); Hemoglobin 7.6 g/dL (12.9-16.9); Immature Granulocytes % 0.4 % (0-4); Lymphocytes # 0.8 K/mcL (0.6-4.6); Lymphocytes % 9.1 %; Mean Corpuscular HGB Conc 30.9 g/dL (31.6-35.5); Mean Corpuscular Hemoglobin 32.5 pg (28.0-33.3); Mean Corpuscular Volume 105.1 fL (83.0-100.0); Mean Platelet Volume 11.8 fL (9.4-12.4); Monocytes # 0.4 K/mcL (0.0-1.3); Monocytes % 5.4 %; Neutrophils # 6.8 K/mcL (1.6-8.9); Platelet Count 152 K/mcL (140-400); Red Blood Count 2.34 M/mcL (4.19-5.50); Red Cell Distribution Width 19.1 % (11.5-14.5); Segmented Neutrophils % 82.3 %; White Blood Count 8.2 K/mcL (4.3-11.1)
[2019-01-16] MEDS: D5% in Lactated Ringers 1,000 ML IVC SCH (08:00)
[2019-01-16] MEDS: Ferrous Sulfate Oral Soln 300 MG/5 ML UDC GTUBE SCH (08:01)
[2019-01-16] MEDS: Nystatin Cream 15 GM TUBE TP SCH ×2 (08:02→20:11)
[2019-01-16] MEDS: Pantoprazole 40 MG VIAL IVP SCH (08:02)
[2019-01-16] MEDS ORDERED: D5% in Lactated Ringers 1,000 ML IVC SCH (11:52)
[2019-01-16] MEDS ORDERED: Aminoglycoside Consult 1 EACH MC ONE (16:01)
[2019-01-16] MEDS ORDERED: SODIUM CHLORIDE/NAHCO3/KCL/PEG 4,000 ML SOLN.RECON PO ONE (17:00)
[2019-01-16] MEDS: *HR* Dextrose 50 % in Water (Syg) 50 ML SYRINGE IVP PRN (18:18)
[2019-01-16 18:29] LABS: Basophils % 0.4 %; Eosinophils # 0.2 K/mcL (0.0-0.6); Eosinophils % 2.7 %; Hematocrit 24.7 % (37.5-50.1); Immature Granulocytes % 0.6 % (0-4); Lymphocytes # 0.7 K/mcL (0.6-4.6); Lymphocytes % 10.7 %; Mean Corpuscular HGB Conc 32.4 g/dL (31.6-35.5); Mean Corpuscular Hemoglobin 33.8 pg (28.0-33.3); Mean Corpuscular Volume 104.2 fL (83.0-100.0); Mean Platelet Volume 12.2 fL (9.4-12.4); Monocytes # 0.5 K/mcL (0.0-1.3); Neutrophils # 5.3 K/mcL (1.6-8.9); Platelet Count 158 K/mcL (140-400); Red Blood Count 2.37 M/mcL (4.19-5.50); Red Cell Distribution Width 19.1 % (11.5-14.5); Segmented Neutrophils % 78.6 %; White Blood Count 6.7 K/mcL (4.3-11.1)
[2019-01-17] MEDS: Insulin LISPRO 300 UNITS/3 ML VIAL SQ SCH ×4 (00:09→18:54)
[2019-01-17] MEDS: Piperacillin/Tazobactam 3.375 GM in 0.9 % Sodium Chloride Mini Bag 100 ML IVPB SCH ×3 (00:09→18:47)
[2019-01-17] MEDS: *HR* Dextrose 50 % in Water (Syg) 50 ML SYRINGE IVP PRN ×3 (00:16→12:39)
[2019-01-17 01:11] LABS: Basophils % 0.5 %; Eosinophils # 0.1 K/mcL (0.0-0.6); Eosinophils % 2.3 %; Hematocrit 26.4 % (37.5-50.1); Hemoglobin 8.3 g/dL (12.9-16.9); Immature Granulocytes % 0.7 % (0-4); Lymphocytes # 0.7 K/mcL (0.6-4.6); Lymphocytes % 11.4 %; Mean Corpuscular HGB Conc 31.4 g/dL (31.6-35.5); Mean Corpuscular Hemoglobin 32.8 pg (28.0-33.3); Mean Corpuscular Volume 104.3 fL (83.0-100.0); Mean Platelet Volume 12.2 fL (9.4-12.4); Monocytes # 0.5 K/mcL (0.0-1.3); Monocytes % 7.9 %; Neutrophils # 4.6 K/mcL (1.6-8.9); Platelet Count 179 K/mcL (140-400); Red Blood Count 2.53 M/mcL (4.19-5.50); Red Cell Distribution Width 18.8 % (11.5-14.5); Segmented Neutrophils % 77.2 %
[2019-01-17 01:32] LABS: BUN/Creatinine Ratio 18 (6-26); Blood Urea Nitrogen 14 mg/dL (8-23); Calcium 7.4 mg/dL (8.6-10.3); Carbon Dioxide 24 mEq/L (23-29); Chloride 108 mEq/L (98-107); Glucose 67 mg/dL (70-105); Magnesium 1.8 mg/dL (1.6-2.6); Osmolality,Calculated 287 (280-300); Phosphorous 2.6 mg/dL (2.7-4.5); Potassium 3.5 mEq/L (3.5-5.1); Sodium 139 mEq/L (136-145); eGFR For African Americans > 60 (> 60); eGFR For Non-African Americans > 60 (> 60)
[2019-01-17] MEDS ORDERED: Simethicone 40 MG/0.6 ML MLS IR ONE (07:55)
[2019-01-17] MEDS: Pantoprazole 40 MG VIAL IVP SCH (08:29)
[2019-01-17] MEDS ORDERED: Lidocaine -MPF 2% 2 ML VIAL ONE (11:46)
[2019-01-17] MEDS ORDERED: Propofol 500 MG/50 ML INFUS..BTL ONE (11:46)
[2019-01-17] MEDS ORDERED: *HR* PHENYLEPHRINE 1,000 MCG/10 ML SYRINGE IVP ONE (12:05)
[2019-01-17] MEDS: Ferrous Sulfate Oral Soln 300 MG/5 ML UDC GTUBE SCH (13:04)
[2019-01-17] MEDS ORDERED: *HR* Labetalol 20 MG/4 ML SYRINGE IVP ONE (14:46)
[2019-01-17] MEDS: Nystatin Cream 15 GM TUBE TP SCH ×2 (16:18→20:56)
[2019-01-17] MEDS: D10% in Water 500 ML IVC SCH (16:34)
[2019-01-17] MEDS: Apixaban 5 MG TABLET GTUBE SCH (20:48)
[2019-01-18] MEDS: Insulin LISPRO 300 UNITS/3 ML VIAL SQ SCH ×3 (00:21→12:30)
[2019-01-18] MEDS: Piperacillin/Tazobactam 3.375 GM in 0.9 % Sodium Chloride Mini Bag 100 ML IVPB SCH ×3 (00:21→12:29)
[2019-01-18] MEDS: D10% in Water 500 ML IVC SCH (04:08)
[2019-01-18] MEDS: Nystatin Cream 15 GM TUBE TP SCH (07:37)
[2019-01-18] MEDS: Pantoprazole 40 MG VIAL IVP SCH (07:37)
[2019-01-18] MEDS: Apixaban 5 MG TABLET GTUBE SCH (07:37)
[2019-01-18] MEDS: Ferrous Sulfate Oral Soln 300 MG/5 ML UDC GTUBE SCH (07:37)
[2019-01-18 08:04] LABS: White Blood Count 6.2 K/mcL (4.3-11.1)
[2019-01-18 08:05] LABS: Basophils % 0.3 %; Eosinophils # 0.1 K/mcL (0.0-0.6); Eosinophils % 1.5 %; Hematocrit 25.7 % (37.5-50.1); Immature Granulocytes % 0.5 % (0-4); Lymphocytes # 0.7 K/mcL (0.6-4.6); Lymphocytes % 11.3 %; Mean Corpuscular HGB Conc 31.1 g/dL (31.6-35.5); Mean Corpuscular Hemoglobin 32.9 pg (28.0-33.3); Mean Corpuscular Volume 105.8 fL (83.0-100.0); Mean Platelet Volume 11.8 fL (9.4-12.4); Monocytes # 0.4 K/mcL (0.0-1.3); Monocytes % 6.9 %; Neutrophils # 4.9 K/mcL (1.6-8.9); Platelet Count 160 K/mcL (140-400); Red Blood Count 2.43 M/mcL (4.19-5.50); Red Cell Distribution Width 18.9 % (11.5-14.5); Segmented Neutrophils % 79.5 %
[2019-01-18 08:07] LABS: BUN/Creatinine Ratio 13 (6-26); Blood Urea Nitrogen 10 mg/dL (8-23); Carbon Dioxide 23 mEq/L (23-29); Chloride 108 mEq/L (98-107); Glucose 113 mg/dL (70-105); Magnesium 1.7 mg/dL (1.6-2.6); Osmolality,Calculated 288 (280-300); Phosphorous 1.9 mg/dL (2.7-4.5); Potassium 3.4 mEq/L (3.5-5.1); Sodium 139 mEq/L (136-145); eGFR For African Americans > 60 (> 60); eGFR For Non-African Americans > 60 (> 60)
[2019-01-18] MEDS ORDERED: Potassium Phosphate 44 MEQ in 0.9 % Sodium Chloride 250 ML IVPB ONE (08:40)
[2019-01-18 12:31] VITALS: BP 104/67
== END 2019-01-18 16:02 | DRG 871 ==
LOC: 3BNU 10:26 → EMEROOARM 10:26 → SUATTDRO 12:55 → 3BNU 13:49
PROVIDERS: ADMIT Internal Medicine; ATTEND Internal Medicine

== ENCOUNTER 2019-01-27 06:45 | Inpatient (IN) ==
[2019-01-27] MEDS ORDERED: 0.9 % Sodium Chloride 500 ML IVC ONE ×2 (07:16→09:44)
[2019-01-27] MEDS ORDERED: *HR* Etomidate 20 MG/10 ML AMPUL IVP ONE (09:00)
[2019-01-27] MEDS ORDERED: *HR* Midazolam HCl 5 MG/5 ML VIAL IVP ONE (09:00)
[2019-01-27] MEDS ORDERED: Acetaminophen 650 MG RECTAL SUPP RC ONE (09:33)
[2019-01-27 09:39] LABS: Basophils % 0.5 %; Eosinophils # 0.1 K/mcL (0.0-0.6); Eosinophils % 0.6 %; Hematocrit 27.7 % (37.5-50.1); Hemoglobin 9.5 g/dL (12.9-16.9); Immature Granulocytes % 0.5 % (0-4); Lymphocytes # 0.7 K/mcL (0.6-4.6); Lymphocytes % 8.4 %; Mean Corpuscular HGB Conc 34.3 g/dL (31.6-35.5); Mean Corpuscular Hemoglobin 33.8 pg (28.0-33.3); Mean Corpuscular Volume 98.6 fL (83.0-100.0); Mean Platelet Volume 12.2 fL (9.4-12.4); Monocytes % 11.9 %; Neutrophils # 6.5 K/mcL (1.6-8.9); Platelet Count 131 K/mcL (140-400); Red Blood Count 2.81 M/mcL (4.19-5.50); Red Cell Distribution Width 18.9 % (11.5-14.5); Segmented Neutrophils % 78.1 %; White Blood Count 8.3 K/mcL (4.3-11.1)
[2019-01-27] MEDS ORDERED: Piperacillin/Tazobactam 3.375 GM in 0.9 % Sodium Chloride Mini Bag 100 ML IVPB ONE (09:50)
[2019-01-27 09:56] LABS: Acetaminophen < 10 mcg/mL (10-20); Alanine Aminotransferase 11 Units/L (7-52); Albumin 3.2 g/dL (3.5-5.7); Albumin/Globulin Ratio 1.3 (1.1-2.2); Alkaline Phosphatase 70 Units/L (34-104); Aspartate Amino Transferase 19 Units/L (13-39); BUN/Creatinine Ratio 29 (6-26); Bilirubin,Total 0.8 mg/dL (0.3-1.0); Blood Urea Nitrogen 21 mg/dL (8-23); Calcium 8.4 mg/dL (8.6-10.3); Carbon Dioxide 26 mEq/L (23-29); Chloride 98 mEq/L (98-107); Ethanol < 10 mg/dL (Less than 10); Globulin 2.4 g/dL (2.4-3.5); Glucose 92 mg/dL (70-105); Osmolality,Calculated 275 (280-300); Potassium 4.2 mEq/L (3.5-5.1); Salicylate < 2.5 mg/dL (15.0-30.0); Sodium 131 mEq/L (136-145); Total Protein 5.6 g/dL (6.4-8.9); Troponin I < 0.03 ng/mL (< 0.04); eGFR For African Americans > 60 (> 60); eGFR For Non-African Americans > 60 (> 60)
[2019-01-27 10:42] LABS: Bilirubin,Urine Negative (Negative); Blood,Urine Moderate (Negative); Color,Urine Yellow (Yellow); Glucose,Urine (UA) Normal (Normal); Ketones,Urine Negative (Negative); Leukocyte Esterase,Urine Small (Negative); Nitrite,Urine Negative (Negative); Protein,Urine 30 mg/dL (Neg-Trace); Specific Gravity,Urine 1.017 (1.010-1.025); Urobilinogen,Urine Normal (Normal)
[2019-01-27 10:44] LABS: Hyaline Casts,Urine None Seen per lpf (None-Few); Squamous Epithelial Cell,Urine Many per lpf (None-Few); WBC,Urine 0-3 per hpf (0-3)
[2019-01-27 10:50] LABS: Clarity,Urine Clear (Clear)
[2019-01-27 10:53] LABS: Bacteria,Urine Few per hpf (None-Few); RBC,Urine 0-3 per hpf (0-3)
[2019-01-27 10:58] LABS: Amphetamine Screen,Urine Negative ng/mL (Cutoff=1000); Barbiturate Screen,Urine Negative ng/mL (Cutoff=200); Benzodiazepines Screen,Urine Negative ng/mL (Cutoff=200); Cannabinoid Screen,Urine Negative ng/mL (Cutoff = 50); Cocaine Screen,Urine Negative ng/mL (Cutoff= 300); Opiate Screen,Urine Negative ng/mL (Cutoff=300); Phencyclidine Screen,Urine Negative ng/mL (Cutoff=25)
[2019-01-27] MEDS ORDERED: 0.9 % Sodium Chloride 1,000 ML ONE (12:49)
[2019-01-27 12:55] LABS: ABG Base Excess 2 mEq/L (-2 to 3); ABG HCO3 25 mEq/L (21-27); ABG Oxygen Saturation 100 % (95-98); ABG PCO2 31 mmHg (35-45); ABG PH 7.51 pH Units (7.32-7.45); ABG PO2 205 mmHg (85-104); ABG TCO2 26 mEq/L (20-26)
[2019-01-27] MEDS ORDERED: Ondansetron 4 MG/2 ML VIAL IVP PRN (12:56)
[2019-01-27] MEDS ORDERED: Acetaminophen 325 MG TABLET PO PRN (12:56)
[2019-01-27] MEDS ORDERED: Naloxone 0.4 MG/ML INJ IVP PRN (12:56)
[2019-01-27] MEDS: 0.9 % Sodium Chloride 1,000 ML IVC SCH ×2 (14:29→17:32)
[2019-01-27] MEDS ORDERED: Nitroglycerin 0.4 MG TAB.SUBL SL PRN (15:12)
[2019-01-27] MEDS ORDERED: Denosumab 60 MG/ML SYRINGE SQ SCH (15:15)
[2019-01-27] MEDS: Ipratropium/Albuterol Neb 3 ML IH SCH ×3 (15:33→23:55)
[2019-01-27] MEDS: Piperacillin/Tazobactam 3.375 GM in 0.9 % Sodium Chloride Mini Bag 100 ML IVPB SCH ×2 (16:54→23:47)
[2019-01-27] MEDS: Aspirin Enteric Coated 81 MG Tablet PO SCH (16:55)
[2019-01-27 17:01] LABS: Adenovirus Not Detected (Not Detect); Bordetella Pertussis Not Detected (Not Detect); Chlamydophila pneumoniae Not Detected (Not Detect); Coronavirus 229E Not Detected (Not Detect); Coronavirus HKU1 Not Detected (Not Detect); Coronavirus NL63 Not Detected (Not Detect); Coronavirus OC43 Not Detected (Not Detect); Human Metapneumovirus Not Detected (Not Detect); Human Rhinovirus/Enterovirus Not Detected (Not Detect); Influenza A Subtype 2009 H1 Not Detected (Not Detect); Influenza A Untypeable Not Detected (Not Detect); Influenza B Not Detected (Not Detect); Mycoplasma pneumoniae Not Detected (Not Detect); Parainfluenza Virus 1 Not Detected (Not Detect); Parainfluenza Virus 2 Not Detected (Not Detect); Parainfluenza Virus 3 Not Detected (Not Detect); Parainfluenza Virus 4 Not Detected (Not Detect); Respiratory Syncytial Virus Not Detected (Not Detect)
[2019-01-27] MEDS ORDERED: Gadolinium Contrast Agent (WT Based) IV PRN (17:43)
[2019-01-27] MEDS: Apixaban 5 MG TABLET GTUBE SCH (20:43)
[2019-01-27 21:57] LABS: ABG Base Excess -1 mEq/L (-2 to 3); ABG HCO3 25 mEq/L (21-27); ABG Oxygen Saturation 99 % (95-98); ABG PCO2 46 mmHg (35-45); ABG PH 7.33 pH Units (7.32-7.45); ABG PO2 130 mmHg (85-104); ABG TCO2 26 mEq/L (20-26)
[2019-01-28] MEDS: Ipratropium/Albuterol Neb 3 ML IH SCH ×6 (03:50→23:10)
[2019-01-28] MEDS: 0.9 % Sodium Chloride 1,000 ML IVC SCH (04:50)
[2019-01-28] MEDS: FentaNYL (PF) 1,000 MCG in 0.9 % Sodium Chloride 80 ML IVC SCH ×2 (05:00→16:22)
[2019-01-28 06:13] LABS: ABG Base Excess 0 mEq/L (-2 to 3); ABG HCO3 25 mEq/L (21-27); ABG Oxygen Saturation 100 % (95-98); ABG PCO2 43 mmHg (35-45); ABG PH 7.38 pH Units (7.32-7.45); ABG PO2 278 mmHg (85-104); ABG TCO2 27 mEq/L (20-26); Blood Gas Modality ASSIST CONTROL; Blood Gas VT 500 cc
[2019-01-28 07:04] LABS: Hematocrit 27.5 % (37.5-50.1); Hemoglobin 8.8 g/dL (12.9-16.9); Mean Corpuscular Hemoglobin 33.8 pg (28.0-33.3); Mean Platelet Volume 12.5 fL (9.4-12.4); Platelet Count 119 K/mcL (140-400); Red Cell Distribution Width 19.3 % (11.5-14.5); White Blood Count 9.1 K/mcL (4.3-11.1)
[2019-01-28 07:09] LABS: Mean Corpuscular Volume 105.8 fL (83.0-100.0)
[2019-01-28 07:40] LABS: Alanine Aminotransferase 11 Units/L (7-52); Albumin 3.1 g/dL (3.5-5.7); Albumin/Globulin Ratio 1.3 (1.1-2.2); Alkaline Phosphatase 68 Units/L (34-104); Aspartate Amino Transferase 18 Units/L (13-39); BUN/Creatinine Ratio 24 (6-26); Bilirubin,Total 0.9 mg/dL (0.3-1.0); Blood Urea Nitrogen 16 mg/dL (8-23); Calcium 7.9 mg/dL (8.6-10.3); Carbon Dioxide 25 mEq/L (23-29); Chloride 105 mEq/L (98-107); Globulin 2.3 g/dL (2.4-3.5); Glucose 104 mg/dL (70-105); Magnesium 1.8 mg/dL (1.6-2.6); Osmolality,Calculated 285 (280-300); Phosphorous 2.1 mg/dL (2.7-4.5); Potassium 3.9 mEq/L (3.5-5.1); Sodium 137 mEq/L (136-145); Total Protein 5.4 g/dL (6.4-8.9); eGFR For African Americans > 60 (> 60); eGFR For Non-African Americans > 60 (> 60)
[2019-01-28] MEDS ORDERED: Aminoglycoside Consult 1 EACH MC ONE (07:56)
[2019-01-28] MEDS: Piperacillin/Tazobactam 3.375 GM in 0.9 % Sodium Chloride Mini Bag 100 ML IVPB SCH ×3 (09:00→23:39)
[2019-01-28] MEDS: Apixaban 5 MG TABLET GTUBE SCH ×2 (09:02→20:07)
[2019-01-28] MEDS: Pantoprazole 40 MG VIAL IVP SCH (09:02)
[2019-01-28] MEDS: Thiamine (B-1) 100 MG TABLET GTUBE SCH (09:02)
[2019-01-28] MEDS: Folic Acid 1 MG TABLET GTUBE SCH (09:03)
[2019-01-28] MEDS: Cholecalciferol (D-3) 1,000 UNIT (25MCG) TABLET PO SCH (09:03)
[2019-01-28] MEDS: Cyanocobalamin (B-12) 1,000 MCG TABLET GTUBE SCH (09:03)
[2019-01-28] MEDS: *HR* Metoprolol 5 MG/5 ML VIAL IVP PRN ×2 (13:00→20:58)
[2019-01-28] MEDS ORDERED: Artificial Tears SOLN 15 ML BOTTLE BOTH EYES PRN (13:16)
[2019-01-28 13:49] LABS: Alanine Aminotransferase 10 Units/L (7-52); Albumin 3.1 g/dL (3.5-5.7); Albumin/Globulin Ratio 1.1 (1.1-2.2); Alkaline Phosphatase 60 Units/L (34-104); Aspartate Amino Transferase 16 Units/L (13-39); BUN/Creatinine Ratio 22 (6-26); Bilirubin,Total 0.7 mg/dL (0.3-1.0); Blood Urea Nitrogen 16 mg/dL (8-23); Calcium 7.9 mg/dL (8.6-10.3); Carbon Dioxide 25 mEq/L (23-29); Chloride 106 mEq/L (98-107); Globulin 2.7 g/dL (2.4-3.5); Glucose 167 mg/dL (70-105); Magnesium 1.8 mg/dL (1.6-2.6); Osmolality,Calculated 289 (280-300); Phosphorous 2.3 mg/dL (2.7-4.5); Potassium 3.8 mEq/L (3.5-5.1); Sodium 137 mEq/L (136-145); Total Protein 5.8 g/dL (6.4-8.9); eGFR For African Americans > 60 (> 60); eGFR For Non-African Americans > 60 (> 60)
[2019-01-28] MEDS: Artificial Tears SOLN 15 ML BOTTLE BOTH EYES SCH ×3 (17:30→23:40)
[2019-01-28] MEDS: Aspirin Enteric Coated 81 MG Tablet PO SCH (17:31)
[2019-01-28] MEDS: Chlorhexidine Rinse 15 ML MOUTHWASH MM SCH (20:07)
[2019-01-29] MEDS: *HR* Metoprolol 5 MG/5 ML VIAL IVP PRN (02:38)
[2019-01-29] MEDS: Ipratropium/Albuterol Neb 3 ML IH SCH ×5 (03:05→19:18)
[2019-01-29] MEDS: Artificial Tears SOLN 15 ML BOTTLE BOTH EYES SCH ×6 (03:32→23:17)
[2019-01-29] MEDS ORDERED: *HR* Metoprolol 5 MG/5 ML VIAL IVP ONE (03:46)
[2019-01-29] MEDS: FentaNYL (PF) 1,000 MCG in 0.9 % Sodium Chloride 80 ML IVC SCH ×2 (04:17→20:00)
[2019-01-29] MEDS ORDERED: Amiodarone Premix 360 MG/200 ML BAG IVC ONE (04:22)
[2019-01-29] MEDS ORDERED: Amiodarone Premix 150 MG/100 ML BAG IVPB ONE (04:22)
[2019-01-29 04:55] LABS: ABG Base Excess 0 mEq/L (-2 to 3); ABG HCO3 25 mEq/L (21-27); ABG Oxygen Saturation 99 % (95-98); ABG PCO2 41 mmHg (35-45); ABG PH 7.39 pH Units (7.32-7.45); ABG PO2 123 mmHg (85-104); ABG TCO2 26 mEq/L (20-26); Blood Gas Modality ASSIST CONTROL; Blood Gas VT 450 cc
[2019-01-29 06:54] LABS: Hematocrit 26.9 % (37.5-50.1); Hemoglobin 8.5 g/dL (12.9-16.9); Mean Corpuscular HGB Conc 31.6 g/dL (31.6-35.5); Mean Corpuscular Hemoglobin 33.3 pg (28.0-33.3); Mean Corpuscular Volume 105.5 fL (83.0-100.0); Platelet Count 154 K/mcL (140-400); Red Blood Count 2.55 M/mcL (4.19-5.50); Red Cell Distribution Width 19.2 % (11.5-14.5); White Blood Count 10.5 K/mcL (4.3-11.1)
[2019-01-29 07:14] LABS: BUN/Creatinine Ratio 22 (6-26); Blood Urea Nitrogen 22 mg/dL (8-23); Calcium 7.3 mg/dL (8.6-10.3); Carbon Dioxide 26 mEq/L (23-29); Chloride 101 mEq/L (98-107); Glucose 235 mg/dL (70-105); Magnesium 1.9 mg/dL (1.6-2.6); Osmolality,Calculated 289 (280-300); Phosphorous 2.5 mg/dL (2.7-4.5); Potassium 4.5 mEq/L (3.5-5.1); Sodium 134 mEq/L (136-145); eGFR For African Americans > 60 (> 60); eGFR For Non-African Americans > 60 (> 60)
[2019-01-29] MEDS: Apixaban 5 MG TABLET GTUBE SCH ×2 (09:20→20:39)
[2019-01-29] MEDS: Chlorhexidine Rinse 15 ML MOUTHWASH MM SCH ×2 (09:20→20:39)
[2019-01-29] MEDS: Thiamine (B-1) 100 MG TABLET GTUBE SCH (09:20)
[2019-01-29] MEDS: Cholecalciferol (D-3) 1,000 UNIT (25MCG) TABLET PO SCH (09:20)
[2019-01-29] MEDS: Pantoprazole 40 MG VIAL IVP SCH (09:33)
[2019-01-29] MEDS: Piperacillin/Tazobactam 3.375 GM in 0.9 % Sodium Chloride Mini Bag 100 ML IVPB SCH (09:33)
[2019-01-29] MEDS: Folic Acid 1 MG TABLET GTUBE SCH (09:33)
[2019-01-29] MEDS: Cyanocobalamin (B-12) 1,000 MCG TABLET GTUBE SCH (09:33)
[2019-01-29] MEDS: Amiodarone Premix 360 MG/200 ML BAG IVC SCH ×2 (10:33→21:52)
[2019-01-29] MEDS: Meropenem 1,000 MG in 0.9 % Sodium Chloride Mini Bag 100 ML IVPB SCH ×2 (14:49→20:39)
[2019-01-29] MEDS: Aspirin Enteric Coated 81 MG Tablet PO SCH (16:50)
[2019-01-30] MEDS ORDERED: Acetaminophen IV 1,000 MG/100 ML INFUS..BTL IVPB ONE (00:17)
[2019-01-30 02:38] LABS: Basophils # 0.1 K/mcL (0.0-0.2); Basophils % 0.4 %; Eosinophils % 0.3 %; Hematocrit 24.7 % (37.5-50.1); Hemoglobin 8.2 g/dL (12.9-16.9); Immature Granulocytes % 0.7 % (0-4); Lymphocytes # 0.4 K/mcL (0.6-4.6); Lymphocytes % 2.7 %; Mean Corpuscular HGB Conc 33.2 g/dL (31.6-35.5); Mean Corpuscular Hemoglobin 34.3 pg (28.0-33.3); Mean Corpuscular Volume 103.3 fL (83.0-100.0); Mean Platelet Volume 12.8 fL (9.4-12.4); Monocytes # 1.1 K/mcL (0.0-1.3); Monocytes % 6.9 %; Neutrophils # 13.7 K/mcL (1.6-8.9); Platelet Count 157 K/mcL (140-400); Red Blood Count 2.39 M/mcL (4.19-5.50); Red Cell Distribution Width 19.2 % (11.5-14.5); White Blood Count 15.3 K/mcL (4.3-11.1)
[2019-01-30 02:54] LABS: Calcium 7.3 mg/dL (8.6-10.3); Potassium 4.3 mEq/L (3.5-5.1)
[2019-01-30] MEDS ORDERED: 0.9 % Sodium Chloride 500 ML IVC ONE (02:54)
[2019-01-30] MEDS: Levalbuterol Neb 1.25 MG/3 ML IH SCH ×4 (03:01→22:17)
[2019-01-30] MEDS: Artificial Tears SOLN 15 ML BOTTLE BOTH EYES SCH ×6 (03:20→23:30)
[2019-01-30 04:01] LABS: ABG Base Excess -2 mEq/L (-2 to 3); ABG HCO3 23 mEq/L (21-27); ABG Oxygen Saturation 98 % (95-98); ABG PCO2 43 mmHg (35-45); ABG PH 7.34 pH Units (7.32-7.45); ABG PO2 112 mmHg (85-104); ABG TCO2 25 mEq/L (20-26); Blood Gas Modality ASSIST CONTROL; Blood Gas VT 450 cc
[2019-01-30] MEDS: Meropenem 1,000 MG in 0.9 % Sodium Chloride Mini Bag 100 ML IVPB SCH ×2 (05:29→14:06)
[2019-01-30] MEDS: Cyanocobalamin (B-12) 1,000 MCG TABLET GTUBE SCH (07:48)
[2019-01-30] MEDS: Pantoprazole 40 MG VIAL IVP SCH (07:48)
[2019-01-30] MEDS: Folic Acid 1 MG TABLET GTUBE SCH (07:48)
[2019-01-30] MEDS: Thiamine (B-1) 100 MG TABLET GTUBE SCH (07:48)
[2019-01-30] MEDS: Cholecalciferol (D-3) 1,000 UNIT (25MCG) TABLET PO SCH (07:48)
[2019-01-30] MEDS: Apixaban 5 MG TABLET GTUBE SCH ×2 (07:48→21:16)
[2019-01-30] MEDS: Chlorhexidine Rinse 15 ML MOUTHWASH MM SCH ×2 (07:49→20:14)
[2019-01-30] MEDS: Amiodarone Premix 360 MG/200 ML BAG IVC SCH ×2 (09:45→20:15)
[2019-01-30] MEDS: Aspirin 81 MG TAB.CHEW PO SCH (17:13)
[2019-01-30] MEDS: Dexmedetomidine HCl 400 MCG/100 ML MLS IVC SCH (17:13)
[2019-01-30] MEDS ORDERED: 0.9 % Sodium Chloride 1,000 ML IVC ONE ×2 (19:43→22:41)
[2019-01-30] MEDS ORDERED: Calcium Gluconate 1gm/50mL 1 GM/50 ML BAG IVPB ONE (20:09)
[2019-01-31] MEDS: Meropenem 1,000 MG in 0.9 % Sodium Chloride Mini Bag 100 ML IVPB SCH ×2 (00:19→11:07)
[2019-01-31] MEDS: Desitin (Zinc Oxide) 56 GM TUBE TP PRN ×2 (02:19→23:17)
[2019-01-31] MEDS: FentaNYL (PF) 1,000 MCG in 0.9 % Sodium Chloride 80 ML IVC SCH (02:21)
[2019-01-31] MEDS: Artificial Tears SOLN 15 ML BOTTLE BOTH EYES SCH ×6 (02:21→23:17)
[2019-01-31] MEDS: Levalbuterol Neb 1.25 MG/3 ML IH SCH ×4 (05:12→22:37)
[2019-01-31 06:03] LABS: ABG Base Excess -3 mEq/L (-2 to 3); ABG HCO3 23 mEq/L (21-27); ABG Oxygen Saturation 98 % (95-98); ABG PCO2 40 mmHg (35-45); ABG PH 7.36 pH Units (7.32-7.45); ABG PO2 102 mmHg (85-104); ABG TCO2 24 mEq/L (20-26); Blood Gas Modality AF; Blood Gas VT 450 cc
[2019-01-31] MEDS: Dexmedetomidine HCl 400 MCG/100 ML MLS IVC SCH (07:42)
[2019-01-31] MEDS: Folic Acid 1 MG TABLET GTUBE SCH (07:50)
[2019-01-31] MEDS: Cholecalciferol (D-3) 1,000 UNIT (25MCG) TABLET PO SCH (07:50)
[2019-01-31] MEDS: Apixaban 5 MG TABLET GTUBE SCH ×2 (07:50→20:03)
[2019-01-31] MEDS: Pantoprazole 40 MG VIAL IVP SCH (07:50)
[2019-01-31] MEDS: Thiamine (B-1) 100 MG TABLET GTUBE SCH (07:50)
[2019-01-31] MEDS: Cyanocobalamin (B-12) 1,000 MCG TABLET GTUBE SCH (07:50)
[2019-01-31] MEDS: Aspirin 81 MG TAB.CHEW PO SCH (07:50)
[2019-01-31] MEDS: Chlorhexidine Rinse 15 ML MOUTHWASH MM SCH ×2 (07:50→20:02)
[2019-01-31] MEDS: Amiodarone Premix 360 MG/200 ML BAG IVC SCH ×2 (07:51→17:22)
[2019-01-31 11:02] LABS: Basophils % 0.1 %; Eosinophils % 0.2 %; Hemoglobin 6.3 g/dL (12.9-16.9); Immature Granulocytes % 1.1 % (0-4); Lymphocytes # 0.3 K/mcL (0.6-4.6); Lymphocytes % 2.1 %; Mean Corpuscular HGB Conc 33.2 g/dL (31.6-35.5); Mean Corpuscular Hemoglobin 33.7 pg (28.0-33.3); Mean Corpuscular Volume 101.6 fL (83.0-100.0); Mean Platelet Volume 12.7 fL (9.4-12.4); Monocytes # 0.7 K/mcL (0.0-1.3); Monocytes % 4.7 %; Neutrophils # 13.7 K/mcL (1.6-8.9); Platelet Count 144 K/mcL (140-400); Red Blood Count 1.87 M/mcL (4.19-5.50); Red Cell Distribution Width 19.6 % (11.5-14.5); Segmented Neutrophils % 91.8 %; White Blood Count 14.9 K/mcL (4.3-11.1)
[2019-01-31 11:22] LABS: Calcium 6.9 mg/dL (8.6-10.3); Potassium 3.9 mEq/L (3.5-5.1)
[2019-01-31 16:05] LABS: Basophils % 0.1 %; Eosinophils % 0.2 %; Hemoglobin 6.6 g/dL (12.9-16.9); Immature Granulocytes % 1.2 % (0-4); Lymphocytes # 0.4 K/mcL (0.6-4.6); Lymphocytes % 2.9 %; Mean Corpuscular Hemoglobin 33.7 pg (28.0-33.3); Mean Platelet Volume 12.3 fL (9.4-12.4); Monocytes # 0.8 K/mcL (0.0-1.3); Monocytes % 5.4 %; Neutrophils # 13.1 K/mcL (1.6-8.9); Platelet Count 148 K/mcL (140-400); Red Blood Count 1.96 M/mcL (4.19-5.50); Red Cell Distribution Width 19.5 % (11.5-14.5); Segmented Neutrophils % 90.2 %; White Blood Count 14.6 K/mcL (4.3-11.1)
[2019-01-31] MEDS: Hydrocortisone Sodium Succ 100 MG/2 ML VIAL IVP SCH ×2 (17:21→23:19)
[2019-01-31] MEDS ORDERED: 0.9 % Sodium Chloride 250 ML ONE (18:26)
[2019-02-01] MEDS: Meropenem 1,000 MG in 0.9 % Sodium Chloride Mini Bag 100 ML IVPB SCH ×2 (01:23→11:18)
[2019-02-01] MEDS: FentaNYL (PF) 1,000 MCG in 0.9 % Sodium Chloride 80 ML IVC SCH (01:44)
[2019-02-01] MEDS: Artificial Tears SOLN 15 ML BOTTLE BOTH EYES SCH ×5 (04:21→20:28)
[2019-02-01] MEDS: Levalbuterol Neb 1.25 MG/3 ML IH SCH ×4 (04:21→21:46)
[2019-02-01] MEDS: Amiodarone Premix 360 MG/200 ML BAG IVC SCH ×2 (04:45→16:10)
[2019-02-01 05:06] LABS: ABG Base Excess -2 mEq/L (-2 to 3); ABG HCO3 22 mEq/L (21-27); ABG Oxygen Saturation 98 % (95-98); ABG PCO2 34 mmHg (35-45); ABG PH 7.42 pH Units (7.32-7.45); ABG PO2 106 mmHg (85-104); ABG TCO2 23 mEq/L (20-26); Blood Gas Modality CPAP/PS; Blood Gas Pressure Support 8 cm H2O
[2019-02-01 06:29] LABS: Calcium 6.9 mg/dL (8.6-10.3); Potassium 4.3 mEq/L (3.5-5.1)
[2019-02-01] MEDS ORDERED: Bisacodyl 10 MG RECTAL SUPPOSITORY RC PRN (07:54)
[2019-02-01] MEDS: Pantoprazole 40 MG VIAL IVP SCH (07:56)
[2019-02-01] MEDS: Chlorhexidine Rinse 15 ML MOUTHWASH MM SCH ×2 (07:57→20:27)
[2019-02-01] MEDS: Thiamine (B-1) 100 MG TABLET GTUBE SCH (07:57)
[2019-02-01] MEDS: Cholecalciferol (D-3) 1,000 UNIT (25MCG) TABLET PO SCH (07:57)
[2019-02-01] MEDS: Folic Acid 1 MG TABLET GTUBE SCH (07:57)
[2019-02-01] MEDS: Hydrocortisone Sodium Succ 100 MG/2 ML VIAL IVP SCH ×2 (07:57→16:10)
[2019-02-01] MEDS: Aspirin 81 MG TAB.CHEW PO SCH (07:57)
[2019-02-01] MEDS: Cyanocobalamin (B-12) 1,000 MCG TABLET GTUBE SCH (07:57)
[2019-02-01] MEDS: Apixaban 5 MG TABLET GTUBE SCH ×2 (07:57→20:27)
[2019-02-01] MEDS: Dexmedetomidine HCl 400 MCG/100 ML MLS IVC SCH (07:58)
[2019-02-01 08:01] LABS: Basophils % 0.1 %; Hematocrit 23.2 % (37.5-50.1); Hemoglobin 7.7 g/dL (12.9-16.9); Immature Granulocytes % 1.2 % (0-4); Lymphocytes # 0.2 K/mcL (0.6-4.6); Lymphocytes % 1.5 %; Mean Corpuscular HGB Conc 33.2 g/dL (31.6-35.5); Mean Corpuscular Hemoglobin 31.6 pg (28.0-33.3); Mean Corpuscular Volume 95.1 fL (83.0-100.0); Mean Platelet Volume 13.3 fL (9.4-12.4); Monocytes # 0.5 K/mcL (0.0-1.3); Neutrophils # 14.2 K/mcL (1.6-8.9); Platelet Count 121 K/mcL (140-400); Red Blood Count 2.44 M/mcL (4.19-5.50); Red Cell Distribution Width 20.6 % (11.5-14.5); Segmented Neutrophils % 94.2 %; White Blood Count 15.1 K/mcL (4.3-11.1)
[2019-02-01 13:09] LABS: Hematocrit 20.4 % (37.5-50.1); Hemoglobin 7.1 g/dL (12.9-16.9)
[2019-02-01] MEDS: levoFLOXacin 750 MG/150 ML 750 MG/150 ML BAG IVPB SCH (16:11)
[2019-02-02] MEDS: Meropenem 1,000 MG in 0.9 % Sodium Chloride Mini Bag 100 ML IVPB SCH ×2 (01:42→11:34)
[2019-02-02] MEDS: Artificial Tears SOLN 15 ML BOTTLE BOTH EYES SCH ×6 (01:43→20:49)
[2019-02-02] MEDS: Hydrocortisone Sodium Succ 100 MG/2 ML VIAL IVP SCH ×3 (01:43→15:42)
[2019-02-02] MEDS: Amiodarone Premix 360 MG/200 ML BAG IVC SCH ×2 (03:45→15:44)
[2019-02-02] MEDS: FentaNYL (PF) 1,000 MCG in 0.9 % Sodium Chloride 80 ML IVC SCH ×2 (03:46→22:00)
[2019-02-02] MEDS: Levalbuterol Neb 1.25 MG/3 ML IH SCH ×4 (03:53→22:03)
[2019-02-02 05:06] LABS: ABG Base Excess 0 mEq/L (-2 to 3); ABG HCO3 23 mEq/L (21-27); ABG Oxygen Saturation 98 % (95-98); ABG PCO2 30 mmHg (35-45); ABG PH 7.49 pH Units (7.32-7.45); ABG PO2 96 mmHg (85-104); ABG TCO2 24 mEq/L (20-26); Blood Gas Modality CPAP/PS; Blood Gas Pressure Support 8 cm H2O
[2019-02-02 05:23] LABS: Basophils % 0.1 %; Hematocrit 17.5 % (37.5-50.1); Immature Granulocytes % 2.5 % (0-4); Lymphocytes # 0.3 K/mcL (0.6-4.6); Lymphocytes % 1.7 %; Mean Corpuscular HGB Conc 34.3 g/dL (31.6-35.5); Mean Corpuscular Hemoglobin 31.9 pg (28.0-33.3); Mean Corpuscular Volume 93.1 fL (83.0-100.0); Mean Platelet Volume 12.6 fL (9.4-12.4); Monocytes # 0.8 K/mcL (0.0-1.3); Monocytes % 4.8 %; Neutrophils # 15.4 K/mcL (1.6-8.9); Nucleated Red Blood Cells 0.1 /100 WBC (0); Platelet Count 197 K/mcL (140-400); Red Blood Count 1.88 M/mcL (4.19-5.50); Red Cell Distribution Width 20.7 % (11.5-14.5); Segmented Neutrophils % 90.9 %; White Blood Count 16.9 K/mcL (4.3-11.1)
[2019-02-02 05:41] LABS: Calcium 7.2 mg/dL (8.6-10.3)
[2019-02-02] MEDS ORDERED: 0.9 % Sodium Chloride 250 ML ONE ×2 (05:59→16:01)
[2019-02-02] MEDS: Cyanocobalamin (B-12) 1,000 MCG TABLET GTUBE SCH (07:50)
[2019-02-02] MEDS: Thiamine (B-1) 100 MG TABLET GTUBE SCH (07:50)
[2019-02-02] MEDS: Aspirin 81 MG TAB.CHEW PO SCH (07:50)
[2019-02-02] MEDS: Folic Acid 1 MG TABLET GTUBE SCH (07:50)
[2019-02-02] MEDS: Cholecalciferol (D-3) 1,000 UNIT (25MCG) TABLET PO SCH (07:50)
[2019-02-02] MEDS: Dexmedetomidine HCl 400 MCG/100 ML MLS IVC SCH ×2 (07:51→20:08)
[2019-02-02] MEDS: Pantoprazole 40 MG VIAL IVP SCH (07:52)
[2019-02-02] MEDS: Chlorhexidine Rinse 15 ML MOUTHWASH MM SCH ×2 (07:52→20:48)
[2019-02-02] MEDS: Apixaban 5 MG TABLET GTUBE SCH (09:45)
[2019-02-02] MEDS ORDERED: *HR* Dextrose 50 % in Water (Syg) 50 ML SYRINGE IVP PRN (11:26)
[2019-02-02] MEDS ORDERED: D5% in Water 1,000 ML IVC PRN (11:26)
[2019-02-02] MEDS ORDERED: Dextrose Gel 15 GM/37.5 ML TUBE PO PRN ×2 (11:26)
[2019-02-02] MEDS: Insulin LISPRO 300 UNITS/3 ML VIAL SQ SCH ×2 (11:35→18:37)
[2019-02-02 13:40] LABS: Hematocrit 19.2 % (37.5-50.1); Hemoglobin 6.6 g/dL (12.9-16.9)
[2019-02-02] MEDS ORDERED: levoFLOXacin 750 MG/150 ML 750 MG/150 ML BAG IVPB SCH (14:00)
[2019-02-02] MEDS: Desitin (Zinc Oxide) 56 GM TUBE TP PRN (20:49)
[2019-02-02 21:37] LABS: Hemoglobin 8.8 g/dL (12.9-16.9)
[2019-02-02 21:55] LABS: Calcium 6.9 mg/dL (8.6-10.3); Magnesium 2.6 mg/dL (1.6-2.6); Potassium 3.4 mEq/L (3.5-5.1)
[2019-02-03] MEDS: Meropenem 1,000 MG in 0.9 % Sodium Chloride Mini Bag 100 ML IVPB SCH ×3 (00:29→23:37)
[2019-02-03] MEDS: Hydrocortisone Sodium Succ 100 MG/2 ML VIAL IVP SCH ×4 (00:29→23:37)
[2019-02-03] MEDS: Insulin LISPRO 300 UNITS/3 ML VIAL SQ SCH ×5 (00:30→23:42)
[2019-02-03] MEDS: Artificial Tears SOLN 15 ML BOTTLE BOTH EYES SCH ×7 (00:30→23:38)
[2019-02-03] MEDS: Dexmedetomidine HCl 400 MCG/100 ML MLS IVC SCH ×2 (00:41→18:08)
[2019-02-03] MEDS: Amiodarone Premix 360 MG/200 ML BAG IVC SCH (03:06)
[2019-02-03 03:26] LABS: Basophils % 0.1 %; Hematocrit 25.8 % (37.5-50.1); Hemoglobin 8.6 g/dL (12.9-16.9); Immature Granulocytes % 1.4 % (0-4); Immature Platelets 7.3 % (1.1-6.1); Lymphocytes # 0.1 K/mcL (0.6-4.6); Lymphocytes % 1.6 %; Mean Corpuscular HGB Conc 33.3 g/dL (31.6-35.5); Mean Corpuscular Hemoglobin 31.3 pg (28.0-33.3); Mean Corpuscular Volume 93.8 fL (83.0-100.0); Mean Platelet Volume 11.2 fL (9.4-12.4); Monocytes # 0.4 K/mcL (0.0-1.3); Monocytes % 5.2 %; Platelet Count 124 K/mcL (140-400); Red Blood Count 2.75 M/mcL (4.19-5.50); Red Cell Distribution Width 18.4 % (11.5-14.5); Segmented Neutrophils % 91.7 %
[2019-02-03 03:30] LABS: Neutrophils # 7.2 K/mcL (1.6-8.9); White Blood Count 7.9 K/mcL (4.3-11.1)
[2019-02-03 03:48] LABS: Calcium 6.7 mg/dL (8.6-10.3); Potassium 3.4 mEq/L (3.5-5.1)
[2019-02-03] MEDS: Levalbuterol Neb 1.25 MG/3 ML IH SCH ×4 (04:02→21:06)
[2019-02-03 04:03] LABS: Anisocytosis 1+ (Not Present); Platelet Estimate Slight Decrease (Normal)
[2019-02-03 04:48] LABS: ABG Base Excess -2 mEq/L (-2 to 3); ABG HCO3 22 mEq/L (21-27); ABG Oxygen Saturation 98 % (95-98); ABG PCO2 30 mmHg (35-45); ABG PH 7.47 pH Units (7.32-7.45); ABG PO2 97 mmHg (85-104); ABG TCO2 23 mEq/L (20-26); Blood Gas Modality CPAP/PS; Blood Gas Pressure Support 8 cm H2O
[2019-02-03] MEDS ORDERED: 0.9 % Sodium Chloride 500 ML IVC ONE (05:24)
[2019-02-03] MEDS ORDERED: 0.9 % Sodium Chloride 500 ML ONE (06:04)
[2019-02-03] MEDS ORDERED: 0.9 % Sodium Chloride 250 ML ONE (06:19)
[2019-02-03] MEDS ORDERED: Calcium Gluconate 1gm/50mL 1 GM/50 ML BAG IVPB ONE (07:25)
[2019-02-03] MEDS: Folic Acid 1 MG TABLET GTUBE SCH (08:36)
[2019-02-03] MEDS: Chlorhexidine Rinse 15 ML MOUTHWASH MM SCH ×2 (08:36→20:24)
[2019-02-03] MEDS: Thiamine (B-1) 100 MG TABLET GTUBE SCH (08:36)
[2019-02-03] MEDS: Pantoprazole 40 MG VIAL IVP SCH (08:36)
[2019-02-03] MEDS: Cyanocobalamin (B-12) 1,000 MCG TABLET GTUBE SCH (08:36)
[2019-02-03] MEDS: Cholecalciferol (D-3) 1,000 UNIT (25MCG) TABLET PO SCH (08:36)
[2019-02-03 09:31] LABS: VBG Ionized Calcium 1.02 mmol/L (1.15-1.35)
[2019-02-03] MEDS: FentaNYL (PF) 1,000 MCG in 0.9 % Sodium Chloride 80 ML IVC SCH (11:49)
[2019-02-03] MEDS: Albumin 25% 25gram/100mL 25 GM/100 ML IV.SOLN IVPB SCH (18:06)
[2019-02-03] MEDS: Furosemide 20 MG/2 ML VIAL IVP SCH (18:06)
[2019-02-03] MEDS: levoFLOXacin 750 MG/150 ML 750 MG/150 ML BAG IVPB SCH (20:05)
[2019-02-03 21:39] LABS: Bilirubin,Urine Small (Negative); Blood,Urine Large (Negative); Clarity,Urine Turbid (Clear); Color,Urine Other (Yellow); Glucose,Urine (UA) Normal (Normal); Ketones,Urine Trace mg/dL (Negative); Leukocyte Esterase,Urine Moderate (Negative); Nitrite,Urine Negative (Negative); Protein,Urine 100 mg/dL (Neg-Trace); Specific Gravity,Urine 1.024 (1.010-1.025); Urobilinogen,Urine Normal (Normal)
[2019-02-03 21:40] LABS: Squamous Epithelial Cell,Urine Few per lpf (None-Few); WBC,Urine 15-30 per hpf (0-3)
[2019-02-03 21:55] LABS: Bacteria,Urine Few per hpf (None-Few)
[2019-02-03 21:56] LABS: Yeast,Urine Moderate per hpf (None Seen)
[2019-02-03 22:24] LABS: Protein/Creatinine Ratio,Urine 1.78 mg/mg (0.00-0.20); Sodium, Urine 21.6 mEq/L
[2019-02-04] MEDS ORDERED: Ringers Solution, Lactated 500 ML IVC ONE (01:28)
[2019-02-04 01:37] LABS: Hemoglobin 10.1 g/dL (12.9-16.9)
[2019-02-04] MEDS: FentaNYL (PF) 1,000 MCG in 0.9 % Sodium Chloride 80 ML IVC SCH ×2 (02:12→12:38)
[2019-02-04] MEDS: Amiodarone Premix 360 MG/200 ML BAG IVC SCH (02:13)
[2019-02-04] MEDS ORDERED: Ringers Solution, Lactated 1,000 ML ONE (03:14)
[2019-02-04] MEDS ORDERED: Ringers Solution, Lactated 1,000 ML IVC SCH (03:15)
[2019-02-04] MEDS: Artificial Tears SOLN 15 ML BOTTLE BOTH EYES SCH ×3 (03:24→11:58)
[2019-02-04] MEDS: Levalbuterol Neb 1.25 MG/3 ML IH SCH ×2 (03:40→09:38)
[2019-02-04 04:32] LABS: Basophils % 0.1 %; Immature Granulocytes % 2.1 % (0-4); Lymphocytes # 0.1 K/mcL (0.6-4.6); Lymphocytes % 0.8 %; Mean Corpuscular HGB Conc 33.3 g/dL (31.6-35.5); Mean Corpuscular Hemoglobin 30.7 pg (28.0-33.3); Mean Corpuscular Volume 92.2 fL (83.0-100.0); Mean Platelet Volume 11.5 fL (9.4-12.4); Monocytes # 0.4 K/mcL (0.0-1.3); Monocytes % 3.1 %; Neutrophils # 11.1 K/mcL (1.6-8.9); Platelet Count 112 K/mcL (140-400); Red Blood Count 2.93 M/mcL (4.19-5.50); Red Cell Distribution Width 18.9 % (11.5-14.5); Segmented Neutrophils % 93.9 %; White Blood Count 11.8 K/mcL (4.3-11.1)
[2019-02-04 04:50] LABS: Calcium 6.9 mg/dL (8.6-10.3); Potassium 3.5 mEq/L (3.5-5.1)
[2019-02-04] MEDS: Furosemide 20 MG/2 ML VIAL IVP SCH (04:54)
[2019-02-04] MEDS: Insulin LISPRO 300 UNITS/3 ML VIAL SQ SCH (04:54)
[2019-02-04] MEDS: Albumin 25% 25gram/100mL 25 GM/100 ML IV.SOLN IVPB SCH (04:54)
[2019-02-04 05:18] LABS: Anisocytosis 1+ (Not Present); Poikilocytosis 1+ (Not Present)
[2019-02-04 05:19] LABS: Platelet Estimate Slight Decrease (Normal)
[2019-02-04 06:18] LABS: ABG Base Excess -2 mEq/L (-2 to 3); ABG HCO3 21 mEq/L (21-27); ABG Oxygen Saturation 97 % (95-98); ABG PCO2 31 mmHg (35-45); ABG PH 7.44 pH Units (7.32-7.45); ABG PO2 83 mmHg (85-104); ABG TCO2 22 mEq/L (20-26); Blood Gas Modality CPAP/PS; Blood Gas Pressure Support 8 cm H2O
[2019-02-04] MEDS: Cyanocobalamin (B-12) 1,000 MCG TABLET GTUBE SCH (08:44)
[2019-02-04] MEDS: Cholecalciferol (D-3) 1,000 UNIT (25MCG) TABLET PO SCH (08:44)
[2019-02-04] MEDS: Folic Acid 1 MG TABLET GTUBE SCH (08:44)
[2019-02-04] MEDS: Thiamine (B-1) 100 MG TABLET GTUBE SCH (08:44)
[2019-02-04] MEDS: Chlorhexidine Rinse 15 ML MOUTHWASH MM SCH (09:03)
[2019-02-04] MEDS: Pantoprazole 40 MG VIAL IVP SCH (09:03)
[2019-02-04] MEDS: Hydrocortisone Sodium Succ 100 MG/2 ML VIAL IVP SCH (09:03)
[2019-02-04] MEDS ORDERED: *HR* LORazepam 2 MG/ML VIAL IVP PRN (09:59)
[2019-02-04] MEDS ORDERED: Atropine Sulfate 1% 40 DROP/2 ML BOTTLE SL PRN (10:04)
[2019-02-04] MEDS ORDERED: Glycopyrrolate 0.2 MG/ML VIAL IVP ONE (10:05)
[2019-02-04] MEDS ORDERED: Scopolamine Patch 1.5 MG PATCH.TD72 TD SCH (11:00)
[2019-02-04] MEDS: Meropenem 1,000 MG in 0.9 % Sodium Chloride Mini Bag 100 ML IVPB SCH (11:30)
[2019-02-04 14:17] VITALS: BP 66/51
== END 2019-02-04 14:40 | disposition hospice, home (50) | DRG 870 ==
LOC: EMEROOARM 06:45 → 2ANU 06:45 → ICNU 01-28 04:17
PROVIDERS: ADMIT Student in an Organized Health Care Education/Training Program; ATTEND Student in an Organized Health Care Education/Training Program